=== PATIENT | female | born 1940 | race Caucasian/White ===

== ENCOUNTER 2018-07-30 09:00 | Outpatient (CLI) | payer MEDICARE, BC ==
--- NOTE | 2018-07-30 11:21 | BD ---
DEXA BONE DENSITOMETRY: (Dual energy X-ray Absorptiometry) Date: 07/30/18 HISTORY: 78-year-old postmenopausal white female for baseline, age-related osteoporosis screening examination. Height: 61 Weight: 109 lbs Age of menopause: 62 years COMPARISON: None available. FINDINGS: The bone mineral density (BMD) is given in grams per square centimeter (g/cm2): LUMBAR SPINE: BMD(g/cm2) T-score Z-score L1: 1.112 1.1 3.3 L2: 1.087 0.5 3.0 L3: 1.129 0.4 3.0 L4: 1.063 0.0 2.7 Total: 1.096 0.4 2.9 HIP: Femoral neck: 0.728 -1.1 1.0 Total: 0.918 -0.2 1.6 FRAX WHO Fracture Risk Assessment Tool: 10 Year Fracture Risk * Major osteoporotic fracture: 9.2% Hip fracture: 1.7% Reported Risk Factors: US(), Neck BMD=0.728, BMI=20.6 * Fracture probability is calculated for an untreated patient. Fracture probability may be lower if the patient has received treatment. IMPRESSION: 1. The mean bone mineral density of the lumbar spine is normal. Fracture risk is not increased. 2. The bone mineral density of the femoral neck is osteopenic. Fracture risk is increased. CHARLIE Turner POS: [facility]
--- NOTE | 2018-07-30 11:48 | RAD ---
THORACIC SPINE RADIOGRAPH SERIES TWO VIEWS: INDICATIONS: Age related osteoporosis. FINDINGS: There is an S-shaped curvature of the thoracolumbar spine, extending to the right thoracic spine and convexed to the left within the lumbar spine. There is accentuation of thoracic kyphosis. No eviden ce of an acute compression fracture or significant subluxation. There is multilevel endplate degener ative change. Osseous demineralization is noted. There is prominence of the partially imaged cardia c silhouette, as well as vascular calcification. Incidental note of osseous bridging of the anterior column of the lower cervical spine, incompletely assessed. Correlate for surgical history. IMPRESSION: 1. S-shaped scoliosis, thoracic kyphosis, and multilevel degenerative change of the demineralized th oracic spine. 2. No acute compression fracture is seen. POS: [facility]
--- NOTE | 2018-07-30 11:51 | RAD ---
CERVICAL SPINE SIX VIEWS: 07/30/2018 HISTORY: Spondylosis of the cervical spine. FINDINGS: Neutral lateral examination demonstrates osseous fusion at the C2-C3 and C6-C7 levels. There is farrah re degenerative change at C4-C5 and C5-C6 with disk space narrowing and osteophyte formation, both an teriorly and posteriorly. The neutral lateral exam demonstrates anterolisthesis at C7-T1, measuring in the 3 mm range. Flexion examination demonstrates C7-T1 anterolisthesis to increase to 4 mm. On e xtension, this anterolisthesis is approximately 3 mm. Frontal imaging demonstrates prominent bilater al multilevel facet and uncovertebral osteophyte formation, left greater than right, most prominent a t C3-C4, C4-C5, and C5-C6. Open-mouth odontoid view demonstrates a normal appearing dens and C1-C2 a rticulation. The dens appears grossly unremarkable on the Fuchs view. IMPRESSION: Severe multilevel degenerative change within the cervical spine, as detailed above. There is anterol isthesis at the C7-T1 level, as above. POS: [facility]
== END 2018-07-30 09:01 | disposition home or self-care (01) ==
LOC: BICMAMMO 09:00
PROVIDERS: ATTEND Internal Medicine Rheumatology
DX: M81.0 Age-related osteoporosis without current pathological fracture (principal); M47.892 Other spondylosis, cervical region; S13.9XXA Sprain of joints and ligaments of unspecified parts of neck, initial encounter; M43.13 Spondylolisthesis, cervicothoracic region; M41.9 Scoliosis, unspecified; M47.814 Spondylosis without myelopathy or radiculopathy, thoracic region; M85.859 Other specified disorders of bone density and structure, unspecified thigh
CPT/HCPCS: 72050; 72070; 77080

== ENCOUNTER 2018-08-22 09:22 | Emergency (ER) | payer MEDICARE, BC ==
[2018-08-22 10:15] LABS: #Basophils 0.1 thou/uL (0.0-0.2); #Eosinphils 0.1 thou/uL (0.0-0.7); #Lymphocytes 1.9 thou/uL (1.20-3.40); #Monocytes 0.6 thou/uL (0.11-0.59); #Neutrophils 6.5 thou/uL (1.40-6.50); %Basophils 1.1 % (0.0-1.0); %Eosinophils 1.1 % (0.0-10.0); %Lymphocytes 20.4 % (21.0-51.0); %Neutrophils 71.4 % (42.0-75.0); Hemoglobin 13.5 g/dL (12.0-16.0); Mean Corpuscular HGB CONC 34.7 g/dL (32.0-36.0); Mean Corpuscular Volume 95.3 fL (78.0-98.0); Platelet Count 203 thou/uL (130-400); RBC Distribution Width 12.6 % (11.5-14.5); Red Blood Cell (RBC) Count 4.09 mill/uL (4.20-5.40); White Blood Cell (WBC) Count 9.1 thou/uL (4.8-10.8)
[2018-08-22 10:18] LABS: Bilirubin Negative (Negative); Blood, Urine Trace (Negative); Clarity CLOUDY (Clear); Glucose, Urine (Dipstick) Negative (Negative); Leukocyte Negative (Negative); Nitrite Negative (Negative); Protein, Urine (Dipstick) Negative (Neg-Trace); Specific Gravity, Urine 1.012 (1.002-1.036); Urobilinogen 0.2 mg/dL (0.2-1.0)
[2018-08-22 10:24] LABS: Bacteria/HPF None Seen HPF (None Seen); Hyaline Casts/LPF 0-3 HYALINE CAST LPF (0-3 Hyaline); Pathc Cast-AUWi Flag 0.29 (0-2.49); RBC/HPF 0-3 HPF (0-3); WBC/HPF None Seen HPF (0-3)
[2018-08-22 10:28] LABS: ALT (SGPT) 13 U/L (8-55); AST (SGOT) 21 U/L (5-34); Albumin 4.3 g/dL (3.4-4.8); Alkaline Phosphatase 100 U/L (40-150); Anion Gap 15 mmol/L (10-20); BUN (Urea Nitrogen) 18 mg/dL (9.8-20.1); Bilirubin, Total 1.7 mg/dL (0.2-1.2); Calc. Creatinine Clearance 0 mL/min (70-130); Calcium 9.3 mg/dL (7.8-10.44); Carbon Dioxide 25 mmol/L (23-31); Chloride 104 mmol/L (98-107); Estimated GFR-MDRD 69; Globulin 3.5 g/dL (2.4-3.5); Glucose 95 mg/dL (83-110); Potassium 3.5 mmol/L (3.5-5.1); Protein, Total 7.8 g/dL (6.0-8.3); Sodium 140 mmol/L (136-145)
--- NOTE | 2018-08-22 10:46 | CT ---
CT OF THE HEAD: Date: 08/22/18 COMPARISON: None. HISTORY: Dizziness, bilateral ear pain. TECHNIQUE: Axial CT imaging at 5 mm intervals from vertex through skull base without contrast. FINDINGS: There is extensive periventricular and deep white matter hypodensity, evidence of significant small v essel disease. No intracranial hemorrhage, midline shift, mass effect, or ventricular enlargement. Im aged portion of left maxillary sinus is opacified. No acute osseous abnormality. IMPRESSION: Findings suggesting significant small vessel disease with no intracranial hemorrhage, midline shift, or mass effect. POS: [facility]
[2018-08-22] MEDS ORDERED: Meclizine HCl 25 MG TAB ONE (11:54)
[2018-08-22] MEDS ORDERED: Metoclopramide HCl 10 MG/2 ML VIAL ONE (11:54)
--- NOTE | 2018-08-28 17:20 | EKG ---
Test Reason : DIZZY Blood Pressure : / mmHG Vent. Rate : 080 BPM Atrial Rate : 051 BPM P-R Int : 000 ms QRS Dur : 082 ms QT Int : 398 ms P-R-T Axes : 000 -01 232 degrees QTc Int : 459 ms Atrial fibrillation Abnormal ECG Confirmed by BEE OLIVAS [id number]), publishing editor BONNIE OWENS ([id number]) on 08/28/2018 5:20:09 PM Referred By: MARTA Confirmed By:BEE OLIVAS
== END 2018-08-22 13:44 | disposition home or self-care (01) ==
LOC: ERS 09:22
DX: R42 Dizziness and giddiness (principal); I48.91 Unspecified atrial fibrillation; I10 Essential (primary) hypertension; Z79.899 Other long term (current) drug therapy
CPT/HCPCS: 70450; 80053; 81003; 81015; 84484; 85025; 87086; 93005; 96365; J2765

== ENCOUNTER 2018-10-27 07:39 | Outpatient (CLI) | payer MEDICARE, BC ==
[2018-10-27] MEDS ORDERED: Gadobenate Dimeglumine 529 MG/1 ML (20ML VIAL) ONE (10:14)
--- NOTE | 2018-10-27 10:37 | MRI ---
MRI BRAIN AND INTERNAL AUDITORY CANALS WITH AND WITHOUT CONTRAST: HISTORY: Sudden loss of hearing in the left ear. COMPARISON: None. TECHNIQUE: Brain and IAC MRI performed with and without intravenous Gadolinium administration. Multisequential, multiplanar imaging is performed. FINDINGS: BRAIN: The calvarium has a normal T1 marrow signal intensity. Midline brain parenchymal structures are unremarkable. No parenchymal mass, mass effect, or midline shift. Brain volume is age appropria te. Cortical padilla white matter differentiation is preserved. No evidence of hydrocephalus. There are T2 and FLAIR white matter hyperintensities due to chronic small vessel ischemic change. Central arterial flow voids are maintained. Absent restricted diffusion. Mild mucosal disease of the bilateral paranasal sinuses. Adequate mastoid air cell aeration. No pathologic enhancement of the brain parenchyma. IACs: Appropriate and essentially symmetric T2 signal intensity of both internal auditory canals and inner ear structures. Symmetric enhancement of the bilateral 7th and 8th, as well as 5th cranial ne rve complexes. IMPRESSION: 1. Age appropriate atrophy. 2. Chronic small vessel ischemic changes of the white matter. 3. Absent restricted diffusion. No acute infarct. No pathologic enhancement in the brain parenchym a. 4. No abnormal enhancement or signal intensity in either internal auditory canal or 7th or 8th crani al nerve complexes. POS: [facility]
== END 2018-10-27 07:40 | disposition home or self-care (01) ==
LOC: BICMRI 07:39
PROVIDERS: ATTEND Otolaryngology
DX: H90.3 Sensorineural hearing loss, bilateral (principal); H91.22 Sudden idiopathic hearing loss, left ear; G93.89 Other specified disorders of brain
CPT/HCPCS: 70553; 82565; A9577

== ENCOUNTER 2019-02-19 16:28 | Inpatient (IN) | payer MEDICARE, BC ==
[2019-02-19] MEDS ORDERED: Pantoprazole 40 MG VIAL ONE (19:47)
[2019-02-19 19:56] LABS: Hemoglobin 10.6 g/dL (12.0-16.0)
[2019-02-19 20:16] LABS: ALT (SGPT) 15 U/L (8-55); AST (SGOT) 20 U/L (5-34); Albumin 4.3 g/dL (3.4-4.8); Alkaline Phosphatase 107 U/L (40-150); Anion Gap 13 mmol/L (10-20); BUN (Urea Nitrogen) 18 mg/dL (9.8-20.1); Bilirubin, Total 2.2 mg/dL (0.2-1.2); Calc. Creatinine Clearance 0 mL/min (70-130); Calcium 9.4 mg/dL (7.8-10.44); Carbon Dioxide 28 mmol/L (23-31); Chloride 103 mmol/L (98-107); Estimated GFR-MDRD 70; Globulin 3.1 g/dL (2.4-3.5); Glucose 81 mg/dL (83-110); Potassium 3.6 mmol/L (3.5-5.1); Protein, Total 7.4 g/dL (6.0-8.3); Sodium 140 mmol/L (136-145)
[2019-02-19] MEDS ORDERED: Ondansetron PF 4 MG/2 ML Vial IVP PRN (21:12)
[2019-02-19] MEDS ORDERED: Ondansetron ODT 4 MG TAB SL PRN (21:12)
[2019-02-19] MEDS ORDERED: Acetaminophen 325 MG TAB PO PRN (21:12)
[2019-02-19 21:40] VITALS: BMI 17.7
[2019-02-19] MEDS: Pantoprazole 80 MG, Admixture Fee 1 EACH in Sodium Chloride 0.9% 100 ML IVP SCH (22:17)
--- NOTE | 2019-02-19 23:41 | HP ---
PRIMARY CARE DOCTOR: Gillian Villalba MD. CODE STATUS: Full code. TIME OF EVALUATION: 8:30 p.m. CHIEF COMPLAINT: "I've black stools." HISTORY OF PRESENT ILLNESS: This is a 78-year-old female patient with past medical history of atrial fibrillation, hypertension, came to the hospital after having 3 black stools. The patient has been noticing these since yesterday; however, she reports also having multiple episodes in the past few weeks, where she had some dark brown stools and has developed moderate gradually worsening fatigue with exertion. No diarrhea. No clear triggers. No alleviating factors. The patient does not take any NSAIDs. The patient had a recent colonoscopy that was normal. Never has had an EGD. No history of colon cancer or stomach cancer in the family. REVIEW OF SYSTEMS: CONSTITUTIONAL: No fever, chills, or generalized weakness. RESPIRATORY: No cough, sputum production, or shortness of breath. CARDIOVASCULAR: No chest pain or palpitation. GASTROINTESTINAL: No nausea. No vomiting, diarrhea, or abdominal pain. The patient does have melena. 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 GENITOURINARY: No burning on urination. EXTREMITIES: No leg swelling. All other systems were reviewed and negative except for the findings mentioned above. PAST MEDICAL HISTORY: Positive for findings mentioned in the HPI. PAST SURGICAL HISTORY: The patient has a history of appendectomy, hysterectomy, tonsillectomy. PSYCHIATRIC HISTORY: No previous psych history. SOCIAL HISTORY: No smoking history. No alcohol use. No drug use. FAMILY HISTORY: Includes malignancy in her mother. KNOWN ALLERGIES: Benadryl, iodine, pseudoephedrine, Sudafed. REPORTED MEDICATIONS: 1. Spironolactone. 2. Atorvastatin. 3. Temazepam. 4. Amlodipine. 5. Carvedilol. 6. Citalopram. 7. Eliquis. 8. . 9. Vitamin D3. 10. Colestipol. 11. Zetia. PHYSICAL EXAMINATION: VITAL SIGNS: On presentation, blood pressure 153/70 with heart rate 84, respiratory rate was 18, temperature 98.1. Pain was 0/10. Oxygen saturation was 98% on room air. GENERAL APPEARANCE: The patient is alert, oriented, not in acute distress. HEENT: Eyes, normal conjunctivae. Moist oral mucosa. Anicteric. NECK: No JVD. RESPIRATORY: Bilateral air entry. No rales. No wheezing. Symmetric expansion. CARDIOVASCULAR: Normal rate, regular rhythm. No murmurs. No gallop. No edema. ABDOMEN: Soft. Normal bowel sounds. MUSCULOSKELETAL: Baseline range of motion and strength. No tenderness. SKIN: Warm, intact. No pallor. No rash. No redness. Capillary refill seems to be intact. NEURO: No evidence of any new focal weakness. Cranial nerves seems to be intact. PSYCH: The patient is in good mood. No anxiety. Optimal judgment. LABORATORY DATA: Labs are reviewed. The patient has white count 7.1; hemoglobin initially was 10.8, the second one 10.6, and the previous records reviewed, the hemoglobin was 13.5; platelet count is 212. Chemistry; sodium 140, potassium 3.6, chloride 103, carbon dioxide 28, anion gap 13, BUN 18, creatinine 0.80, GFR 70, glucose 81, calcium 9.4. AST 20, ALT 15, alkaline phosphatase 107. LFTs were negative. ASSESSMENT AND PLAN: The patient will be placed in the hospital with following medical problems; 1. GI bleeding, unclear etiology. The patient was on blood thinner and last dose of Eliquis was more than 24 hours ago. We will monitor hemoglobin. The patient has been started on Protonix. Dr. Cochran will be consulted as per the patient's request. We will continue to watch hemodynamics and will treat accordingly. We will keep n.p.o. for possible procedure in the morning. Of note, the patient has normal colonoscopy recently done by Dr. Cochran. So most likely, she has had no upper gastrointestinal bleeding. 2. Acute blood loss anemia, this is mild. The patient has hemoglobin on records of 13, now is around 10.6. We will continue to monitor and we will treat accordingly. 3. Atrial fibrillation, rate is controlled. Reconcile home medications. We will hold anticoagulation for now. 4. Chronic anticoagulation due to atrial fibrillation, this is probably why the patient had worsening bleeding, will need to be restarted after GI clears the patient. 5. Uncontrolled hypertension. The patient presented with systolic blood pressure 153, that was high. We will reconcile home medications. We will not treat aggressively since the patient is bleeding, may develop hypotension. 6. Deep venous thrombosis prophylaxis . Job ID: [id number]
[2019-02-20] LABS: Hemoglobin 9.8 g/dL (12.0-16.0)
[2019-02-20 04:15] LABS: #Eosinphils 0.2 thou/uL (0.0-0.7); #Lymphocytes 1.6 thou/uL (1.20-3.40); #Monocytes 0.6 thou/uL (0.11-0.59); #Neutrophils 4.1 thou/uL (1.40-6.50); %Basophils 0.5 % (0.0-1.0); %Eosinophils 2.9 % (0.0-10.0); %Monocytes 9.6 % (0.0-10.0); %Neutrophils 62.9 % (42.0-75.0); Hemoglobin 9.9 g/dL (12.0-16.0); Mean Corpuscular HGB CONC 33.9 g/dL (32.0-36.0); Mean Corpuscular Hemoglobin 32.1 pg (27.0-31.0); Mean Corpuscular Volume 94.7 fL (78.0-98.0); Mean Platelet Volume 7.3 fL (7.4-10.4); Platelet Count 187 thou/uL (130-400); RBC Distribution Width 13.2 % (11.5-14.5); Red Blood Cell (RBC) Count 3.07 mill/uL (4.20-5.40); White Blood Cell (WBC) Count 6.5 thou/uL (4.8-10.8)
[2019-02-20 04:30] LABS: Anion Gap 15 mmol/L (10-20); BUN (Urea Nitrogen) 15 mg/dL (9.8-20.1); Calc. Creatinine Clearance 48 mL/min (70-130); Calcium 8.9 mg/dL (7.8-10.44); Carbon Dioxide 23 mmol/L (23-31); Chloride 104 mmol/L (98-107); Estimated GFR-MDRD 79; Glucose 62 mg/dL (83-110); Potassium 3.3 mmol/L (3.5-5.1); Sodium 139 mmol/L (136-145)
[2019-02-20 06:12] LABS: Hemoglobin 9.6 g/dL (12.0-16.0)
[2019-02-20] MEDS: Pantoprazole 80 MG, Admixture Fee 1 EACH in Sodium Chloride 0.9% 100 ML IVP SCH (07:50)
[2019-02-20] MEDS ORDERED: Temazepam 15 MG CAP PO PRN (11:38)
[2019-02-20] MEDS ORDERED: D5 1/2 NS w/20 mEq KCL 1,000 ML IV SCH (11:45)
[2019-02-20 12:44] LABS: Hemoglobin 10.3 g/dL (12.0-16.0)
[2019-02-20] MEDS ORDERED: Lidocaine 1% PF 5 ML VIAL ONE (13:56)
[2019-02-20] MEDS ORDERED: PROPOFOL 200 MG/20 ML VIAL ONE (13:56)
[2019-02-20] MEDS ORDERED: HYDROmorphone 2 MG/ML VIAL SLOW IVP PRN (14:14)
[2019-02-20] MEDS ORDERED: Morphine Sulfate 2 MG/ML SYRINGE SLOW IVP PRN (14:14)
[2019-02-20] MEDS ORDERED: Promethazine HCl 25 MG/ML VIAL SLOW IVP PRN (14:14)
[2019-02-20] MEDS ORDERED: Promethazine HCl 25 MG/ML VIAL IM PRN (14:14)
[2019-02-20] MEDS ORDERED: Ondansetron HCl/PF 4 MG/2 ML Vial IVP PRN (14:14)
[2019-02-20] MEDS: D5 1/2 NS w/20 mEq KCL 1,000 ML IV SCH ×2 (16:01→21:22)
[2019-02-20] MEDS ORDERED: (Icosapent Ethyl [Vascepa] 2 GM) PO SCH (17:00)
[2019-02-20] MEDS ORDERED: Carvedilol 3.125 MG TAB PO SCH (17:00)
[2019-02-20] MEDS: Carvedilol 6.25 MG TAB PO SCH (17:39)
[2019-02-20] MEDS ORDERED: Atorvastatin Calcium 40 MG TAB PO SCH (21:00)
--- NOTE | 2019-02-20 21:11 | OP ---
DATE OF PROCEDURE: 02/20/2019 PROCEDURE PERFORMED: Esophagogastroduodenoscopy, control of hemorrhage. PREPROCEDURE DIAGNOSES: 1. Melena for 2-3 days, drop in hemoglobin from baseline, 13.5 on 08/17, 10.8 on admission and 9.6-10.3 late this morning to this afternoon. 2. She recently changed over from Coumadin to Eliquis for her chronic atrial fibrillation. POSTPROCEDURE DIAGNOSES: 1. Small erosion to the GE junction, slight oozing, injected 1:10,000 epinephrine. This does not appear to be Casi-Miguel tear, it was cauterized with 10-Scottish heater probe with good hemostasis. 2. 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 3. No other arteriovenous malformations or erosions seen. RECOMMENDATIONS: 1. Continue IV PPI q.12 hours. Can stop Protonix drip. 2. Advance diet. 3. Serial H and Hs, next to be checked tomorrow morning if there is no active overt severe hemorrhage. PROCEDURE IN DETAIL: After the patient was informed of the risks, benefits, and possible complications of endoscopy including perforation, bleeding, reaction to medication, and aspiration, informed consent was obtained. The patient was brought to the endoscopy suite, where she was sedated in gradual fashion. Once she was comfortable, a bite block was placed . The endoscope was advanced through the esophagus, stomach, and second and third portions of the duodenum. The esophagus was normal. The stomach was entered and found to be normal with no evidence of old blood or fresh blood. Retroflexed views were normal. The scope was brought back to the GE junction. A small erosion was seen with a slight defect consistent with a small erosion. It maybe that this had bled a little bit. We went ahead and injected that area with epinephrine 1:10,0000 and moved the scope down to the , 2nd and 3rd portions. No overt bleeding could be seen, but it appeared that there was some coffee-ground like material in this area. At the ampulla, she had clear bile coming from it. We evaluated the duodenum a little bit more and watched things and then found this AVM and pulled the superior aspect of the duodenum just distal to the bulb in the 2nd portion which was actively bleeding. This was cauterized with 10-Scottish heater probe and bleeding stopped. No other bleeding sites were seen. The duodenum was washed clear and there was no further coffee-ground like material, reaccumulation of old blood or fresh blood. Retroflexed views in the stomach were normal. The scope was brought back to the GE junction. A small erosion was seen. We decided to go and cauterize it with the 10-Scottish heater probe as well, which we did. The scope was removed. The patient tolerated the procedure well, there were no complications. Findings were discussed with the patient's . Job ID: [id number]
--- NOTE | 2019-02-20 23:39 | PDOC.PN ---
- Subjective Encounter Start Date: 02/20/19 Encounter Start Time: 13:00 Patient seen and examined for GI bleeding. No new episode. s/p EGD. No Melena. No other complaints. No overnight events - Objective Resuscitation Status - Order Detail: 02/19/19 21:57 Resuscitation Status Routine Resuscitation Status: FULL: Full Resuscitation MAR Reviewed: Yes Vital Signs & Weight: Vital Signs (12 hours) Temp Pulse Resp BP Pulse Ox 02/20/19 20:00 94 L 02/20/19 19:53 98.8 F 84 13 138/68 94 L 02/20/19 15:58 97.9 F 85 18 127/76 96 02/20/19 14:55 97.7 F 93 18 130/75 93 L Weight Admit Weight 100 lb 3 oz Weight 100 lb 3 oz I&O: 02/19/19 02/20/19 02/21/19 06:59 06:59 06:59 Intake Total 308.9 200 Balance 308.9 200 Result Diagrams: 02/21/19 05:40 02/21/19 05:40 Phys Exam - Physical Examination Constitutional: NAD Neck: no JVD Respiratory: no wheezing, no rales, no rhonchi, clear to auscultation bilateral Cardiovascular: RRR, no rub no heaves/pulsations Gastrointestinal: soft, non-tender, no distention, positive bowel sounds Musculoskeletal: no edema, pulses present Neurological: non-focal, normal sensation, moves all 4 limbs Psychiatric: normal affect, A&O x 3 Dx/Plan - Plan DVT proph w/SCDs IMPRESSION: GI bleeding due to AVM Acute blood loss anemia Par Afib - anticoag on hold HTN Hypokalemia CKd 2 HLD PLAN: Transfuse PRN if Hb <7 Monitor H/H AM labs s/p EGD Change PPI drip to IV PPI BID Resume Amlodipine/Aldactone Cont Coreg Cont other meds as below Review of Systems - Review of Systems Respiratory: negative: Cough, Dry, Shortness of Breath, Hemoptysis, SOB with Excertion, Pleuritic Pain, Sputum, Wheezing Cardiovascular: negative: chest pain, palpitations, orthopnea, paroxysmal nocturnal dyspnea, edema, light headedness, other Gastrointestinal: negative: Nausea, Vomiting, Abdominal Pain, Diarrhea, Constipation, Melena, Hematochezia, Other - Medications/Allergies Allergies/Adverse Reactions: Allergies Allergy/AdvReac Type Severity Reaction Status Date / Time diphenhydramine Allergy Verified 02/19/19 23:42 [From Benadryl] Iodine and Iodide Containing Allergy Verified 02/19/19 23:42 Produc pseudoephedrine HCl Allergy Verified 02/19/19 21:23 [From Sudafed] zolpidem [From Ambien] Allergy Verified 02/19/19 21:23 Medications: Current Medications Acetaminophen (Tylenol) 650 mg PO Q4H PRN PRN Reason: Headache/Fever or Pain Stop: 02/23/19 07:30 Last Admin: 02/20/19 17:41 Dose: 650 mg Amlodipine Besylate (Norvasc) 2.5 mg PO DAILY [facility] Atorvastatin Calcium (Lipitor) 80 mg PO HS [facility] Last Admin: 02/20/19 21:21 Dose: 80 mg Carvedilol (Coreg) 6.25 mg PO BID-WM [facility] Last Admin: 02/20/19 17:39 Dose: 6.25 mg Cholecalciferol (Vitamin D3) 5,000 units PO DAILY [facility] Colestipol HCl (Colestid) 1 gm PO BID-WM [facility] Last Admin: 02/20/19 17:39 Dose: 1 gm Ezetimibe (Zetia) 10 mg PO DAILY [facility] Escitalopram Oxalate (Lexapro) 10 mg PO DAILY [facility] Estradiol (Estrace) 0.5 mg PO DAILY [facility] Potassium Chloride/Dextrose/Sod Cl (D5 1/2 Ns W/20 Meq Kcl) 1,000 mls @ 75 mls/ hr IV .[id number] [facility] Last Admin: 02/20/19 21:22 Dose: 1,000 mls (Icosapent Ethyl [ (Vascepa] 2 Gm)) 2 gm PO BID-WM [facility] Ondansetron HCl (Zofran) 4 mg IVP Q6H PRN PRN Reason: Nausea/Vomiting Stop: 02/24/19 07:30 Ondansetron HCl (Zofran Odt) 4 mg SL Q6H PRN PRN Reason: Nausea/Vomiting Stop: 02/23/19 07:30 Pantoprazole Sodium (Protonix) 40 mg IVP DAILY [facility] Sodium Chloride (Flush - Normal Saline) 10 ml IVF PRN PRN PRN Reason: Saline Flush Spironolactone (Aldactone) 25 mg PO Q2DAYS [facility] Temazepam (Restoril) 15 mg PO HS PRN PRN Reason: Insomnia Last Admin: 02/20/19 21:21 Dose: 15 mg
[2019-02-21] MEDS: D5 1/2 NS w/20 mEq KCL 1,000 ML IV SCH (04:11)
[2019-02-21 06:15] LABS: #Eosinphils 0.1 thou/uL (0.0-0.7); #Lymphocytes 1.4 thou/uL (1.20-3.40); #Neutrophils 8.2 thou/uL (1.40-6.50); %Basophils 0.2 % (0.0-1.0); %Eosinophils 0.9 % (0.0-10.0); %Lymphocytes 13.3 % (21.0-51.0); %Neutrophils 76.6 % (42.0-75.0); Hemoglobin 8.8 g/dL (12.0-16.0); Mean Corpuscular HGB CONC 32.9 g/dL (32.0-36.0); Mean Corpuscular Hemoglobin 31.1 pg (27.0-31.0); Mean Corpuscular Volume 94.4 fL (78.0-98.0); Mean Platelet Volume 7.7 fL (7.4-10.4); Platelet Count 178 thou/uL (130-400); RBC Distribution Width 13.5 % (11.5-14.5); Red Blood Cell (RBC) Count 2.84 mill/uL (4.20-5.40); White Blood Cell (WBC) Count 10.6 thou/uL (4.8-10.8)
[2019-02-21 06:40] LABS: Anion Gap 11 mmol/L (10-20); BUN (Urea Nitrogen) 11 mg/dL (9.8-20.1); Calc. Creatinine Clearance 41 mL/min (70-130); Calcium 8.6 mg/dL (7.8-10.44); Carbon Dioxide 27 mmol/L (23-31); Chloride 105 mmol/L (98-107); Estimated GFR-MDRD 67; Glucose 140 mg/dL (83-110); Magnesium 1.5 mg/dL (1.6-2.6); Potassium 3.5 mmol/L (3.5-5.1); Sodium 139 mmol/L (136-145)
[2019-02-21] MEDS ORDERED: Pantoprazole 40 MG VIAL IVP SCH (09:00)
[2019-02-21] MEDS ORDERED: Escitalopram Oxalate 10 mg Tablet PO SCH (09:00)
[2019-02-21] MEDS ORDERED: Spironolactone 25 MG TAB PO SCH (09:00)
[2019-02-21] MEDS ORDERED: Amlodipine 5 MG TAB PO SCH (09:00)
[2019-02-21] MEDS ORDERED: Estradiol 1 MG TAB PO SCH (09:00)
[2019-02-21] MEDS ORDERED: Ezetimibe 10 MG TAB PO SCH (09:00)
[2019-02-21] MEDS: Carvedilol 6.25 MG TAB PO SCH (10:14)
[2019-02-21] MEDS ORDERED: Magnesium Sulfate 2 GM in Sodium Chloride 0.9% 100 ML IVPB SCH (10:15)
[2019-02-21] MEDS ORDERED: Potassium Chloride 10 MEQ TAB PO SCH ×2 (10:15→17:00)
[2019-02-21] MEDS ORDERED: Magnesium 2 GM/50 ML 2 GM in Premix Bag 1 BAG IVPB SCH (10:45)
[2019-02-21 12:53] VITALS: BP 99/57; TEMP 97.7
--- NOTE | 2019-02-21 13:18 | PRG ---
DATE OF SERVICE: 02/21/2019 SUBJECTIVE: Ms. Davis is tolerating diet last night. She has had no melena and no nausea or vomiting. PHYSICAL EXAMINATION: VITAL SIGNS: Temperature is 97, pulse . ABDOMEN: Soft and nontender. EXTREMITIES: No clubbing, cyanosis, or edema. LABORATORY DATA: Hemoglobin is 8.8, white count is 10.6, platelet count 173. ASSESSMENT: Upper gastrointestinal bleeding, likely due to anticoagulation with Eliquis and bleeding AVMs found at endoscopy. She had a colonoscopy last year, which was normal and this does not need to be repeated. RECOMMENDATIONS: We will change Protonix to p.o., advance diet, and we will check a hemoglobin this afternoon. If it remains stable, I think she can go home and then resume her Eliquis in about 3 days. ADDENDUM: I talked with Dr. Fitch and he wants to decrease her Eliquis to 2.5 mg b.i.d. from 5 mg b.i.d. when this is resumed. Job ID: [id number]
--- NOTE | 2019-02-21 18:07 | DIS ---
DATE OF ADMISSION: 02/19/2019 DATE OF DISCHARGE: 02/21/2019 DISCHARGE DISPOSITION: Home. FOLLOWUP: 1. Follow up with primary care physician, Dr. Carri Maguire, after 1 week. 2. Follow up with Dr. White and Dr. Fitch in 2 weeks. ALLERGIES: THE PATIENT IS ALLERGIC TO MULTIPLE MEDICATIONS INCLUDING IODINE, BENADRYL, AMBIEN, AND SUDAFED. DISCHARGE MEDICATIONS: Eliquis has been reduced to 2.5 mg twice a day. The patient will restart Eliquis on 23 February. All other home medications were left unchanged. INPATIENT PROCEDURES: On February 20, 2019, the patient underwent EGD, that showed small erosion to the GE junction with slight oozing. This was injected with epinephrine. There was also arteriovenous malformation, actively bleeding in the duodenal second portion that was cauterized. The patient was seen and examined on the day of discharge. Denies any new complaints. No chest pain, shortness of breath, or palpitations reported. Repeat basic metabolic profile with magnesium after 1 or 2 weeks is recommended, primary care physician advised to follow. SIGNIFICANT LABORATORY DATA: Potassium at discharge 3.5 and magnesium at discharge 1.5, replaced. BRIEF HOSPITAL COURSE: The patient is a 78-year-old female with chronic atrial fibrillation on Eliquis, presented to the hospital with dark tarry stools. Please refer to the history and physical by Dr. Rand for further details. The patient was admitted to the hospital with a diagnosis of GI bleeding. Hemoglobin was closely monitored. Hemoglobin on admission was 10.6. At discharge is 9.0. She underwent EGD as discussed above. Stool for occult blood was positive. The case was discussed with Dr. Fitch, who recommended reducing Eliquis to 2.5 mg twice a day. She will resume Eliquis after 24 hours. She also had some electrolyte abnormalities, which were replaced. She appears stable for discharge. FINAL DIAGNOSES: 1. Upper gastrointestinal bleeding secondary to small erosions to the gastroesophageal junction as well as arteriovenous malformation in the second portion of the duodenal. 2. Acute blood loss anemia. 3. Chronic atrial fibrillation on anticoagulation. 4. Hypertension. 5. Anxiety. 6. Hypokalemia, replaced. 7. Hypomagnesemia, replaced. 8. Chronically elevated total bilirubin. Primary care physician advised to follow. 9. Chronic kidney disease stage 2. 10. Hyperlipidemia. PLAN: Plan of care was discussed with the patient in detail and she stated understanding. Job ID: [id number]
--- NOTE | 2019-02-21 22:40 | CON ---
DATE OF CONSULTATION: 02/20/2019 REASON FOR CONSULT: GI bleed. HISTORY OF PRESENT ILLNESS: Ms. Davis is a pleasant 78-year-old female who came to the emergency room secondary to feeling weak, progressively over the past 4-6 weeks, and development of melenic stools yesterday morning. She gone to urgent care on the [place] area, where she had a blood count. She was found to be anemic and they sent her over to the hospital for admission. She notes that she just had decreased exercise tolerance recently. She has been eating well, but in our office had some darker stools and yesterday morning had 3 black stools, prompting her to go in for evaluation. She does take Eliquis. She had previously been on Coumadin, but has been off this for a few months, and is on Eliquis now for atrial fibrillation. She does not take any NSAIDs or aspirin. Only takes Tylenol for [id number] pain reliever. She did have a normal colonoscopy presumably for chronic diarrhea and biopsies were obtained, this was in 03/2018. She has had prior history of polyps before. She states she maybe lost 2-3 pounds, but overall had been doing well except for the fatigue. PAST MEDICAL HISTORY: Atrial fibrillation with no coronary artery disease. PAST SURGICAL HISTORY: 1. Appendectomy. 2. Hysterectomy. 3. Tonsillectomy. 4. Recent colonoscopy. SOCIAL HISTORY: No smoking, alcohol, or drug use. Her is here at the bedside with her. FAMILY HISTORY: Malignancy in her mother, she is unsure of what type. MEDICATIONS AT HOME: 1. Spironolactone. 2. Atorvastatin. 3. Temazepam. 4. Amlodipine. 5. Carvedilol. 6. Eliquis. 7. Citalopram. 8. Vitamin D3. 9. Colestipol. 10. Zetia. ALLERGIES: BENADRYL, IODINE, AND SUDAFED. PRESENT MEDICATIONS: Here; 1. Tylenol. 2. Carvedilol. 3. Zofran. 4. Protonix drip. 5. D5 half-normal with 20 K at 125 an hour. 6. Restoril. REVIEW OF SYSTEMS: Negative for chest pain. Negative for palpitations. Negative for dyspnea on exertion, shortness of breath, cough, wheezing, or abdominal pain. She has had that comes out between her vaginal and rectal area at times and sometimes there is bright red blood there. PHYSICAL EXAMINATION: VITAL SIGNS: Temperature 97, pulse 89, blood pressure 115/63. GENERAL: She is a thin. She is alert and oriented to person, place, and time. She is in no distress. HEENT: Oropharynx with no lesions. She is slightly pale. LUNGS: Clear. HEART: Regular rate and rhythm without clicks or murmurs. Slightly irregular. ABDOMEN: Soft. RECTAL: Some melenic stool. Exam of the perianal area and vaginal area reveals a little bit of skin atrophy at the posterior fornix of the vaginal areas. LABORATORY DATA: Hemoglobin was 9.8 yesterday at 2300 hours; it was 10.6 at 1900 hours; at 1223 hours, it was 13.5; this morning, her hemoglobin is 9.6. Platelets are 187. INR has not been done as she is on Eliquis. Sodium 139, potassium 3.3, BUN and creatinine 15 and 0.72. Liver function tests were normal on the except for bilirubin of 2.2. It seems that she has had intermittent mildly elevated bilirubin for years. ASSESSMENT: 1. Gastrointestinal bleed, likely upper, on Eliquis. She has been off now for 48 hours, last dose was Thursday evening. She is stable, but has had a significant drop in hemoglobin. She is on a proton pump inhibitor now. Plan for EGD today, IV Protonix, IV fluids. 2. History of mildly elevated bilirubin, this is likely syndrome, has been noted over the years. 3. Recent colonoscopy normal. 4. Atrial fibrillation, on beta jeremy, off Eliquis for just about 48 hours. Job ID: [id number]
== END 2019-02-21 17:00 | disposition home or self-care (01) | DRG 378 ==
LOC: ERS 16:28 → T4-A 19:30
PROVIDERS: ADMIT Internal Medicine; ATTEND Internal Medicine
PROC: 0W3P8ZZ Control Bleeding in Gastrointestinal Tract, Via Natural or Artificial Opening Endoscopic (ICD-10-PCS; principal; 2019-02-20)
DX: K31.811 Angiodysplasia of stomach and duodenum with bleeding (principal); D62 Acute posthemorrhagic anemia; I12.9 Hypertensive chronic kidney disease with stage 1 through stage 4 chronic kidney disease, or unspecified chronic kidney disease; N18.2 Chronic kidney disease, stage 2 (mild); E78.5 Hyperlipidemia, unspecified; E87.6 Hypokalemia; K28.4 Chronic or unspecified gastrojejunal ulcer with hemorrhage; I48.2 Chronic atrial fibrillation; F41.9 Anxiety disorder, unspecified; E83.42 Hypomagnesemia; E80.7 Disorder of bilirubin metabolism, unspecified; Z90.49 Acquired absence of other specified parts of digestive tract; Z90.89 Acquired absence of other organs; Z90.710 Acquired absence of both cervix and uterus; Z88.8 Allergy status to other drugs, medicaments and biological substances; Z79.01 Long term (current) use of anticoagulants
CPT/HCPCS: 36415; 80048; 80053; 82274; 83735; 85014; 85018; 85025; 86850; 86900; 86901; 96374; C9113; J2001; J2704; J3475; J3490

== ENCOUNTER 2019-03-01 00:51 | Inpatient (IN) | payer MEDICARE, BC ==
[2019-03-01 01:53] LABS: #Basophils 0.1 thou/uL (0.0-0.2); #Eosinphils 0.2 thou/uL (0.0-0.7); #Monocytes 0.7 thou/uL (0.11-0.59); #Neutrophils 5.7 thou/uL (1.40-6.50); %Basophils 0.7 % (0.0-1.0); %Eosinophils 2.3 % (0.0-10.0); %Lymphocytes 23.4 % (21.0-51.0); %Monocytes 7.9 % (0.0-10.0); %Neutrophils 65.5 % (42.0-75.0); Hemoglobin 7.3 g/dL (12.0-16.0); Mean Corpuscular HGB CONC 33.6 g/dL (32.0-36.0); Mean Corpuscular Hemoglobin 31.5 pg (27.0-31.0); Mean Corpuscular Volume 93.9 fL (78.0-98.0); Mean Platelet Volume 6.9 fL (7.4-10.4); Platelet Count 232 thou/uL (130-400); RBC Distribution Width 13.4 % (11.5-14.5); Red Blood Cell (RBC) Count 2.32 mill/uL (4.20-5.40); White Blood Cell (WBC) Count 8.7 thou/uL (4.8-10.8)
[2019-03-01 02:10] LABS: ALT (SGPT) 9 U/L (8-55); AST (SGOT) 15 U/L (5-34); Albumin 3.5 g/dL (3.4-4.8); Alkaline Phosphatase 66 U/L (40-150); Anion Gap 13 mmol/L (10-20); BUN (Urea Nitrogen) 18 mg/dL (9.8-20.1); Calc. Creatinine Clearance 0 mL/min (70-130); Calcium 9.1 mg/dL (7.8-10.44); Carbon Dioxide 26 mmol/L (23-31); Chloride 106 mmol/L (98-107); Estimated GFR-MDRD 55; Globulin 2.4 g/dL (2.4-3.5); Glucose 99 mg/dL (83-110); Potassium 3.8 mmol/L (3.5-5.1); Protein, Total 5.9 g/dL (6.0-8.3); Sodium 141 mmol/L (136-145)
[2019-03-01] MEDS ORDERED: Ondansetron PF 4 MG/2 ML Vial ONE (02:39)
[2019-03-01] MEDS ORDERED: Acetaminophen 325 MG TAB PO PRN (05:52)
[2019-03-01 06:35] VITALS: BMI 19.6
--- NOTE | 2019-03-01 06:52 | HP ---
CHIEF COMPLAINT: Hematochezia. HISTORY OF PRESENT ILLNESS: This patient is a 78-year-old female, who was just discharged recently. The patient was admitted at that time for GI bleed. She was seen by GI service and underwent endoscopy, which revealed small erosions at the gastroesophageal junction with slight oozing. This area was cauterized. There was also an AVM actively bleeding in the duodenum at the second portion. This was also cauterized. The patient had been on anticoagulation for atrial fibrillation. She was resumed back on that recently and today developed a recurrence of bright red blood per rectum. She indicates that the bleeding on this occasion is worse than it was on her previous admission. She also states that the stool was more black at that time, now it is bright red. She has some slight discomfort in her right lower quadrant, but otherwise denies any significant cramping. Denies fevers or chills and denies any nausea or vomiting. REVIEW OF SYSTEMS: All other systems were reviewed, all pertinent positives and negatives noted in the history of present illness. PAST MEDICAL HISTORY: Notable for hypertension, atrial fibrillation, and the above mentioned AVM. She also reports that she had a colonoscopy done in October of this year without significant findings, although she does have history of colonic polyps. FAMILY HISTORY: Mother had cancer. SOCIAL HISTORY: The patient is a nonsmoker, nondrinker, and nondrug user. She is . She is full code. Her would be her surrogate decision maker, should that be necessary. ALLERGIES: BENADRYL, IODINE, SUDAFED, AND PSEUDOEPHEDRINE. MEDICATIONS: 1. Eliquis 2.5 mg b.i.d. 2. Zetia 10 mg daily. 3. Temazepam 15 mg nightly. 4. Colestipol 1 g b.i.d. 5. Aldactone 25 mg daily. 6. Estradiol 0.5 mg daily. 7. Lexapro 10 mg daily. 8. Cholecalciferol 5000 units daily. 9. Coreg 6.25 b.i.d. 10. Atorvastatin 80 mg daily. 11. Amlodipine 2.5 daily. 12. Vascepa 2 g orally b.i.d. PHYSICAL EXAMINATION: VITAL SIGNS: Currently, she is systolics in the 90s, diastolics in the 50s, heart rates normal. She is afebrile. GENERAL APPEARANCE: A very pale, age-appropriate female, in no distress. Awake, alert, oriented, pleasant, and cooperative. HEENT: PERRL. No OP lesions. NECK: Supple and symmetric. No lymphadenopathy, JVD, or bruits. HEART: Irregularly irregular without murmurs, gallops, or rubs. LUNGS: Clear to auscultation bilaterally with good chest wall expansion and air exchange. ABDOMEN: Soft, nondistended. Positive bowel sounds. There is tenderness to palpation in the right lower quadrant with out guarding or rebound. EXTREMITIES: No cyanosis, clubbing, or edema. NEUROLOGIC: She appears to be fully intact with normal cognition and cranial nerves intact and spontaneous movement of all extremities. PSYCH: The patient has normal affect and behavior. LABORATORY DATA: White count is 8.7, hemoglobin 7.3, and platelets 232. Chemistries normal. Stool for occult blood is positive. No other report is currently available. IMPRESSION AND PLAN: 1. Gastrointestinal bleed with hematochezia, appears to be more consistent with a lower gastrointestinal bleed at this time. The patient had some arteriovenous malformations in the upper tract. It is possible she may have some bleeding in her lower gastrointestinal tract now as well. We will hold on her Eliquis. Transfuse as needed and consult GI. 2. History of atrial fibrillation, on Eliquis. We will hold Eliquis for now in light of the GI bleeding. 3. Hyperlipidemia. Continue with usual home medications. 4. Hypertension. We will hold off on anti-hypertensives for now due to the hypotension. Job ID: [id number]
[2019-03-01 08:41] LABS: #Basophils 0.1 thou/uL (0.0-0.2); #Eosinphils 0.1 thou/uL (0.0-0.7); #Lymphocytes 1.6 thou/uL (1.20-3.40); #Monocytes 0.5 thou/uL (0.11-0.59); %Basophils 0.8 % (0.0-1.0); %Eosinophils 1.4 % (0.0-10.0); %Lymphocytes 18.9 % (21.0-51.0); %Monocytes 5.9 % (0.0-10.0); Hemoglobin 7.8 g/dL (12.0-16.0); Mean Corpuscular Hemoglobin 32.1 pg (27.0-31.0); Mean Corpuscular Volume 94.4 fL (78.0-98.0); Mean Platelet Volume 7.5 fL (7.4-10.4); Platelet Count 189 thou/uL (130-400); RBC Distribution Width 12.8 % (11.5-14.5); Red Blood Cell (RBC) Count 2.43 mill/uL (4.20-5.40); White Blood Cell (WBC) Count 8.2 thou/uL (4.8-10.8)
[2019-03-01] MEDS ORDERED: Escitalopram Oxalate 10 mg Tablet PO SCH (10:30)
[2019-03-01 16:54] LABS: Hemoglobin 7.4 g/dL (12.0-16.0)
[2019-03-01] MEDS: Pantoprazole 40 MG VIAL IVP SCH (19:29)
[2019-03-01] MEDS: GoLYTELY 4,000 ml Bottle PO SCH (21:11)
[2019-03-01 23:14] LABS: Hemoglobin 9.1 g/dL (12.0-16.0)
--- NOTE | 2019-03-02 02:15 | CON ---
DATE OF CONSULTATION: 03/01/2019 REASON FOR CONSULTATION: Hematochezia. CONSULTING PHYSICIAN: Usama Lee MD HISTORY OF PRESENT ILLNESS: The patient is a 78-year-old female with past medical history of hypertension, atrial fibrillation, on anticoagulation, and a recent diagnosis of bleeding duodenal arteriovenous malformation, presenting with complaints of hematochezia. The patient was recently hospitalized approximately 2 weeks ago with complaints of melenic type stools, for which she underwent upper endoscopy on February 20, 2019. During that upper endoscopy, there was an area of mild oozing of blood at the GE junction that was successfully intervened upon with bipolar cautery, but a small arteriovenous malformation was also seen actively bleeding within the duodenum that was acted upon by bipolar cautery as well. She experienced good hemostasis with no further episodes of melena during that admission and was ultimately discharged to home. She restarted anticoagulation within 48 to 72 hours after admission and had been doing well up until yesterday when after dinner she was awoken at night with the sensation to have a bowel movement. Upon having a bowel movement, she had a large grossly bloody bowel movement with associated nausea, diaphoresis, and dizziness upon passage of this bowel movement. With the large amount of blood defecated, it prompted her to call EMS with transfer the patient to [facility] for further evaluation. On evaluation in the hospital, her H and H was slightly decreased when compared to her discharge H and H, and she was admitted to the hospital for further evaluation of her hematochezia. While as an inpatient, she has had 2 additional bloody bowel movements, one around noon today that consisted of a large amount of bloody stool seen by both patient and nursing staff, as well as an additional smaller bloody bowel movement later this evening. With the appearance of the bloody bowel movements that was associated with increased right-sided abdominal soreness, what seems like a presyncopal event with a larger bloody bowel movement earlier today, a warmer feeling all over her body, but not necessarily subjective fever. Currently, she denies any actual vomiting, dysphagia, odynophagia, or melenic type stools and of note, her last dose of Eliquis was yesterday evening prior to the onset of her hematochezia. REVIEW OF SYSTEMS: A 10-category review of systems was obtained with all responses negative except for the pertinent positives as listed in the HPI. PAST MEDICAL HISTORY: As per HPI. PAST SURGICAL HISTORY: Prior EGD and colonoscopy. FAMILY HISTORY: Denies any GI malignancies. SOCIAL HISTORY: Denies any tobacco, alcohol, or illicit drug use. OUTPATIENT MEDICATIONS: Reviewed. ALLERGIES: BENADRYL, IODINE, SUDAFED AND PSEUDOEPHEDRINE. PHYSICAL EXAMINATION: VITAL SIGNS: Temperature 98.1, pulse 104, blood pressure 128/63, respiratory rate 16, saturating 98% on room air. GENERAL: The patient was lying in bed, in no acute distress. Alert and oriented x4. HEENT: Normocephalic, atraumatic. NECK: Supple. No JVD or scleral icterus noted. CARDIOVASCULAR: Irregularly irregular rhythm with possible tachycardic rate, but difficult to tell with auscultation only. No discernible murmurs, gallops, or rubs. RESPIRATORY: Clear to auscultation bilaterally with no discernible wheezes or rales. ABDOMEN: Normoactive bowel sounds. Soft, nondistended, mild tenderness to palpation in the lower abdominal quadrants. EXTREMITIES: No cyanosis, clubbing, or edema. LABORATORY DATA: CBC with a white blood cell count of 8.2, hemoglobin 7.8, hematocrit 22.9, platelets 189. Chemistry with a sodium of 141, potassium 3.8, chloride 106, CO2 26, BUN 18, creatinine 0.99, glucose 99, AST 15, ALT 9, alkaline phosphatase 66, total bilirubin 1.0. IMAGING DATA: EGD performed on February 20, 2019 showed a small erosion at the GE junction that was slightly oozing blood, but successfully intervened upon with bipolar cautery. A small arteriovenous malformation was also seen in the second portion of the duodenum and successfully intervened upon by bipolar cautery. Upon review of the patient's chart, the patient underwent a colonoscopy on April 19, 2018, which showed a few small-mouthed diverticula seen within the sigmoid colon. Otherwise, normal mucosa was seen throughout the entire colon. ASSESSMENT AND PLAN: The patient is a 78-year-old female with past medical history of hypertension, atrial fibrillation, on anticoagulation, and recent diagnosis of duodenal arteriovenous malformation, presenting with hematochezia concerning for diverticular bleeding. Hematochezia. The patient is presenting with a recent history of a duodenal arteriovenous malformation that was actively oozing blood and creating a melenic type stools and a drop in her H and H. This was successfully intervened upon by bipolar cauterization on February 20, 2019 during the EGD. She was subsequently discharged to home and was doing well until yesterday evening when she had an acute onset of bright red blood per rectum, characterized as a large amount of blood both within the toilet and on the toilet paper. She was restarted on her Eliquis shortly after she was discharged from the hospital and most likely contributed to the larger bowel movement she has been having thus far. Given the presence of diverticulosis within the sigmoid colon, the appearance of hematochezia at this time is concerning for diverticular type bleed. However, this could also be indicative of a brisk upper GI bleed with a repeat upper endoscopy indicated to re-evaluate the upper GI tract. Differential could include gastritis, peptic ulcer disease, recurrent arteriovenous malformation in either the upper or lower GI tract, diverticular bleeding, Dieulafoy lesion, or colitis (less likely). RECOMMENDATIONS: 1. We would continue to trend H and H and transfuse as necessary to maintain an H and H of 7/21. 2. Continue to monitor clinically for signs of active GI bleeding. 3. We will continue to monitor the patient's vital signs with low threshold of transferring the patient to the IMCU for closer monitoring if she exhibits significant tachycardia and/or hypotension. 4. We will plan for both EGD and colonoscopy tomorrow for evaluation of both the upper and lower GI tract. Please make the patient n.p.o. at midnight with GoLYTELY prep in preparation for these procedures. 5. We would continue to hold any anticoagulation at this time. We will continue to follow. Please call with any questions. Job ID: [id number]
[2019-03-02 05:34] LABS: Hemoglobin 8.8 g/dL (12.0-16.0)
[2019-03-02] MEDS: GoLYTELY 4,000 ml Bottle PO SCH (09:30)
[2019-03-02] MEDS: Pantoprazole 40 MG VIAL IVP SCH ×2 (10:11→22:42)
[2019-03-02] MEDS: Escitalopram Oxalate 10 mg Tablet PO SCH (12:34)
[2019-03-02] MEDS ORDERED: PROPOFOL 200 MG/20 ML VIAL ONE (16:31)
--- NOTE | 2019-03-02 16:42 | OP ---
DATE OF PROCEDURE: 03/02/2019 PROCEDURES PERFORMED: Esophagogastroduodenoscopy with control of hemorrhage, colonoscopy (diagnostic). INDICATION FOR PROCEDURE: Hematochezia, GI bleeding. DESCRIPTION OF PROCEDURE: After the risks and benefits of the procedure were explained to the patient including risks of bleeding, infection, perforation, reactions to anesthesia, aspiration, and/or pain, informed consent was obtained. The patient was then taken to the endoscopy suite, where deep sedation was administered via propofol and anesthesia support. Once adequate sedation was achieved, the standard gastroscope was introduced into the mouth with intubation of the esophagus, stomach, and the proximal small intestine with the findings listed below. After careful inspection of the duodenal mucosa, a small ulceration was seen in the second portion of the duodenum consistent with the cauterized site from the previous endoscopy. It had an adherent clot consistent with recent active bleeding. Hemoclip x1 was placed across this with good hemostasis achieved. Upon conclusion of the upper endoscopy, all equipment was removed from the patient and the bed was rotated 180 degrees in anticipation of the colonoscopy. After a digital rectal examination was performed, the standard colonoscope was introduced into the rectum and advanced to the terminal ileum with mild difficulty requiring manual abdominal pressure to facilitate passage of the scope. The quality of the prep was fair to poor within the cecum and ascending colon with partial visualization of the colonic mucosa in that region. However, adequate views were obtained throughout the remainder of the colon. The patient tolerated the procedure well with no immediate perioperative complications. Upon conclusion of the procedure, all equipment was removed from the patient and she was transferred to PACU in satisfactory condition. EGD FINDINGS: Esophagus: Normal-appearing mucosa was seen in the proximal, mid, and distal esophagus. There was no evidence of erosions, ulcerations, mass, lesions, or active/recent bleeding. Stomach: A [id number] amount of bright red blood was seen throughout the entire stomach, but upon aggressive irrigation and suctioning, there was no underlying pathology to be seen. Otherwise, the gastric mucosa appeared normal within the cardia, fundus, body, greater curvature, antrum, and incisura. There was no evidence of erosions, ulcerations, mass, lesions, or active/recent bleeding. Duodenum: A moderate amount of bright red blood was seen upon entry into the duodenal bulb, but again with irrigation and suctioning, no identifiable pathology was seen. However, upon entry into the second portion of the duodenum, again increased amounts of bright red blood were seen with a 2 to 3 mm ulceration with an adherent clot overlying it seen within the second portion consistent with the previously treated arteriovenous malformation. The ulcer bed itself looked fairly intact, but with the adherent clot as a high-risk stigmata, this was intervened upon with hemoclip x1. At the end of the maneuver, there was no observed bleeding from the site. Otherwise, there was no evidence of erosions or mass lesions within the duodenal bulb or second portion of the duodenum. IMPRESSION: A 2 to 3 mm ulcerated region in the second portion consistent with the previously treated arteriovenous malformation showing adherent clot indicating high-risk stigmata bleeding, now status post hemoclip placement x1. Otherwise, normal upper endoscopy. COLONOSCOPY FINDINGS: Digital rectal exam: Normal. Normal findings were seen on external examination. Colon findings: A [id number] amount of retained greenish stool was seen in both the cecum and the ascending colon interfering with adequate visualization of the colonic mucosa. In these two regions, approximately 70% to 80% of the colonic mucosa was able to be adequately visualized. However, it was adequate for the evaluation of GI bleeding or mass lesions, both of which were not seen in this location. Intubation of the terminal ileum did not yield any bleeding or evidence of melena. Normal-appearing mucosa was seen at the ileocecal valve, appendiceal orifice, cecum, ascending colon, transverse colon, and descending colon. Scattered small diverticula were seen within the sigmoid colon consistent with [id number] sigmoid diverticulosis, but there was no evidence of increased mucosal erythema or bleeding within this region concerning for diverticulitis or diverticular bleeding. Normal-appearing mucosa was then seen within the rectum with rectal retroflexion unable to be performed due to the size of the patient's rectum itself (very small). Instead, no abnormalities were seen on slow withdrawal through the anal canal. IMPRESSION: 1. Fair to poor colonic preparation within the cecum and ascending colon interfering with visualization, but adequate for evaluation of gross mucosal lesions or active bleeding. 2. Normal terminal ileum without any evidence of active/recent bleeding. 3. Mild sigmoid diverticulosis. 4. No etiology of the patient's bleeding was seen during this portion of the examination. RECOMMENDATIONS: 1. Would continue to trend H and H and transfuse as necessary to maintain an H and H of 7/21. 2. Would continue to monitor clinically for signs of active GI bleeding. 3. Would advance the patient's diet to clear liquid diet and monitor as above. 4. Would continue PPI 40 mg b.i.d. for the foreseeable future. 5. If the patient does exhibit increased hematochezia or melena, would then consider only repeat upper endoscopy for further evaluation of this arteriovenous malformation. We will continue to follow. Please call with any questions. Job ID: [id number]
--- NOTE | 2019-03-02 16:57 | PRG ---
DATE OF SERVICE: 03/02/2019 SUBJECTIVE: The patient was seen and examined at the bedside. She stopped having some rectal bleeding after she did the bowel prep and she is waiting for her upper and lower scoping by Dr. Granda. OBJECTIVE: VITAL SIGNS: Blood pressure is 150/67, pulse is 93, temperature is 98.3, respiratory rate is 16, and O2 saturation is 97% on room air. HEENT: Head, atraumatic and normocephalic. Skin is palish. Conjunctivae palish. Oral mucosa is somewhat dry. NECK: Supple. LUNGS: Clear. HEART: S1 and S2, normal. ABDOMEN: Soft and nontender. Bowel sounds are present. EXTREMITIES: No clubbing, cyanosis, or edema. NEUROLOGIC: She is able to move her all 4 extremities. There is no any motor or sensory deficits. LABORATORY DATA: Hemoglobin is 8.8 and hematocrit 25.0. IMPRESSION: 1. Gastrointestinal bleeding. This is lower GI bleed, but she was placed on a Protonix IV in case of this is a high transit from upper gastrointestinal area. 2. History of atrial fibrillation, on Eliquis prior to this hospitalization. 3. Hyperlipidemia. 4. Hypertension, still holding most of her home medications because of the bleeding and borderline blood pressure she had. We will see whether she can be restarted on some of them tomorrow. We will have more information about her GI findings after colonoscopy and esophagogastroduodenoscopy. Job ID: [id number]
[2019-03-02] MEDS ORDERED: Temazepam 15 MG CAP PO PRN (23:59)
[2019-03-03] MEDS: Escitalopram Oxalate 10 mg Tablet PO SCH (09:33)
[2019-03-03] MEDS: Pantoprazole 40 MG VIAL IVP SCH ×2 (09:34→21:36)
[2019-03-03 12:19] LABS: Hemoglobin 9.7 g/dL (12.0-16.0)
--- NOTE | 2019-03-03 14:47 | PRG ---
DATE OF SERVICE: 03/03/2019 SUBJECTIVE: The patient is seen and examined at the bedside. She complains about some soreness around her rectum area. Also, she noticed some dysuria. No more bleeding. OBJECTIVE: VITAL SIGNS: Blood pressure is 105/55, pulse is 96, temperature is 98.3, respirations 16, and O2 saturation is 97% on room air. HEENT: Her head is atraumatic and normocephalic. Sclerae are nonicteric. Conjunctivae are palish. Oral mucosa is moist. NECK: Supple. LUNGS: Clear. HEART: S1 and S2. Irregularly irregular. No S3. No S4. No any murmur. ABDOMEN: Soft. Mildly tender in the suprapubic area. No guarding. No masses. EXTREMITIES: No clubbing, cyanosis, or edema. NEUROLOGIC: She is alert and oriented x4. There is no any motor or sensory deficits present. Cranial nerves are intact. LABORATORY DATA: Showed hemoglobin of 9.7 and hematocrit 28.4. IMPRESSION: 1. Gastrointestinal bleeding, status post EGD on colonoscopy, 2 to 3 mm ulcerated region in the second portion, but consistent with previously treated arteriovenous malformation showing at her end clot indicating high-risk stigmata bleeding. This was hemoclipped and otherwise, the scope was normal. Colonoscopy did not show any abnormalities. The patient does not have any gastrointestinal bleeding anymore. She is on IV Protonix, we will continue. She is on the clear liquids per GI recommendation, we will continue that. 2. Dysuria. We will check urinalysis and urine culture to rule out infection. 3. History of atrial fibrillation with ventricular rate controlled. 4. Hyperlipidemia. 5. Hypertension. Blood pressure medications; Coreg, amlodipine, and spironolactone on hold since her blood pressure is still running on the lower side. 6. Normocytic anemia secondary to gastrointestinal blood loss. She was transfused with additional unit of packed red blood cells yesterday, so in total, she had 3 and her hemoglobin level is up to 9.7 today. GI on-call, we will make decision about advancing her diet. Job ID: [id number]
[2019-03-03 17:14] LABS: Bacteria/HPF 3+ HPF (None Seen); Bilirubin Negative (Negative); Blood, Urine 2+ (Negative); Clarity Extra Turbid (Clear); Glucose, Urine (Dipstick) Normal (Negative); Leukocyte 500 Leu/uL (Negative); Nitrite Negative (Negative); Protein, Urine (Dipstick) 50 mg/dL (Neg-Trace); RBC/HPF Greater than 50 HPF (0-3); Urobilinogen 3 mg/dL (Less than 2); WBC/HPF Greater than 50 HPF (0-3)
[2019-03-03 17:26] LABS: Urine Culture Reflex No No
[2019-03-03] MEDS: Temazepam 15 MG CAP PO SCH (21:27)
--- NOTE | 2019-03-03 21:50 | PRG ---
DATE OF SERVICE: 03/03/2019 SUBJECTIVE: Ms. Davis has had no bleeding. She states she is not getting out of bed yet because she feels weak. She has had a sore bottom from one of the bathrooms. OBJECTIVE: VITAL SIGNS: Temperature 97.8, pulse 82, blood pressure 105/ 55. ABDOMEN: Soft and nontender. She has family at the bedside. LABORATORY DATA: Hemoglobin 9.7, stable, was 8.8 yesterday. ASSESSMENT: Gastrointestinal bleed secondary to arteriovenous malformation and anticoagulation status post therapy. RECOMMENDATIONS: She needs to get up and out of bed with physical therapy, so she can go home in a couple of days. She does not want to go to rehab as she has who is ill at home. PPI can be changed to p.o. Job ID: [id number]
[2019-03-04 05:16] LABS: Hemoglobin 8.2 g/dL (12.0-16.0)
[2019-03-04] MEDS: Escitalopram Oxalate 10 mg Tablet PO SCH (09:55)
[2019-03-04] MEDS ORDERED: Carvedilol 3.125 MG TAB PO SCH (10:45)
[2019-03-04] MEDS ORDERED: Ciprofloxacin 500 MG TAB PO SCH ×2 (10:45→11:00)
--- NOTE | 2019-03-04 10:47 | PRG ---
DATE OF SERVICE: 03/04/2019 SUBJECTIVE: The patient was seen and examined at the bedside. She is still quite weak and had some nausea. She did some physical therapy. She did not vomit. She does not have more rectal bleeding. OBJECTIVE: VITAL SIGNS: Blood pressure is 120/81, pulse is 111, temperature is 99, respiratory rate is 16, and O2 saturation is 94 on room air. GENERAL: She looks tired. SKIN: Palish. HEENT: Conjunctivae palish. Oral mucosa is moist. NECK: Supple. LUNGS: Clear. HEART: S1 and S2. Tachycardic. No S3. No S4. ABDOMEN: Soft, nontender, and nondistended. Bowel sounds are present. No organomegaly. EXTREMITIES: No clubbing, cyanosis, or edema. NEUROLOGIC: She is alert and oriented x4. There is no any motor or sensory deficits present. Cranial nerves are intact. LABORATORY DATA: Labs showed hemoglobin of 8.2 and hematocrit 23.5. Urinalysis showed extra turbid clarity of urine, 50 of protein, trace of ketones, 2+ blood, 3 urobilinogen, leukocyte esterase 500, rbc's greater than 50, wbc's greater than 50, squamous cells 11 to 20, and 3+ bacteria. Urine culture is pending. IMPRESSION: 1. Gastrointestinal bleeding secondary to arteriovenous malformation and anticoagulation status post therapy. 2. Most likely urinary tract infection. We will start her on fluoroquinolones p.o. 3. History of atrial fibrillation with ventricular rate controlled. 4. Hyperlipidemia. 5. Hypertension. 6. Normocytic anemia secondary to gastrointestinal blood loss. PLAN: Plan is to continue her PT. Continue follow up on her general status. She is still weak. We will check her hemoglobin and hematocrit tomorrow morning. I will start on carvedilol smaller dose 3.125 twice a day since she is tachycardic and her atrial fibrillation is showing with some tachycardia. Her low blood pressure does not allow me to start her on full regimen she is on at home, which include spironolactone, carvedilol at 6.25 mg twice a day, and amlodipine 2.5 mg. She should be able to go home in the next day or two. In the meantime, we will start her on Cipro for her possible UTI and we should get the culture of her urine preliminary report today. Job ID: [id number]
[2019-03-04] MEDS ORDERED: Carvedilol 6.25 MG TAB PO SCH (11:00)
[2019-03-04] MEDS ORDERED: Iron, Sodium Ferric Gluconate 250 MG in Sodium Chloride 0.9% 100 ML IVPB SCH (18:00)
--- NOTE | 2019-03-04 18:00 | PRG ---
DATE OF SERVICE: 03/04/2019 SUBJECTIVE: Ms. Davis feels well. She does have bottom. She is getting some cream placed on that. She has urinary tract infection. She has a little urinary incontinence. She did get up with physical therapy today once for walking and once in the chair. She still feels weak. OBJECTIVE: VITAL SIGNS: Temperature max 99, pulse 90, and blood pressure 103/54. LUNGS: Clear. HEART: Regular rate and rhythm. ABDOMEN: Soft and nontender. LABORATORY DATA: Hemoglobin is 8.2, profile normal. Urinalysis showed red blood cells and bacteria, but also a lot of squamous cells, possibly contaminant. No urine culture was obtained. ASSESSMENT: 1. Gastrointestinal bleed, secondary to arteriovenous malformation. It was clipped on this most recent endoscopy. 2. Anemia, symptomatic. We will give her some IV iron to help out. 3. Urine tract infection, suspected on Cipro, although urine is quite contaminated. 4. Really fairly weak of which she will get along better with getting some IV iron. There have been no signs of bleeding. At this point in time, recommend daily PPI. She can restart her anticoagulant in 1 week. If any further signs of bleeding, please do not hesitate to reconsult GI Service. Dr. Gibson will be on-call this weekend. Job ID: [id number]
[2019-03-04] MEDS: Temazepam 15 MG CAP PO SCH (20:24)
[2019-03-04] MEDS: Ciprofloxacin 500 MG TAB PO SCH (20:25)
[2019-03-04] MEDS: Carvedilol 3.125 MG TAB PO SCH (20:25)
[2019-03-05] MEDS: Ciprofloxacin 500 MG TAB PO SCH ×2 (05:18→20:40)
[2019-03-05] MEDS: Carvedilol 3.125 MG TAB PO SCH ×2 (08:32→20:40)
[2019-03-05] MEDS: Escitalopram Oxalate 10 mg Tablet PO SCH (08:32)
[2019-03-05 09:56] LABS: Hemoglobin 8.4 g/dL (12.0-16.0)
--- NOTE | 2019-03-05 14:52 | PRG ---
DATE OF SERVICE: 03/05/2019 SUBJECTIVE: The patient is seen and examined at the bedside. She did some walking today, but after she received Coreg, her blood pressure dropped to 90s and she required Trendelenburg position placement, but she recovered quickly and she says that she is feeling weak and not very steady when she walks. OBJECTIVE: VITAL SIGNS: Blood pressure is 105/77, pulse is 85, temperature is 98.4, respirations 16, and O2 saturation is 98% on room air. HEENT: Head is atraumatic and normocephalic. Eyes are PERRLA. Sclerae are nonicteric. Conjunctiva palish. Oral mucosa is moist. NECK: Supple. No lymphadenopathy. LUNGS: Clear. HEART: S1 and S2. Irregularly irregular. No S3. No S4. ABDOMEN: Soft and nontender. EXTREMITIES: No clubbing, cyanosis, or edema. NEUROLOGIC: Intact. LABORATORY DATA: Labs showed hemoglobin of 8.4, hematocrit 24.7. Microbiology, stool culture negative that is from 03/01. IMPRESSION: 1. 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 GI recommends to restart her anticoagulation in 1 week. 2. Most likely urinary tract infection, started on Cipro. 3. Atrial fibrillation, controlled ventricular rate. She started on her home medications, which is Coreg. 4. Hypotension, most likely she is still volume depleted and effect of smaller dosed than usual of Coreg made her hypotensive. 5. Hyperlipidemia. 6. Hypertension per history. 7. Normocytic anemia secondary to gastrointestinal blood loss. DISCUSSION: The patient will stay in the hospital for further observation and more physical therapy. Continue current regimen. She received IV iron one dose, but she is still unsteady. I am going to cut back on her Coreg dose to half tablet, which is 3.125 mg twice daily since she gets tachycardic when she is not on any medications and we will check her hemoglobin tomorrow morning and most likely, she will be released tomorrow. Job ID: [id number]
[2019-03-05] MEDS: Temazepam 15 MG CAP PO SCH (20:40)
[2019-03-06] MEDS: Ciprofloxacin 500 MG TAB PO SCH ×2 (05:34→21:40)
[2019-03-06 05:38] LABS: Hemoglobin 7.8 g/dL (12.0-16.0)
[2019-03-06] MEDS: Escitalopram Oxalate 10 mg Tablet PO SCH (08:55)
[2019-03-06] MEDS: Carvedilol 3.125 MG TAB PO SCH ×2 (08:56→21:40)
[2019-03-06 12:27] LABS: Hemoglobin 7.9 g/dL (12.0-16.0)
--- NOTE | 2019-03-06 16:18 | DIS ---
DATE OF ADMISSION: 03/01/2019 DATE OF DISCHARGE: 03/06/2019 PRIMARY CARE PROVIDER: Carri Maguire MD DISCHARGE DIAGNOSES: 1. Anemia of acute blood loss. 2. 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 3. Urinary tract infection. 4. Hypotension. CONDITION OF PATIENT ON THE DAY OF DISCHARGE: Stable. I assessed Ms. Davis on the day of discharge. She denies any chest pain or shortness of breath. Vital signs are stable. S1 and S2 are heard, irregular. Lungs are clear to auscultation bilaterally. DISCHARGE MEDICATIONS: 1. She has been advised to restart apixaban in 1 week's time. 2. Her Coreg dose has been decreased to 1.56 mg 2 times a day. 3. Amlodipine has been discontinued secondary to hypotension. The remainder of her discharge medications include: 1. Spironolactone 25 mg every other day. 2. Atorvastatin 80 mg daily. 3. Vitamin D3 5000 units daily. 4. Colestipol 1 g two times a day. 5. Lexapro 10 mg daily. 6. Estradiol 0.5 mg daily. 7. Ezetimibe 10 mg daily. 8. Vascepa 2 g two times a day. 9. Temazepam 15 mg at bedtime. 10. Protonix 40 mg two times a day. CONSULTATIONS DURING THIS HOSPITALIZATION: Gastroenterology, Dr. Granda. HOSPITAL COURSE: Ms. Davis is a pleasant 78-year-old lady, who was admitted to [facility] on March 01, 2019, for GI bleed. Please refer to Dr. Lee's history and physical note dated March 01, 2019, for further details. She was seen by Gastroenterology Service. She received packed RBC transfusion. She underwent EGD colonoscopy on March 02, 2019. She was found to have a 2 to 3 mm ulcerated region in the second portion consistent with previously treated AV malformation, showing adherent clot indicating high-risk stigmata bleeding, status post hemoclip placement x1. She had fair to poor colonic preparation within the cecum and ascending colon interfering with visualization, but adequate for evaluation of gross mucosal lesions or active bleeding. She had normal terminal ileum without any evidence of active/recent bleeding. She had mild sigmoid diverticulosis. Gastroenterology Service recommended increasing her Protonix to 40 mg 2 times a day. The patient's hemoglobin continued to be stable. She was asymptomatic. She did have low blood pressures. Therefore, her Coreg dose was decreased to 1.56 mg 2 times a day. It was not completely discontinued because when she is off Coreg, her heart rate was trending up. She indicated that she would like to discuss with her box blank machine feeder, if she actually needs to be on apixaban. As mentioned, Gastroenterology Service recommended that she resume it after 1 week's time. Many thanks for allowing me to participate in your patient's care. Please feel free to contact me with any questions or concerns. On the day of discharge, she has hemoglobin 7.9 and hematocrit 23.3. DISCHARGE DESTINATION: Home. TIME SPENT: Total amount of time spent coordinating this discharge: 32 minutes. Job ID: [id number]
[2019-03-06] MEDS ORDERED: Sodium Chloride 0.9% 500 ML IV SCH (16:30)
--- NOTE | 2019-03-06 18:26 | PDOC.PN ---
- Subjective Encounter Start Date: 03/06/19 Encounter Start Time: 18:24 Pt seen for followup re:GI bleed. Says she feels better. - Objective Resuscitation Status - Order Detail: 03/01/19 05:52 Resuscitation Status Routine Resuscitation Status: FULL: Full Resuscitation MAR Reviewed: Yes Vital Signs & Weight: Vital Signs (12 hours) Temp Pulse Resp BP Pulse Ox 03/06/19 17:25 98 F 131 H 24 H 128/62 92 L 03/06/19 15:26 99.4 F 95 16 121/54 L 97 03/06/19 11:37 99 F 83 16 98/51 L 95 03/06/19 08:00 93 L 03/06/19 07:40 98.1 F 87 16 127/58 L 93 L Weight Weight 104 lb I&O: 03/05/19 03/06/19 03/07/19 06:59 06:59 06:59 Intake Total 640 1290 540 Output Total 1 Balance 640 1289 540 Result Diagrams: 03/06/19 12:03 03/01/19 01:39 EKG Reviewed by me: Yes (Tele: enedina blank) Phys Exam - Physical Examination Constitutional: NAD HEENT: moist MMs Neck: supple Respiratory: clear to auscultation bilateral Cardiovascular: irregular Gastrointestinal: soft Neurological: moves all 4 limbs Psychiatric: normal affect Dx/Plan (1) GI bleed Code(s): K92.2 - GASTROINTESTINAL HEMORRHAGE, UNSPECIFIED Status: Acute Comment: s/p EGD, continue protonix 40 mg PO BID (2) Anemia due to acute blood loss Code(s): D62 - ACUTE POSTHEMORRHAGIC ANEMIA Status: Acute Comment: hemoglobin stable (3) Chronic atrial fibrillation Code(s): I48.2 - CHRONIC ATRIAL FIBRILLATION Status: Chronic Comment: apixaban on hold, pt wants to talk to cardiology service re: resumption - Plan * . Pt had chills after receiving normal saline bolus, had low grade fevers earlier , will hold discharge and observe overnight. Review of Systems - Review of Systems Cardiovascular: negative: chest pain, palpitations, orthopnea, paroxysmal nocturnal dyspnea, edema, light headedness Gastrointestinal: negative: Nausea, Vomiting, Abdominal Pain, Diarrhea, Constipation, Melena, Hematochezia - Medications/Allergies Allergies/Adverse Reactions: Allergies Allergy/AdvReac Type Severity Reaction Status Date / Time diphenhydramine Allergy Verified 02/19/19 23:42 [From Benadryl] Iodine and Iodide Containing Allergy Verified 02/19/19 23:42 Produc pseudoephedrine HCl Allergy Verified 02/19/19 21:23 [From Sudafed] zolpidem [From Ambien] Allergy Verified 02/19/19 21:23 Medications: Current Medications Acetaminophen (Tylenol) 650 mg PO Q4H PRN PRN Reason: Headache/Fever/Mild Pain (1-3) Last Admin: 03/04/19 09:55 Dose: 650 mg Carvedilol (Coreg) 1.56 mg PO BID [facility] Last Admin: 03/06/19 08:56 Dose: 1.56 mg Ciprofloxacin (Cipro) 500 mg PO 599,1999 [facility] Last Admin: 03/06/19 05:34 Dose: 500 mg Escitalopram Oxalate (Lexapro) 10 mg PO DAILY [facility] Last Admin: 03/06/19 08:55 Dose: 10 mg Pantoprazole Sodium (Protonix) 40 mg PO DAILY [facility] Last Admin: 03/06/19 08:55 Dose: 40 mg Temazepam (Restoril) 15 mg PO [facility] Last Admin: 03/05/19 20:40 Dose: 15 mg
--- NOTE | 2019-03-06 18:29 | RAD ---
Exam: Chest one view HISTORY:Evaluate for pneumonia. Comparison: 04/05/2014 FINDINGS: Cardiac silhouette: Mild cardiomegaly Aorta: Atherosclerosis of the aortic knob Pulmonary vessels: Normal Costophrenic angles: Clear LUNGS: No masses or consolidation. Chronic changes predominantly the lung bases are noted. Pneumothorax: None Osseous abnormalities: None IMPRESSION: 1. Atherosclerosis. 2. Mild cardiomegaly without evidence of congestive heart failure
[2019-03-06] MEDS: Temazepam 15 MG CAP PO SCH (21:41)
[2019-03-07] MEDS: Ciprofloxacin 500 MG TAB PO SCH (05:55)
[2019-03-07 07:46] VITALS: TEMP 98.7
[2019-03-07] MEDS: Carvedilol 3.125 MG TAB PO SCH (08:38)
[2019-03-07] MEDS: Escitalopram Oxalate 10 mg Tablet PO SCH (08:39)
[2019-03-07] MEDS ORDERED: Carvedilol 3.125 MG TAB PO SCH ×2 (10:00→21:00)
--- NOTE | 2019-03-07 10:26 | CON ---
DATE OF CONSULTATION: 03/07/2019 REASON FOR CONSULTATION: Chronic atrial fibrillation, recurrent GI bleeding. HISTORY OF PRESENT ILLNESS: Ms. Davis is a delightful 78-year-old woman. The patient was recently hospitalized with gastrointestinal bleeding. At that time, she was taking Eliquis 5 mg twice a day orally. That was the appropriate dose based on the current criteria and that she was only 104 pounds, she is 78 years of age, and her creatinine was normal. However, in view of the major bleeding, we elected to reduce the Eliquis dose to 2.5 mg twice a day. Despite that, she had severe gastrointestinal bleeding again, required further cautery for arteriovenous malformation. The patient does have chronic atrial fibrillation. She has mild vascular disease. She underwent cardiac catheterization in the early , found to have a 30% plaque in the coronary. Otherwise, she has been active, doing well. She did have a hypotensive episode yesterday. She received some intravenous fluid. MEDICATIONS: Prior to admission she was taking; 1. Carvedilol 6.25 mg twice a day. 2. Spironolactone 25 mg every other day. 3. Atorvastatin 80 mg a day. 4. Amlodipine 2.5 mg a day. 5. Eliquis, as mentioned, 2.5 mg twice a day. 6. Pantoprazole. 7. Zetia. REVIEW OF SYSTEMS: CONSTITUTIONAL: No significant weight gain or loss. VISION: No changes. HEARING: No changes. PULMONARY: No cough or wheezing. GASTROINTESTINAL: No nausea, vomiting, or diarrhea. SKIN: No rashes. NEUROLOGIC: No unilateral weakness or numbness. PSYCHIATRIC: No unusual depression or anxiety. HEMATOLOGIC: No unusual bruising. GENITOURINARY: No burning with urination. PAST MEDICAL HISTORY: As outlined above, has chronic atrial fibrillation, history of hypertension. FAMILY HISTORY: Negative for heart disease in a young age. PHYSICAL EXAMINATION: GENERAL: This is a delightful 78-year-old woman, 104 pounds, 5 feet 1 inch tall. HEENT: Eyes, sclerae are nonicteric. Mouth, mucous membranes moist. NECK: Supple. No lymphadenopathy. LUNGS: Clear. No wheezing, rales, or rhonchi. CARDIAC: Irregularly irregular. No murmur, rub, or gallop. ABDOMEN: Soft and nontender. EXTREMITIES: Warm and dry. No clubbing or cyanosis. There is no edema. DIAGNOSTIC STUDIES: Reviewing the records, the patient did have two different procedures by the cop examiner. On 02/20/2019, Dr. White found a small erosion in the GE junction, cauterized. Also, had an arteriovenous malformation in the duodenum which was also cauterized. On the procedure 03/02/[address] Granda, he found active bleeding in the colon and mucosal lesions. The bleeding has fortunately stabilized. ASSESSMENT: 1. Chronic atrial fibrillation. CHADS-VASc of 5 based on age, gender, hypertension, and vascular disease. 2. Recurrent gastrointestinal bleeding, even despite reduced dose of Eliquis. 3. Hypertensive. Relatively low blood pressure currently. PLAN: 1. Stop amlodipine. 2. Resume carvedilol. 3. Follow up in the office. I have discussed with the patient she may be a candidate for a left atrial appendage exclusion device such as a Watchman or Amulet. Discussed with her that generally this is done under local anesthesia with transesophageal echo guidance, potentially other imaging to be done as well. Discussed that the current routine is to be anticoagulated for 6 weeks following the procedure. She understands risk of embolic stroke is approximately 5% per year and it actually may be higher than that, these are the ones that can be diagnosed. At this point, the patient does not wish to be anticoagulated at the current time, which I think is reasonable. She has had two major GI bleeds. I have asked her to see us in the office in a couple of weeks, so we can arrange for electrophysiologic consultation. Job ID: [id number]
[2019-03-07 12:14] VITALS: BP 108/55
--- NOTE | 2019-03-08 08:35 | DIS ---
DATE OF ADMISSION: 03/01/2019 DATE OF DISCHARGE: 03/07/2019 ADDENDUM: HOSPITAL COURSE: The patient's discharge was held for approximately 24 hours due to consultation with Cardiology Service regarding history of atrial fibrillation and need for anticoagulation in the context of recurrent GI bleeding. Cardiology recommending discontinuation of anticoagulation due to 2 major GI bleeds status post cauterization of AV malformation. Given the patient's risk of bleeding versus risk of embolic stroke, the patient has opted for potential left atrial appendage exclusion device such as Watchman or Amulet at a later date. Serial hemoglobin shows stable trend and the patient clinically stable in the last 24 hours. I have examined the patient at the time of discharge and discussed followup instructions. Please see dictated discharge summary on 03/06/2019, for full details. DISCHARGE MEDICATIONS: Coreg 3.125 mg p.o. b.i.d. Job ID: [id number]
[2019-03-08] MEDS ORDERED: Carvedilol 3.125 MG TAB PO SCH (09:37)
== END 2019-03-07 15:07 | disposition home or self-care (01) | DRG 378 ==
LOC: ERS 00:51 → 2SE 03:50
PROVIDERS: ADMIT Internal Medicine; ATTEND Internal Medicine
PROC: 0W3P8ZZ Control Bleeding in Gastrointestinal Tract, Via Natural or Artificial Opening Endoscopic (ICD-10-PCS; principal; 2019-03-02)
PROC: 0DJD8ZZ Inspection of Lower Intestinal Tract, Via Natural or Artificial Opening Endoscopic (ICD-10-PCS; 2019-03-02)
PROC: 30233N1 Transfusion of Nonautologous Red Blood Cells into Peripheral Vein, Percutaneous Approach (ICD-10-PCS; 2019-03-02)
DX: K55.21 Angiodysplasia of colon with hemorrhage (principal); D62 Acute posthemorrhagic anemia; N39.0 Urinary tract infection, site not specified; I48.91 Unspecified atrial fibrillation; I10 Essential (primary) hypertension; E78.5 Hyperlipidemia, unspecified; K57.30 Diverticulosis of large intestine without perforation or abscess without bleeding; T45.515A Adverse effect of anticoagulants, initial encounter; I95.9 Hypotension, unspecified; K26.9 Duodenal ulcer, unspecified as acute or chronic, without hemorrhage or perforation; Z79.01 Long term (current) use of anticoagulants; Z91.041 Radiographic dye allergy status; Z88.8 Allergy status to other drugs, medicaments and biological substances
CPT/HCPCS: 36415; 36416; 36430; 71045; 80053; 81001; 82274; 85014; 85018; 85025; 86850; 86900; 86901; C9113; J2405; J2704; J2916; J3490; P9016

== ENCOUNTER 2019-06-07 10:41 | Outpatient (CLI) | payer MEDICARE, BC ==
[2019-06-07 11:58] LABS: Hemoglobin 12.7 g/dL (12.0-16.0); Mean Corpuscular HGB CONC 33.4 g/dL (32.0-36.0); Mean Corpuscular Volume 92.8 fL (78.0-98.0); Mean Platelet Volume 7.7 fL (7.4-10.4); Platelet Count 219 thou/uL (130-400); RBC Distribution Width 14.7 % (11.5-14.5); White Blood Cell (WBC) Count 8.2 thou/uL (4.8-10.8)
[2019-06-07 12:27] LABS: Anion Gap 12 mmol/L (10-20); BUN (Urea Nitrogen) 17 mg/dL (9.8-20.1); Calc. Creatinine Clearance 0 mL/min (70-130); Calcium 9.3 mg/dL (7.8-10.44); Carbon Dioxide 29 mmol/L (23-31); Chloride 105 mmol/L (98-107); Estimated GFR-MDRD 54; Glucose 74 mg/dL (83-110); Potassium 4.5 mmol/L (3.5-5.1); Sodium 141 mmol/L (136-145)
--- NOTE | 2019-06-09 23:11 | EKG ---
Test Reason : Blood Pressure : / mmHG Vent. Rate : 086 BPM Atrial Rate : 084 BPM P-R Int : 000 ms QRS Dur : 082 ms QT Int : 386 ms P-R-T Axes : 000 076 074 degrees QTc Int : 461 ms Atrial fibrillation with premature ventricular or aberrantly conducted complexes Anterior infarct , age undetermined Abnormal ECG When compared with ECG of 22-AUG-2018 09:50, Questionable change in QRS axis Nonspecific T wave abnormality no longer evident in Inferior leads Confirmed by Dionne MARTINEZ ([id number]) on 06/09/2019 11:11:20 PM Referred By: ELISHA Confirmed By:Dionne MARTINEZ
== END 2019-06-07 10:42 | disposition home or self-care (01) ==
LOC: LABBT 10:41
PROVIDERS: ATTEND Internal Medicine Cardiovascular Disease
DX: Z01.818 Encounter for other preprocedural examination (principal); I48.91 Unspecified atrial fibrillation
CPT/HCPCS: 80048; 85027; 93005; 93010

== ENCOUNTER 2019-06-08 05:56 | Day surgery (SDC) | payer MEDICARE, BC ==
[2019-06-07 11:07] VITALS: BMI 19.3
[2019-06-08] MEDS ORDERED: Ketamine 50 MG/ML (10ML VIAL) ONE (07:10)
[2019-06-08] MEDS ORDERED: Propofol 500 MG/50 ML VIAL ONE (07:10)
[2019-06-08] MEDS ORDERED: PROPOFOL 20 ML ONE (07:24)
[2019-06-08 08:01] LABS: INR-International Normal Ratio 1.8; PTT 32.4 SEC (22.9-36.1); Prothrombin Time 21.2 SEC (12.0-14.7)
--- NOTE | 2019-06-08 11:03 | OP ---
DATE OF PROCEDURE: 06/08/2019 PROCEDURE PERFORMED: Transesophageal echocardiogram. INDICATION: A 79-year-old woman with paroxysmal atrial fibrillation. DESCRIPTION OF PROCEDURE: The patient was taken to the PACU. The patient was sedated by Anesthesiology. Transesophageal probe was placed to the distal esophagus and stomach echocardiograms were obtained. The transesophageal probe was removed. FINDINGS: 1. Normal left ventricular systolic function. 2. Biatrial enlargement. 3. Mild mitral regurgitation. 4. Mild tricuspid regurgitation. 5. Mild aortic regurgitation. 6. Watchman device is well positioned in the left atrial appendage with no significant leak noted. 7. Atherosclerotic debris in the descending aorta. IMPRESSION: Watchman device well positioned in the left atrial appendage with no significant leak noted. Job ID: [id number]
== END 2019-06-08 10:33 | disposition home or self-care (01) ==
LOC: CCL 05:56
PROVIDERS: ATTEND Internal Medicine Cardiovascular Disease
PROC: B24BZZ4 Ultrasonography of Heart with Aorta, Transesophageal (ICD-10-PCS; principal; 2019-06-08)
DX: I48.0 Paroxysmal atrial fibrillation (principal); I08.3 Combined rheumatic disorders of mitral, aortic and tricuspid valves; Z79.01 Long term (current) use of anticoagulants; Z79.899 Other long term (current) drug therapy; Z88.8 Allergy status to other drugs, medicaments and biological substances; Z91.041 Radiographic dye allergy status; Z95.818 Presence of other cardiac implants and grafts
CPT/HCPCS: 85610; 85730; 93312; J2704

== ENCOUNTER 2019-07-07 10:30 | Observation (INO) | payer MEDICARE, BC ==
--- NOTE | 2019-07-07 11:12 | RAD ---
EXAM: Chest one view: HISTORY: Pneumonia COMPARISON: 03/06/2019 FINDINGS: Stable old granulomatous disease. Stable lumbothoracic scoliosis. Heart size: Within normal limits. Lungs: Clear of acute process. No evidence for confluent pneumonia, pleural effusion, acute edema, or pneumothorax, or other signifi cant acute process. IMPRESSION: No significant acute intrathoracic disease. Stable chronic changes. Atherosclerosis of the aorta.
[2019-07-07] MEDS ORDERED: Diltiazem 125 MG/25 ML ONE (11:20)
[2019-07-07] MEDS ORDERED: Aspirin Chewable 81 MG TAB ONE (11:21)
[2019-07-07 11:27] LABS: ALT (SGPT) 13 U/L (8-55); AST (SGOT) 22 U/L (5-34); Albumin 4.7 g/dL (3.4-4.8); Alkaline Phosphatase 124 U/L (40-110); Anion Gap 19 mmol/L (10-20); BUN (Urea Nitrogen) 20 mg/dL (9.8-20.1); Calc. Creatinine Clearance 0 mL/min (70-130); Calcium 9.6 mg/dL (7.8-10.44); Carbon Dioxide 25 mmol/L (23-31); Chloride 102 mmol/L (98-107); Estimated GFR-MDRD 54; Globulin 2.8 g/dL (2.4-3.5); Glucose 91 mg/dL (83-110); Potassium 3.6 mmol/L (3.5-5.1); Protein, Total 7.5 g/dL (6.0-8.3); Sodium 142 mmol/L (136-145)
[2019-07-07] MEDS ORDERED: Digoxin 0.5 MG/2 ML AMP ONE ×2 (11:33→13:29)
[2019-07-07 12:14] LABS: #Eosinphils 0.1 thou/uL (0.0-0.7); #Lymphocytes 1.8 thou/uL (1.20-3.40); #Monocytes 0.4 thou/uL (0.11-0.59); #Neutrophils 5.4 thou/uL (1.40-6.50); %Basophils 0.3 % (0.0-1.0); %Eosinophils 0.7 % (0.0-10.0); %Lymphocytes 23.4 % (21.0-51.0); %Monocytes 5.6 % (0.0-10.0); Hemoglobin 12.7 g/dL (12.0-16.0); Mean Corpuscular HGB CONC 33.8 g/dL (32.0-36.0); Mean Corpuscular Hemoglobin 30.4 pg (27.0-31.0); Mean Corpuscular Volume 89.8 fL (78.0-98.0); Mean Platelet Volume 8.1 fL (7.4-10.4); Platelet Count 187 thou/uL (130-400); RBC Distribution Width 14.9 % (11.5-14.5); Red Blood Cell (RBC) Count 4.18 mill/uL (4.20-5.40); White Blood Cell (WBC) Count 7.7 thou/uL (4.8-10.8)
[2019-07-07 12:56] LABS: Digoxin 10.11 ng/mL (0.8-2.0)
[2019-07-07] MEDS ORDERED: Calcium Carbonate 500 MG ChewTAB PO PRN (14:00)
[2019-07-07] MEDS ORDERED: Senokot S 8.6-50 MG TAB PO PRN (14:00)
[2019-07-07] MEDS ORDERED: Acetaminophen 325 MG TAB PO PRN (14:00)
[2019-07-07] MEDS ORDERED: Nitroglycerin 0.4 MG TAB (25 Tab Bottle) PO PRN (14:01)
[2019-07-07] MEDS ORDERED: Spironolactone 25 MG TAB PO SCH (14:15)
[2019-07-07] MEDS ORDERED: Bupropion 150 MG XL TAB PO SCH (14:15)
--- NOTE | 2019-07-07 14:54 | HP ---
PRIMARY CARE PHYSICIAN: Dr. Carri Maguire. PRIMARY STATIONARY BOILER FIREMAN: Dr. Fitch. CHIEF COMPLAINT: Generalized weakness along with lightheadedness and dizziness of 1 day duration. HISTORY OF PRESENT ILLNESS: The patient is a 79-year-old female with paroxysmal atrial fibrillation, status post Watchman device; coronary artery disease; and hypertension; presented to Dr. Fitch's office with above complaints. Her workup was consistent with atrial fibrillation with rapid ventricular response. She was sent to the emergency room emergency room for evaluation. Over the last 1 to 2 days, the patient has been feeling generally weak and fatigued. She gets lightheaded and dizzy. No vertigo reported. She denies any chest pain, palpitations, or syncope. She is compliant with all of her medications including carvedilol. She had a Watchman device placed earlier this year. She gets short of breath on [id number] exertion. No leg swelling or orthopnea reported. She denies recent immobilization or travel. No fever or chills reported. In the emergency room, her initial vital signs showed temperature 99.1, respirations of 15 with a heart rate in 130s, blood pressure of 189/132 with O2 saturation 95% on room air. Per Dr. Fitch's recommendation, she received 0.25 mg of digoxin. She also received aspirin and IV fluids in the emergency room. PAST MEDICAL HISTORY: 1. Paroxysmal atrial fibrillation. 2. Coronary artery disease. 3. Hypertension. 4. Hyperlipidemia. 5. History of GI bleeding. PAST SURGICAL HISTORY: 1. Colonoscopy. 2. Watchman device earlier this year. 3. Appendectomy. 4. Hysterectomy. 5. Bilateral salpingo-oophorectomy. ALLERGIES: THE PATIENT IS ALLERGIC TO IODINE, BENADRYL, AND PSEUDOEPHEDRINE. CURRENT HOME MEDICATIONS: Verified with the medication list provided by the patient. 1. Aldactone 25 mg every other day. 2. Amlodipine 2.5 mg daily. 3. Aspirin 81 mg daily. 4. Lipitor 80 mg daily. 5. Wellbutrin 150 mg daily. 6. Carvedilol 6.25 mg daily. 7. Vitamin D3 5000 units daily. 8. Plavix 75 mg daily. 9. Colestipol 1 g b.i.d. 10. Lexapro 10 mg daily. 11. Estradiol 0.5 mg daily. 12. Zetia 10 mg daily. 13. Vascepa 1 g b.i.d. 14. Temazepam 15 mg at bedtime. SOCIAL HISTORY: The patient currently lives at home. She denies current use of smoking, alcohol, or drug use. She makes her own decision with the help of her . FAMILY HISTORY: Mother with malignancy of unknown type. REVIEW OF SYSTEMS: All other review of systems were reviewed and were found negative. PHYSICAL EXAMINATION: VITAL SIGNS: As discussed above. GENERAL: A 79-year-old female, somewhat anxious appearing. Denies any chest pain. HEENT: Head, atraumatic and normocephalic. Sclerae anicteric. Moist mucous membranes. No oral lesion. NECK: Supple. No JVD appreciated. No carotid bruit. LUNGS: Clear to auscultation bilaterally with scattered rhonchi. No rales. No accessory muscle use. HEART: S1 and S2 present. Irregularly irregular. No rubs or gallops. Rapid ventricular rate. ABDOMEN: Soft, nontender. Bowel sounds present. EXTREMITIES: No edema or calf tenderness. NEUROLOGIC: Grossly nonfocal. Moves all 4 extremities. PSYCHIATRY: Alert, awake, and oriented x3. SKIN: Warm and dry. LYMPH NODES: No palpable lymph nodes in the neck. PERIPHERAL/VASCULAR: Radial pulses are palpable bilaterally. MUSCULOSKELETAL: No joint swelling tenderness. LABORATORY FINDINGS: WBC 7.7 with hemoglobin 12.7, hematocrit 37.5, and platelets 187. Chemistry showed sodium 142, potassium 3.6, chloride 102, bicarb 25, BUN 20, creatinine 0.9. Total bilirubin 2.0. Troponin was negative. EKG by my review as discussed above. Chest x-ray by my review was negative for infiltrate or edema. IMPRESSION: 1. Atrial fibrillation with rapid ventricular response. 2. Coronary artery disease. 3. Chronic kidney disease, stage 3. 4. Hypertension. 5. Hyperlipidemia. 6. Iodine allergy. 7. Abnormal LFTs of unclear etiology. The patient has a history of abnormal LFTs intermittently in the past. 8. Status post Watchman device earlier this year. 9. History of gastrointestinal bleeding. 10. Anxiety. 11. Chronic anemia. PLAN: The patient will be monitored as a 23-hour observation. Per Dr. Fitch's recommendation, she has been started on digoxin 0.25 mg x1. The dose will be repeated after 1 hour. Please note that the patient is not on digoxin at home. Carvedilol will be continued. We will also continue amlodipine and other home medications. She is also on aspirin and Plavix. We will recheck LFTs in a.m. Magnesium level is pending at this time. Serial troponins have been ordered. The first troponin was negative. DISPOSITION: Probably in 24 hours if okay with Cardiology. Job ID: [id number]
[2019-07-07 15:03] LABS: Troponin I Less than 0.010 ng/mL (< 0.028)
[2019-07-07] MEDS ORDERED: Magnesium Sulfate 4 GM in Sodium Chloride 0.9% 250 ML 250 ML IVPB SCH (15:15)
[2019-07-07] MEDS: Digoxin 0.5 MG/2 ML AMP SLOW IVP SCH ×2 (15:34→15:58)
[2019-07-07 15:39] VITALS: BMI 19.2
[2019-07-07] MEDS: Carvedilol 3.125 MG TAB PO SCH (15:58)
[2019-07-07] MEDS ORDERED: Non-Formulary Item 1 EACH (Icosapent Ethyl [Vascepa] 1 GM) PO SCH (17:00)
[2019-07-07] MEDS: Famotidine 20 MG TAB PO SCH (20:35)
[2019-07-07] MEDS ORDERED: Temazepam 15 MG CAP PO SCH (21:00)
[2019-07-08 05:09] LABS: ALT (SGPT) 11 U/L (8-55); AST (SGOT) 21 U/L (5-34); Albumin 3.9 g/dL (3.4-4.8); Alkaline Phosphatase 107 U/L (40-110); Anion Gap 13 mmol/L (10-20); BUN (Urea Nitrogen) 15 mg/dL (9.8-20.1); Bilirubin, Total 1.3 mg/dL (0.2-1.2); Calc. Creatinine Clearance 43 mL/min (70-130); Calcium 8.7 mg/dL (7.8-10.44); Carbon Dioxide 27 mmol/L (23-31); Chloride 103 mmol/L (98-107); Digoxin 1.42 ng/mL (0.8-2.0); Estimated GFR-MDRD 70; Globulin 2.7 g/dL (2.4-3.5); Glucose 79 mg/dL (83-110); Potassium 3.4 mmol/L (3.5-5.1); Protein, Total 6.6 g/dL (6.0-8.3); Sodium 140 mmol/L (136-145)
[2019-07-08 07:44] VITALS: TEMP 97.6
[2019-07-08] MEDS ORDERED: Bupropion 150 MG XL TAB PO SCH (09:00)
[2019-07-08] MEDS ORDERED: Amlodipine 5 MG TAB PO SCH (09:00)
[2019-07-08] MEDS ORDERED: Estradiol 1 MG TAB PO SCH (09:00)
[2019-07-08] MEDS ORDERED: Clopidogrel Bisulfate 75 MG TAB PO SCH (09:00)
[2019-07-08] MEDS ORDERED: Ezetimibe 10 MG TAB PO SCH (09:00)
[2019-07-08] MEDS ORDERED: Digoxin 0.125 MG TAB PO SCH (09:00)
[2019-07-08] MEDS ORDERED: Potassium Chloride 20 MEQ TAB PO SCH (09:00)
[2019-07-08] MEDS ORDERED: Atorvastatin Calcium 40 MG TAB PO SCH (09:00)
[2019-07-08] MEDS ORDERED: Escitalopram Oxalate 10 mg Tablet PO SCH (09:00)
[2019-07-08] MEDS ORDERED: Aspirin 81 mg Enteric Coated Tablet PO SCH (09:00)
[2019-07-08 09:02] VITALS: BP 127/76
[2019-07-08] MEDS: Carvedilol 3.125 MG TAB PO SCH (09:20)
[2019-07-08] MEDS: Famotidine 20 MG TAB PO SCH (09:20)
--- NOTE | 2019-07-08 09:22 | PRG ---
DATE OF SERVICE: 07/08/2019 SUBJECTIVE: Ms. Davis is feeling much better today. Her tremor has gone. She is breathing better, everything feels better today. OBJECTIVE: VITAL SIGNS: Blood pressure most recently was 162/72, pulse is 60 to 70, it is irregular. LUNGS: Clear. CARDIAC: Irregularly irregular. ABDOMEN: Soft and nontender. ASSESSMENT: 1. Atrial fibrillation, chronic with a rapid rate yesterday, now rate is controlled, in fact on the low side. 2. Hypertension, but somewhat variable. PLAN: 1. Recheck blood pressure. 2. Start digoxin 0.125 mg orally a day starting tomorrow. 3. Follow up with us in a week in the office. 4. Give her a dose of potassium today. 5. Okay to go home. 6. Recent Watchman procedure, is on aspirin and Plavix, not on anticoagulation currently. Job ID: [id number]
--- NOTE | 2019-07-08 22:01 | DIS ---
DATE OF ADMISSION: 07/07/2019 DATE OF DISCHARGE: 07/08/2019 DISCHARGE DISPOSITION: Home. FOLLOWUP: 1. Follow up with primary care physician, Dr. Carri Maguire in 1 week. 2. Follow up with Cardiology, Dr. Fitch as scheduled. The patient was seen and examined on the day of discharge. Denies any new complaints. Basic metabolic profile after 1 week is recommended. Primary care physician advised to follow. DISCHARGE MEDICATIONS: 1. Digoxin 0.125 mg daily. 2. Slow-Mag 64 mg b.i.d. 3. Potassium chloride 10 mEq on Thursday, Thursday, Thursday. INPATIENT INSPECTOR COLD WORKING: Cardiology, Dr. Fitch. DIAGNOSTIC TESTS: Magnesium 1.4, at discharge 2.2. Total bilirubin on admission was 2.0, at discharge 1.3. Troponin was negative. Potassium 3.4. BRIEF HOSPITAL COURSE: The patient is a 79-year-old female with paroxysmal atrial fibrillation status post Watchman device, presented to the emergency room with generalized weakness along with lightheadedness and dizziness from Dr. Fitch's office. A workup was consistent with atrial fibrillation with rapid ventricular response. She received a total of 0.5 mg of digoxin in the emergency room per Dr. Fitch's recommendation. Heart rate is controlled at this time. She will be discharged home on digoxin 0.125 mg daily. Her digoxin level on the day of discharge was 1.42. The patient has been cleared by Cardiology for discharge. FINAL DIAGNOSES: 1. Atrial fibrillation with rapid ventricular response, responded to digoxin. 2. Coronary artery disease. 3. Chronic kidney disease, stage 3. 4. Hypertension. 5. Hyperlipidemia. 6. Hypokalemia. 7. Hypomagnesemia. 8. Iodine allergy. 9. Abnormal LFTs of unclear etiology, improving. 10. Status post Watchman device. 11. History of gastrointestinal bleeding. 12. Anxiety. 13. Chronic anemia. PLAN: Plan of care was discussed with the patient in detail. She stated understanding. Job ID: [id number]
[2019-07-09] MEDS ORDERED: Digoxin 0.125 MG TAB PO SCH (09:00)
== END 2019-07-08 11:04 | disposition home or self-care (01) ==
LOC: ERS 10:30 → 2SW 13:09
PROVIDERS: ADMIT Internal Medicine; ATTEND Internal Medicine
DX: I48.20 Chronic atrial fibrillation, unspecified (principal); I25.10 Atherosclerotic heart disease of native coronary artery without angina pectoris; I12.9 Hypertensive chronic kidney disease with stage 1 through stage 4 chronic kidney disease, or unspecified chronic kidney disease; N18.3 Chronic kidney disease, stage 3 (moderate); E78.5 Hyperlipidemia, unspecified; D64.9 Anemia, unspecified; F41.9 Anxiety disorder, unspecified; E87.6 Hypokalemia; E83.42 Hypomagnesemia; Z86.73 Personal history of transient ischemic attack (TIA), and cerebral infarction without residual deficits; Z88.8 Allergy status to other drugs, medicaments and biological substances; Z91.041 Radiographic dye allergy status; Z95.818 Presence of other cardiac implants and grafts
CPT/HCPCS: 71045; 80053 ×2; 80162 ×2; 83735 ×2; 84484 ×2; 85025; 93005; 96361; 96374; 96375; 96376 ×2; 97139; 99285; G0378 ×3; 36415; J1160; J3475; J7050

== ENCOUNTER 2019-07-12 10:43 | Observation (INO) | payer MEDICARE, BC ==
--- NOTE | 2019-07-12 11:27 | RAD ---
Exam: Chest one view HISTORY:Dyspnea Comparison: 07/07/2019, 03/06/2019 FINDINGS: Cardiac silhouette: Normal Aorta: Atherosclerosis of the aortic knob Pulmonary vessels: Normal Costophrenic angles: Clear LUNGS: No masses or consolidation. Stable calcified granuloma in the right upper lobe Pneumothorax: None Osseous abnormalities: None IMPRESSION: No acute cardiopulmonary process.
[2019-07-12 11:28] LABS: #Basophils 0.1 thou/uL (0.0-0.2); #Eosinphils 0.1 thou/uL (0.0-0.7); #Lymphocytes 2.5 thou/uL (1.20-3.40); #Monocytes 0.7 thou/uL (0.11-0.59); #Neutrophils 8.3 thou/uL (1.40-6.50); %Basophils 0.5 % (0.0-1.0); %Eosinophils 0.7 % (0.0-10.0); %Lymphocytes 21.3 % (21.0-51.0); %Monocytes 5.7 % (0.0-10.0); %Neutrophils 71.8 % (42.0-75.0); Hemoglobin 15.1 g/dL (12.0-16.0); Mean Corpuscular HGB CONC 33.8 g/dL (32.0-36.0); Mean Corpuscular Hemoglobin 30.2 pg (27.0-31.0); Mean Corpuscular Volume 89.4 fL (78.0-98.0); Mean Platelet Volume 7.7 fL (7.4-10.4); Platelet Count 256 thou/uL (130-400); Red Blood Cell (RBC) Count 4.99 mill/uL (4.20-5.40); White Blood Cell (WBC) Count 11.5 thou/uL (4.8-10.8)
[2019-07-12 11:45] LABS: ALT (SGPT) 18 U/L (8-55); AST (SGOT) 27 U/L (5-34); Albumin 4.7 g/dL (3.4-4.8); Alkaline Phosphatase 124 U/L (40-110); Anion Gap 17 mmol/L (10-20); BUN (Urea Nitrogen) 17 mg/dL (9.8-20.1); Bilirubin, Total 1.6 mg/dL (0.2-1.2); Calc. Creatinine Clearance 0 mL/min (70-130); Calcium 10.3 mg/dL (7.8-10.44); Carbon Dioxide 28 mmol/L (23-31); Chloride 100 mmol/L (98-107); Estimated GFR-MDRD 53; Globulin 3.5 g/dL (2.4-3.5); Glucose 78 mg/dL (83-110); Potassium 4.4 mmol/L (3.5-5.1); Protein, Total 8.2 g/dL (6.0-8.3); Sodium 141 mmol/L (136-145)
--- NOTE | 2019-07-12 12:03 | CT ---
Head CT without contrast 07/12/2019: COMPARISON: 08/22/2018 HISTORY: Trembling bilaterally involving arms and neck, headache TECHNIQUE: Axial CT imaging at 5 mm intervals from vertex through skull base without contrast FINDINGS: The partially imaged left maxillary sinus is opacified. There is extensive periventricular, deep, and subcortical white matter hypodensity, evidence of significant stable small vessel disease. No intracranial hemorrhage, midline shift, or mass effect. No ventricular enlargement. IMPRESSION: Stable chronic findings as detailed above. No intracranial hemorrhage.
[2019-07-12 12:55] LABS: Digoxin 1.56 ng/mL (0.8-2.0)
[2019-07-12 13:36] LABS: Bilirubin Negative (Negative); Blood, Urine Negative (Negative); Clarity Clear (Clear); Glucose, Urine (Dipstick) Normal (Negative); Leukocyte 250 Leu/uL (Negative); Nitrite Negative (Negative); Protein, Urine (Dipstick) Negative (Neg-Trace); Squamous Epithelial 0-3 HPF (0-3); Urobilinogen Normal mg/dL (Less than 2)
[2019-07-12 13:40] LABS: Bacteria/HPF 1+ HPF (None Seen)
[2019-07-12] MEDS ORDERED: Ondansetron PF 4 MG/2 ML Vial IVP PRN (15:00)
[2019-07-12] MEDS ORDERED: Ondansetron ODT 4 MG TAB SL PRN (15:00)
[2019-07-12] MEDS ORDERED: Acetaminophen 325 MG TAB PO PRN (15:00)
[2019-07-12 15:07] LABS: Troponin I Less than 0.010 ng/mL (< 0.028)
[2019-07-12 15:36] VITALS: BMI 19.5
[2019-07-12] MEDS ORDERED: Senokot S 8.6-50 MG TAB PO PRN (16:27)
[2019-07-12] MEDS ORDERED: Sodium Chloride 0.9% 1,000 ML IV SCH (16:30)
[2019-07-12 17:59] LABS: Troponin I Less than 0.010 ng/mL (< 0.028)
[2019-07-12] MEDS: Atorvastatin Calcium 40 MG TAB PO SCH (20:38)
[2019-07-12] MEDS: Ezetimibe 10 MG TAB PO SCH (20:38)
[2019-07-12] MEDS: Famotidine 20 MG TAB PO SCH (20:38)
[2019-07-12] MEDS: Temazepam 15 MG CAP PO SCH (20:38)
[2019-07-12] MEDS ORDERED: Magnesium 2 GM/50 ML 2 GM in Premix Bag 1 BAG IVPB SCH (22:00)
--- NOTE | 2019-07-13 00:32 | HP ---
PRIMARY CARE PHYSICIAN: Dr. Maguire. AWNING MAKER: Dr. Fitch. CODE STATUS: The patient is a full code. is the surrogate decision maker. CHIEF COMPLAINT: Trembling associated headache. HISTORY OF PRESENT ILLNESS: Ms. Davis is a 79-year-old female, who reported to the emergency room today with complaints of trembling to bilateral arms, neck x1 week prior to arrival. The patient reports an associated headache and shortness of breath with ambulation, some dizziness. The patient was admitted last week for similar complaints, was discharged on 07/08/2019. The patient reports that she has seen Dr. Maguire and Dr. Fitch since being discharged and reports that she is not feeling any better than she was when she was discharged here on the . Reports generalized weakness. Reports being trembly, dizzy. She does report that Dr. Fitch told her that it would take 2 to 3 weeks to resolve, but is not feeling well and sought evaluation in the emergency room. Past medical history for hypertension, TIA, she had a Watchman placed for atrial fibrillation, has arthritis, IBS. LABORATORY DATA: Pertinent for white blood cell count of 11.5, glucose is 78, total bilirubin 1.6, alkaline phosphatase at 124. Troponins x3 have been negative. Magnesium is 1.5. UA positive for ketones, leukocyte esterase, red blood cells, white blood cells, 1+ bacteria. This has been sent off for culture. Digoxin is 1.56. The patient was found to be in atrial fibrillation with RVR with beats per minute in the 100s and the patient is subsequently admitted to the telemetry observation unit for further management. REVIEW OF SYSTEMS: Reports weakness. Reports trembling, shakiness. Reports some dizziness. Denies any mental status changes, paralysis, headache, paresthesias, sensory changes, dysuria, abdominal pain, nausea, vomiting, constipation, or diarrhea. Does report some shortness of breath. All systems are reviewed and negative unless mentioned in the HPI. PAST MEDICAL HISTORY: Please see HPI. PAST SURGICAL HISTORY: Thoracic spinal surgery, appendectomy, hysterectomy, tonsillectomy, and EGD in 2019. PSYCHIATRIC HISTORY: None. SOCIAL HISTORY: Lives at home with her family. Denies any alcohol or drug use. Has no smoking history. FAMILY HISTORY: Includes cancer. ALLERGIES: AMBIEN, BENADRYL, IODIDES, SUDAFED. HOME MEDICATIONS: 1. Amlodipine 2.5 mg p.o. daily. 2. Aspirin 81 mg p.o. daily. 3. Atorvastatin 80 mg p.o. daily. 4. Wellbutrin XL 150 mg p.o. daily. 5. Coreg 6.25 mg p.o. daily. 6. Vitamin D3 of 5000 units p.o. daily. 7. Plavix 75 mg p.o. daily. 8. Colestipol 1 g p.o. b.i.d. 9. Lexapro 10 mg p.o. daily. 10. Estradiol 0.5 mg p.o. daily. 11. Zetia 10 mg p.o. daily. 12. Vascepa 1 g p.o. b.i.d. 13. Aldactone 25 mg p.o. every 2 days. 14. Temazepam 50 mg p.o. at bedtime. 15. Digoxin 0.125 mg p.o. daily. 16. Slow-Mag mg p.o. b.i.d. 17. Potassium 10 mEq p.o. Thursday, Thursday, Thursday. PHYSICAL EXAMINATION: VITAL SIGNS: Blood pressure 142/88, pulse is 69, respiratory rate 17, temp 98.3, pO2 sats 98% on room air. CONSTITUTIONAL: The patient is ill-appearing, although she is nontoxic appearing as well as alert and oriented to person, place, and time. HEENT: Head is atraumatic and normocephalic. Eyes, pupils are equal, round, and reactive to light. Eyelids are normal to inspection. ENT; mucous membranes are dry. Teeth are normal. NECK: Normal range of motion. Trachea is midline. RESPIRATORY/CHEST: Breath sounds are clear. Chest expansion is equal. CARDIOVASCULAR: Irregular rate, irregularly. Heart sounds are normal. ABDOMEN: Nontender. Bowel sounds are heard. BACK: Normal range of motion. No tenderness. EXTREMITIES: Upper extremities; normal range of motion, motor strength is normal, sensation intact, radial pulses are normal. Lower extremities; normal range of motion, motor strength is normal, pedal pulse is normal, no edema is noted. NEUROLOGICAL: The patient is oriented to person, place, and time. Has a tremor at rest. Cranial nerves 2 through 12 are intact. SKIN: Warm, dry, normal in color. PSYCH: Normal affect. ASSESSMENT AND PLAN: 1. Atrial fibrillation, initially with rapid ventricular response, appears to be rate controlled. We will ask Dr. Fitch to consult and see if he has any other recommendations for us, although he has seen her recently. The patient may need some reassurance. The patient's magnesium level was 1.5. We have ordered an IV piggyback of 2 g. We will recheck in the morning. This may account for some of the muscle tremors she has been having recently. The patient has been on Slow-Mag at home, not really sure at this point if she has been taking. We will restart the digoxin. 2. Hypomagnesemia. Please see #1. 3. Hypertension. We will restart home medications. 4. History of transient ischemic attack and atrial fibrillation. We will restart the Plavix and aspirin. 5. Hyperlipidemia. We will restart home medications. 6. PT and OT have been consulted. The patient may need either physical therapy or inpatient rehab. 7. Gastrointestinal and deep venous thrombosis prophylaxis started. 8. Hospital course dependent on clinical findings. Job ID: [id number]
[2019-07-13 05:14] LABS: #Eosinphils 0.2 thou/uL (0.0-0.7); #Lymphocytes 2.1 thou/uL (1.20-3.40); #Monocytes 0.8 thou/uL (0.11-0.59); #Neutrophils 4.2 thou/uL (1.40-6.50); %Basophils 0.5 % (0.0-1.0); %Eosinophils 2.1 % (0.0-10.0); %Lymphocytes 28.7 % (21.0-51.0); %Monocytes 10.9 % (0.0-10.0); %Neutrophils 57.8 % (42.0-75.0); Mean Corpuscular HGB CONC 33.5 g/dL (32.0-36.0); Mean Corpuscular Hemoglobin 30.2 pg (27.0-31.0); Mean Corpuscular Volume 90.1 fL (78.0-98.0); Mean Platelet Volume 7.7 fL (7.4-10.4); Platelet Count 211 thou/uL (130-400); RBC Distribution Width 14.9 % (11.5-14.5); Red Blood Cell (RBC) Count 4.32 mill/uL (4.20-5.40); White Blood Cell (WBC) Count 7.3 thou/uL (4.8-10.8)
[2019-07-13 05:45] LABS: ALT (SGPT) 14 U/L (8-55); AST (SGOT) 23 U/L (5-34); Albumin 3.7 g/dL (3.4-4.8); Alkaline Phosphatase 97 U/L (40-110); Anion Gap 10 mmol/L (10-20); BUN (Urea Nitrogen) 15 mg/dL (9.8-20.1); Bilirubin, Total 1.2 mg/dL (0.2-1.2); Calc. Creatinine Clearance 38 mL/min (70-130); Calcium 8.9 mg/dL (7.8-10.44); Carbon Dioxide 31 mmol/L (23-31); Chloride 104 mmol/L (98-107); Estimated GFR-MDRD 62; Globulin 2.7 g/dL (2.4-3.5); Glucose 78 mg/dL (83-110); Magnesium 2.2 mg/dL (1.6-2.6); Potassium 3.7 mmol/L (3.5-5.1); Protein, Total 6.4 g/dL (6.0-8.3); Sodium 141 mmol/L (136-145)
[2019-07-13] MEDS: Bupropion 150 MG XL TAB PO SCH ×2 (09:50→12:04)
[2019-07-13] MEDS: Escitalopram Oxalate 10 mg Tablet PO SCH (09:51)
[2019-07-13] MEDS: Clopidogrel Bisulfate 75 MG TAB PO SCH (09:51)
[2019-07-13] MEDS: Digoxin 0.125 MG TAB PO SCH (09:51)
[2019-07-13] MEDS: Amlodipine 5 MG TAB PO SCH (09:51)
[2019-07-13] MEDS: Famotidine 20 MG TAB PO SCH (09:51)
[2019-07-13] MEDS: Estradiol 1 MG TAB PO SCH (09:52)
[2019-07-13] MEDS: Aspirin 81 mg Enteric Coated Tablet PO SCH (09:52)
[2019-07-13] MEDS: Carvedilol 6.25 MG TAB PO SCH (09:52)
--- NOTE | 2019-07-13 14:08 | PRG ---
DATE OF SERVICE: 07/13/2019 SUBJECTIVE: Ms. Davis has been admitted to the hospital with recurrent shaking and tremors. This seems to be at least somewhat correlated with tachycardia. OBJECTIVE: VITAL SIGNS: She has had heart rates of 120 and briefly in the 150 range. Otherwise, her heart rate has been in the 60 to 70 range, atrial fibrillation with controlled rate. LUNGS: Clear. CARDIAC: Irregular. ABDOMEN: Soft and nontender. EXTREMITIES: No edema. ASSESSMENT: 1. Atrial fibrillation with some element of tachycardia, bradycardia. 2. Tremor, uncertain etiology. ? whether some of the antidepressants could be playing a role. She said she was taken off the Wellbutrin recently, but feels much better today. PLAN: 1. We will do a stress test and echocardiogram. 2. Stop Wellbutrin as per Dr. Maguire's initial plan. Job ID: [id number] MTDD
[2019-07-13] MEDS ORDERED: Magnesium 2 GM/50 ML 2 GM in Premix Bag 1 BAG IVPB SCH (15:30)
[2019-07-13] MEDS ORDERED: Acetaminophen 325 MG TAB PO PRN (15:44)
--- NOTE | 2019-07-13 19:31 | PDOC.HOSPP ---
- Subjective Encounter Date: 07/13/19 Encounter Time: 14:30 Subjective: Patient seen and examined for Afib with RVR with Gen weakness. No CP. No tremors. No new complaints. No overnight events - Objective Vital Signs & Weight: Vital Signs (12 hours) Temp Pulse Pulse Pulse Resp BP BP 07/13/19 15:28 97.5 F L 70 16 07/13/19 11:19 97.8 F 74 18 07/13/19 09:52 157/67 H 07/13/19 09:51 72 07/13/19 08:49 70 75 184/81 H BP BP Pulse Ox 07/13/19 15:28 142/66 H 95 07/13/19 11:19 123/63 96 07/13/19 09:52 07/13/19 09:51 07/13/19 08:49 188/82 H Weight Weight 100 lb I&O: 07/12/19 07/13/19 07/14/19 06:59 06:59 06:59 Intake Total 1880 1060 Balance 1880 1060 Result Diagrams: 07/13/19 04:33 07/13/19 04:33 Additional Labs: Laboratory Tests 07/12/19 07/12/19 07/13/19 11:02 17:15 04:33 Magnesium 1.5 L Total Bilirubin 1.6 H 1.2 EKG Reviewed by me: Yes (Tele Afib) Hospitalist ROS - Review of Systems Respiratory: denies: cough, dry, shortness of breath, hemoptysis, SOB with excertion, pleuritic pain, sputum, wheezing, other Cardiovascular: denies: chest pain, palpitations, orthopnea, paroxysmal noc. dyspnea, edema, light headedness, other - Medication Medications: Active Medications Generic Name Dose Route Start Last Admin Trade Name Freq PRN Reason Stop Dose Admin Acetaminophen 650 mg 07/13/19 15:44 07/13/19 16:09 Tylenol PO 650 mg Q4H PRN Administration Headache/Fever or Mild Pain Amlodipine Besylate 2.5 mg 07/13/19 09:00 07/13/19 09:51 Norvasc PO 2.5 mg DAILY DIEGO Administration Aspirin 81 mg 07/13/19 09:00 07/13/19 09:52 Ecotrin PO 81 mg DAILY DIEGO Administration Atorvastatin Calcium 80 mg 07/12/19 21:00 07/12/19 20:38 Lipitor PO 80 mg HS DIEGO Administration Carvedilol 6.25 mg 07/13/19 09:00 07/13/19 09:52 Coreg PO 6.25 mg DAILY DIEGO Administration Cholecalciferol 5,000 units 07/13/19 09:00 07/13/19 09:50 Vitamin D3 PO 5,000 units DAILY DIEGO Administration Clopidogrel Bisulfate 75 mg 07/13/19 09:00 07/13/19 09:51 Plavix PO 75 mg DAILY DIEGO Administration Digoxin 0.125 mg 07/13/19 09:00 07/13/19 09:51 Lanoxin PO 0.125 mg DAILY DIEGO Administration Ezetimibe 10 mg 07/12/19 21:00 07/12/19 20:38 Zetia PO 10 mg HS DIEGO Administration Escitalopram Oxalate 10 mg 07/13/19 09:00 07/13/19 09:51 Lexapro PO 10 mg DAILY DIEGO Administration Estradiol 0.5 mg 07/13/19 09:00 07/13/19 09:52 Estrace PO 0.5 mg DAILY DIEGO Administration Temazepam 15 mg 07/12/19 21:00 07/12/19 20:38 Restoril PO 15 mg HS DIEGO Administration - Exam General Appearance: NAD Heart: no gallops, no rubs, normal peripheral pulses, irregular Respiratory: CTAB, no wheezes, no rales, no ronchi Gastrointestinal: soft, non-tender, non-distended, normal bowel sounds Extremities: no cyanosis, no clubbing, no edema Neurological: no weakness, no focal deficits, no new deficit Psychiatric: normal affect, A&O x 3 Hosp A/P - Plan DVT proph w/SCDs Gen weakness/Tremors - multifactorial Afib with RVR Hypomagnesemia HTN HLD CAD s/p Watchman device Anxiety PLAN: Replace Magnesium Stress test and Echo per Cardiology AM labs Cont other meds as above
[2019-07-13] MEDS: Ezetimibe 10 MG TAB PO SCH (20:12)
[2019-07-13] MEDS: Atorvastatin Calcium 40 MG TAB PO SCH (20:12)
[2019-07-13] MEDS: Temazepam 15 MG CAP PO SCH (20:12)
[2019-07-14 06:10] LABS: Phosphorus 3.5 mg/dL (2.3-4.7)
[2019-07-14 06:12] LABS: Anion Gap 10 mmol/L (10-20); BUN (Urea Nitrogen) 15 mg/dL (9.8-20.1); Calc. Creatinine Clearance 42 mL/min (70-130); Carbon Dioxide 32 mmol/L (23-31); Chloride 103 mmol/L (98-107); Estimated GFR-MDRD 69; Glucose 84 mg/dL (83-110); Magnesium 2.1 mg/dL (1.6-2.6); Potassium 3.8 mmol/L (3.5-5.1); Sodium 141 mmol/L (136-145)
[2019-07-14] MEDS ORDERED: Famotidine 20 MG TAB PO SCH (09:00)
[2019-07-14] MEDS: Clopidogrel Bisulfate 75 MG TAB PO SCH (10:34)
[2019-07-14] MEDS: Carvedilol 6.25 MG TAB PO SCH (10:34)
[2019-07-14] MEDS: Estradiol 1 MG TAB PO SCH (10:35)
[2019-07-14] MEDS: Amlodipine 5 MG TAB PO SCH (10:35)
[2019-07-14] MEDS: Aspirin 81 mg Enteric Coated Tablet PO SCH (10:35)
[2019-07-14] MEDS: Digoxin 0.125 MG TAB PO SCH (10:35)
[2019-07-14] MEDS: Escitalopram Oxalate 10 mg Tablet PO SCH (10:35)
[2019-07-14] MEDS: Magnesium Chloride 64 MG TAB PO SCH ×2 (10:36→14:20)
[2019-07-14] MEDS ORDERED: ADENOSINE 60 MG/20 ML VIAL ONE (10:58)
--- NOTE | 2019-07-14 11:06 | NM ---
EXAM: CARDIAC SPECT HISTORY: Chest pain, TIA, atrial fibrillation, hypertension, dyslipidemia TECHNIQUE: A myocardial perfusion scan was performed using the single isotope 1 day protocol with roel hnetium 99m sestamibi. [32 mCi] was injected intravenously for the rest exam followed by 30 mCi for the stress study. Pharmacologic stress with adenosine was monitored and interpreted by Dr. Hernandez FINDINGS: Homogeneous tracer distribution is seen in the myocardial segments on stress and rest image s without fixed or reversible defects. Gated SPECT LVEF: 75% Wall motion exam: Normal IMPRESSION: Normal myocardial perfusion scan
[2019-07-14 11:33] VITALS: TEMP 97.8
[2019-07-14 11:55] VITALS: BP 137/76
[2019-07-14] MEDS ORDERED: Cefdinir 300 MG CAP PO SCH ×2 (14:30→21:00)
--- NOTE | 2019-07-14 14:32 | PRG ---
DATE OF SERVICE: 07/14/2019 SUBJECTIVE: Ms. Davis is doing well today. Her stress test was normal. Echocardiogram was unremarkable. Normal left ventricular function. She has left atrial enlargement as expected with chronic atrial fibrillation. She has really not had any significant bradyarrhythmia or tachycardia yesterday or today. ASSESSMENT: 1. Jerking and shaking of uncertain etiology. 2. Magnesium level is low, possibly contributing to symptoms. 3. Some element of atrial fibrillation with a rapid rate. PLAN: She will go home with an event monitor to see if she is having rapid rates. See us in the office in a few weeks. If she is having further episodes of tachycardia, she would need a pacemaker to further give her medicines to slow the rate down as the rates are in the 60s currently. Job ID: [id number]
--- NOTE | 2019-07-15 12:24 | STRESS ---
Acquisition Time: 2019-07-14 09:14:12 Total Exercise Time: 00:04:00 Test Indications: CHEST PAIN Medications: Protocol: ADENOSINE Max HR: 078 BPM 54% of Pred: 143 BPM Max BP: 142/072 mmHG Max Work Load: 1.0 METS THE PATIENT WAS INJECTED WITH ADENOSINE. SHE DID NOT DEVELOP CHEST PAIN. THERE WAS NO SIGNIFICANT ST DEPRESSION. AWAIT NUCLEAR IMAGES FOR DEFINITIVE DIAGNOSIS. Confirmed by MADI JOEL ([id number]), book editor MORRIS MCKEON ([id number]) on 07/15/2019 12:23:43 PM Referred By: MD Srikanth MAS Confirmed By:MADI JOEL
--- NOTE | 2019-07-15 13:08 | DIS ---
DATE OF ADMISSION: 07/12/2019 DATE OF DISCHARGE: 07/14/2019 DISCHARGE DISPOSITION: Home. FOLLOWUP: 1. Follow up with primary care physician, Dr. Carri Maguire in 1 week. 2. Follow up with Dr. Fitch as scheduled. 3. Basic metabolic profile along with magnesium after 1 week is recommended, primary care physician advised to follow. DISCHARGE MEDICATIONS: 1. Omnicef 300 mg b.i.d. for 5 days for UTI. 2. Magnesium oxide 400 mg 3 times a day. 3. All other home medications were left unchanged. BRIEF HOSPITAL COURSE: The patient is a 79-year-old female with paroxysmal atrial fibrillation, presented to the emergency room with generalized tremors along with headache. Workup was consistent with atrial fibrillation with rapid ventricular response. She was found to have magnesium of 1.5, this was replaced. Her symptoms improved after magnesium replacement. She was evaluated by Cardiology, Dr. Fitch. Echocardiogram was obtained that showed ejection fraction 55% to 60% with mild aortic regurgitation, mild tricuspid regurgitation with moderate to severely dilated left atrium. She also underwent a Cardiolite stress test that was negative for reversible ischemia. Event monitor will be arranged by Dr. Fitch. She has been cleared by Cardiology for discharge. FINAL DIAGNOSES: 1. Generalized weakness with jerking of unclear etiology. 2. Hypomagnesemia, replaced. 3. Escherichia coli urinary tract infection, sensitive to cephalosporins. 4. Atrial fibrillation with rapid ventricular response. 5. Hypertension. 6. Hyperlipidemia. 7. Coronary artery disease. 8. History of Watchman device. 9. Anxiety. 10. History of gastrointestinal bleeding in the past. 11. Chronic anemia. 12. Chronic kidney disease, stage 3. Plan of care was discussed with the patient and the family in detail, they stated understanding. Job ID: [id number]
== END 2019-07-14 16:21 | disposition home or self-care (01) ==
LOC: ERS 10:43 → 2SW 15:24
PROVIDERS: ADMIT Neuromusculoskeletal Medicine & OMM; ATTEND Neuromusculoskeletal Medicine & OMM
DX: R53.1 Weakness (principal); R25.1 Tremor, unspecified; R51 Headache; E83.42 Hypomagnesemia; N39.0 Urinary tract infection, site not specified; B96.20 Unspecified Escherichia coli [E. coli] as the cause of diseases classified elsewhere; I48.0 Paroxysmal atrial fibrillation; I12.9 Hypertensive chronic kidney disease with stage 1 through stage 4 chronic kidney disease, or unspecified chronic kidney disease; N18.3 Chronic kidney disease, stage 3 (moderate); D63.1 Anemia in chronic kidney disease; E78.5 Hyperlipidemia, unspecified; I25.10 Atherosclerotic heart disease of native coronary artery without angina pectoris; F41.9 Anxiety disorder, unspecified; Z86.73 Personal history of transient ischemic attack (TIA), and cerebral infarction without residual deficits; Z79.02 Long term (current) use of antithrombotics/antiplatelets; Z79.82 Long term (current) use of aspirin; Z79.899 Other long term (current) drug therapy; Z88.8 Allergy status to other drugs, medicaments and biological substances; Z91.041 Radiographic dye allergy status
CPT/HCPCS: 70450; 71045; 78452; 80048; 80053 ×2; 80162; 82607; 82746; 83735 ×3; 84100; 84484 ×2; 85025 ×2; 87077; 87086; 87186; 93005; 93017; 93306; 96361 ×2; 96365; 96366; 97116; 97139 ×4; 97535; 99285; A9500; G0378 ×4; 36415; 81003; 81015; 96360; J0153; J3475

== ENCOUNTER 2019-09-07 07:47 | Emergency (ER) | payer MEDICARE, BC ==
[2019-09-07 08:40] LABS: #Basophils 0.1 thou/uL (0.0-0.2); #Eosinphils 0.1 thou/uL (0.0-0.7); #Lymphocytes 1.7 thou/uL (1.20-3.40); #Monocytes 0.6 thou/uL (0.11-0.59); #Neutrophils 7.9 thou/uL (1.40-6.50); %Basophils 0.6 % (0.0-1.0); %Eosinophils 1.1 % (0.0-10.0); %Lymphocytes 15.9 % (21.0-51.0); %Monocytes 5.7 % (0.0-10.0); %Neutrophils 76.7 % (42.0-75.0); Hemoglobin 13.1 g/dL (12.0-16.0); Mean Corpuscular HGB CONC 34.5 g/dL (32.0-36.0); Mean Corpuscular Hemoglobin 32.7 pg (27.0-31.0); Platelet Count 208 thou/uL (130-400); RBC Distribution Width 14.7 % (11.5-14.5); Red Blood Cell (RBC) Count 4.01 mill/uL (4.20-5.40); White Blood Cell (WBC) Count 10.3 thou/uL (4.8-10.8)
[2019-09-07 08:59] LABS: ALT (SGPT) 25 U/L (8-55); AST (SGOT) 29 U/L (5-34); Albumin 4.6 g/dL (3.4-4.8); Alkaline Phosphatase 178 U/L (40-110); Anion Gap 13 mmol/L (10-20); BUN (Urea Nitrogen) 12 mg/dL (9.8-20.1); Bilirubin, Total 1.8 mg/dL (0.2-1.2); Calc. Creatinine Clearance 0 mL/min (70-130); Calcium 9.5 mg/dL (7.8-10.44); Carbon Dioxide 32 mmol/L (23-31); Chloride 99 mmol/L (98-107); Estimated GFR-MDRD 72; Globulin 3.5 g/dL (2.4-3.5); Glucose 86 mg/dL (83-110); Potassium 3.4 mmol/L (3.5-5.1); Protein, Total 8.1 g/dL (6.0-8.3); Sodium 141 mmol/L (136-145)
--- NOTE | 2019-09-07 09:28 | CT ---
Exam: Head CT without contrast HISTORY: Acute onset headache, a few days ago. Pain. COMPARISON: 07/12/2019 FINDINGS: Hemorrhage: No intraparenchymal hemorrhage or extra-axial hematoma. Brain parenchyma: Cortical padilla-white matter differentiation is preserved. No mass effect or midline shift. Basilar cisterns are patent.Small vessel ischemic changes white matter are noted. Ventricular system: Ventricles and sulci are patent and symmetric. Calvarium: Intact. Sinuses and mastoid air cells: Near complete opacification of the left maxillary sinus. IMPRESSION: 1. No acute intracranial process. No significant interval change. 2. Near complete opacification the left maxillary sinus.
--- NOTE | 2019-09-07 09:33 | CT ---
CT CERVICAL SPINE WITH CORONAL AND SAGITTAL REFORMATIONS AND NO IV CONTRAST: HISTORY: Headache, neck pain FINDINGS: Multilevel degenerative changes and neural foraminal stenoses are present. There is minimal anterolis thesis of C6 over C5. No fracture, subluxation or facet malalignment is identified. No prevertebral soft tissue swelling is apparent. The visualized lung apices are unremarkable. IMPRESSION: Cervical spondylosis. No CT evidence for fracture or traumatic subluxation. Further evaluation with MRI would be helpful.
[2019-09-07] MEDS ORDERED: Digoxin 0.125 MG TAB ONE (10:00)
[2019-09-07] MEDS ORDERED: Metoclopramide HCl 10 MG/2 ML VIAL ONE (10:00)
[2019-09-07] MEDS ORDERED: Ketorolac Tromethamine 30 MG/ML VIAL ONE (10:00)
[2019-09-07] MEDS ORDERED: Carvedilol 6.25 MG TAB PO SCH (10:15)
== END 2019-09-07 12:03 | disposition home or self-care (01) ==
LOC: ERS 07:47
DX: S16.1XXA Strain of muscle, fascia and tendon at neck level, initial encounter (principal); G43.909 Migraine, unspecified, not intractable, without status migrainosus; I10 Essential (primary) hypertension; Z86.73 Personal history of transient ischemic attack (TIA), and cerebral infarction without residual deficits; Z79.899 Other long term (current) drug therapy; X58.XXXA Exposure to other specified factors, initial encounter
CPT/HCPCS: 36415; 70450; 72125; 80053; 85025; 93005; J1885; J2765

== ENCOUNTER 2019-09-08 17:36 | Inpatient (IN) | payer MEDICARE, BC ==
[2019-09-08 18:50] LABS: #Eosinphils 0.1 thou/uL (0.0-0.7); #Lymphocytes 1.5 thou/uL (1.20-3.40); #Monocytes 0.9 thou/uL (0.11-0.59); #Neutrophils 9.3 thou/uL (1.40-6.50); %Basophils 0.3 % (0.0-1.0); %Eosinophils 0.6 % (0.0-10.0); %Lymphocytes 12.7 % (21.0-51.0); %Monocytes 7.6 % (0.0-10.0); %Neutrophils 78.8 % (42.0-75.0); Hemoglobin 12.4 g/dL (12.0-16.0); Mean Corpuscular HGB CONC 34.3 g/dL (32.0-36.0); Mean Corpuscular Hemoglobin 32.6 pg (27.0-31.0); Mean Platelet Volume 7.5 fL (7.4-10.4); Platelet Count 209 thou/uL (130-400); RBC Distribution Width 14.5 % (11.5-14.5); Red Blood Cell (RBC) Count 3.82 mill/uL (4.20-5.40); White Blood Cell (WBC) Count 11.8 thou/uL (4.8-10.8)
[2019-09-08 19:12] LABS: ALT (SGPT) 20 U/L (8-55); AST (SGOT) 21 U/L (5-34); Albumin 4.3 g/dL (3.4-4.8); Alkaline Phosphatase 145 U/L (40-110); Anion Gap 15 mmol/L (10-20); BUN (Urea Nitrogen) 14 mg/dL (9.8-20.1); Bilirubin, Total 2.7 mg/dL (0.2-1.2); Calc. Creatinine Clearance 0 mL/min (70-130); Calcium 9.2 mg/dL (7.8-10.44); Carbon Dioxide 28 mmol/L (23-31); Chloride 98 mmol/L (98-107); Estimated GFR-MDRD 64; Globulin 3.3 g/dL (2.4-3.5); Glucose 102 mg/dL (83-110); Lipase 24 U/L (8-78); Magnesium 1.4 mg/dL (1.6-2.6); Potassium 3.4 mmol/L (3.5-5.1); Protein, Total 7.6 g/dL (6.0-8.3); Sodium 138 mmol/L (136-145)
[2019-09-08 21:10] LABS: Bacteria/HPF 4+ HPF (None Seen); Bilirubin Negative (Negative); Blood, Urine 1+ (Negative); Clarity Turbid (Clear); Glucose, Urine (Dipstick) Normal (Negative); Leukocyte 500 Leu/uL (Negative); Nitrite 1+ (Negative); Protein, Urine (Dipstick) 50 mg/dL (Neg-Trace); Urobilinogen Normal mg/dL (Less than 2); WBC/HPF Greater than 50 HPF (0-3)
[2019-09-08] MEDS ORDERED: cefTRIAXone\\ROCEPHIN 1 GM VIAL ONE (21:59)
[2019-09-09 00:12] VITALS: BMI 18.8
[2019-09-09 00:21] LABS: Troponin I Less than 0.010 ng/mL (< 0.028)
[2019-09-09] MEDS ORDERED: Sodium Chloride 0.9% 1,000 ML IV SCH (00:27)
[2019-09-09 03:01] LABS: Troponin I Less than 0.010 ng/mL (< 0.028)
[2019-09-09] MEDS ORDERED: Ondansetron PF 4 MG/2 ML Vial IVP PRN (04:30)
[2019-09-09] MEDS ORDERED: Ketorolac Tromethamine 30 MG/ML VIAL IVP PRN (04:31)
[2019-09-09] MEDS ORDERED: Magnesium 2 GM/50 ML 2 GM in Premix Bag 1 BAG IVPB SCH (05:00)
[2019-09-09] MEDS: Methyl Salicylate/Menthol 85 GM TUBE TOP PRN ×2 (06:39→18:04)
--- NOTE | 2019-09-09 07:29 | HP ---
PRIMARY CARE PHYSICIAN: None. CHIEF COMPLAINT: Altered mental status x2 days. HISTORY OF PRESENT ILLNESS: This is a 79-year-old female with past medical history of chronic atrial fibrillation, status post Watchman procedure, hypertension, dyslipidemia, coronary artery disease, prior GI bleed, history of recurrent UTI, who was brought in to [facility] ER by daughter for 2-day history of confusion, disorientation, prompting further evaluation. The daughter notes that the patient went to the emergency room on Thursday morning for complaints of right shoulder and neck pain and spasms, and was discharged with oral tramadol and oral Flexeril tablets, 1st dose of which the patient took Thursday afternoon. Daughter notes since Thursday she has noted her mother to be acting out of character and on morning noted ongoing confusion and disorientation. She noticed that upon injecting the pills only 5 of the 12 Flexeril 10 mg tablets were remaining. She is unsure if her mother actually overdosed on the tablets. In the emergency room, the patient was noted to have atrial fibrillation with rapid ventricular response, 110s to 115 and with 1 L IV fluid bolus, heart rates improved to ventricular rate control. The urinalysis suggests a gross urinary tract infection with white blood cell count of 12, and the patient was administered 1 g IV Rocephin, admitted for further inpatient evaluation. A noncontrast head and neck CT revealed no acute pathology. At bedside this morning, the patient is accompanied by daughter. She is oriented to person and place. She feels coherent, but at often times rambles in conversation which the daughter notes is not her baseline. The patient also acknowledges that she is feeling intermittently confused. She denies any dysuria or hematuria. She denies any other sedative medications. Review of home medications notes the patient is on Restoril nightly tablets. No recent falls reported. No anginal complaints. Of note, labs also revealed a magnesium of 1.4. The daughter notes that the patient has had involuntary trembling and slowing of her hands with no seizure-like activity reported and low magnesium levels. Of note, the patient is also on home magnesium repletion. PAST MEDICAL HISTORY: Chronic atrial fibrillation, status post Watchman procedure, history of GI bleed, coronary artery disease, hypertension, dyslipidemia, and history of UTI. PAST SURGICAL HISTORY: Watchman procedure, hysterectomy, tonsillectomy, EGD, C6-C7 disk herniation. SOCIAL HISTORY: The patient lives at home. No reported tobacco or alcohol use. She does not use any assistive devices at baseline. ALLERGIES: DOCUMENTED TO BENADRYL, IODINE, SUDAFED, AND AMBIEN. REVIEW OF SYSTEMS: Pertinent positives as per HPI. Remainder of review of systems is negative. MEDICATIONS: Home medications will be reviewed as per admission medication reconciliation. FAMILY HISTORY: Patient's mother had ovarian malignancies. PHYSICAL EXAMINATION: VITAL SIGNS: T-max, afebrile, 98.5, pulse is 83-88, atrial fibrillation, blood pressure 163/77, oxygen saturation 97% on room air, respirations 14-16, unlabored. GENERAL APPEARANCE: Elderly female who is awake, alert, oriented, coherent in speech, but intermittently stuttering and rambling in conversation. Nontoxic appearance. HEENT: Normocephalic, atraumatic. No facial asymmetry. Mucous membranes are moist. Pupils are equally round. Extraocular muscles are intact. NECK: Supple. There is right posterior neck and lateral neck tenderness to palpation extending into the upper trapezius into the right chest wall. CARDIOVASCULAR: S1, S2, irregularly, irregular. No harsh murmurs. No chest wall tenderness to palpation. LUNGS: Bilateral equal air entry on anterior auscultation. Unlabored respirations. No wheezing or rales. ABDOMEN: Soft, nontender, nondistended. EXTREMITIES: No appreciable edema in bilateral lower extremities. No cyanosis or deformity. SKIN: Warm to touch without rash or pallor or abrasion. LABORATORY DATA: WBC 11.8, H and H 12.4/36.2, platelets 209. Sodium 138, potassium 3.4, chloride 98, bicarb 28, glucose 102, BUN and creatinine 14/0.86, T bilirubin 2.7, magnesium 1.4, ammonia 23. Troponin I negative x3. LFTs unremarkable. Urinalysis reveals turbid appearance, 50 protein, 10 ketones, 1+ blood, 1+ nitrites, 500 leukocyte esterases, greater than 50 white blood cells, 4+ bacteria, 7-10 squamous epithelial cells with 21-50 hyaline casts. IMAGING: Noncontrast head and neck CT reveals no acute pathology. ASSESSMENT: 1. Acute toxic metabolic encephalopathy, suspected secondary to multifactorial etiology including medication side effects from tramadol and Flexeril as well as urinary tract infection. At this time, the patient will be admitted as inpatient status and continued on telemetry monitoring. We will withhold all psychotropic and sedative medications. The patient was administered 1 g IV Rocephin in the ER and we will continue 1 g IV Rocephin daily. We will follow urine cultures and continue isotonic saline. We will monitor for improvement in mentation. We will maintain fall precautions. The patient is not yet back at her baseline and will need ongoing monitoring. 2. Chronic atrial fibrillation with intermittent rapid ventricular response, currently with ventricular rate control. Continue IV fluid resuscitation. Resume home medications. The patient has had prior Watchman procedure done in March 2019 due to history of gastrointestinal bleeding. 3. Hypomagnesemia, replete. 4. Generalized weakness and deconditioning. Consult PT and OT. 5. Hypertension, uncontrolled. Resume home medications. 6. Acute urinary tract infection. Continue IV Rocephin and follow urine cultures and deescalate as appropriate. 7. Dyslipidemia. 8. Coronary artery disease. Continue dual anti-platelet therapy. 9. Code status: Full code. 10. Deep venous thrombosis prophylaxis, Lovenox. 11. Check a.m. labs 09/09/2019. 12. Disposition: Inpatient telemetry admission. Job ID: [id number]
[2019-09-09] MEDS: Digoxin 0.125 MG TAB PO SCH (08:33)
[2019-09-09] MEDS: Carvedilol 6.25 MG TAB PO SCH ×2 (08:33→20:12)
[2019-09-09] MEDS: Saccharomyces boulardii 250 MG CAP PO SCH (08:33)
[2019-09-09] MEDS: Ezetimibe 10 MG TAB PO SCH (08:33)
[2019-09-09] MEDS: Enoxaparin Sodium 40 MG/0.4 ML SYRINGE SC SCH (08:34)
[2019-09-09] MEDS: Estradiol 1 MG TAB PO SCH (08:34)
[2019-09-09] MEDS: Clopidogrel Bisulfate 75 MG TAB PO SCH (08:34)
[2019-09-09] MEDS: Aspirin 81 mg Enteric Coated Tablet PO SCH (08:34)
[2019-09-09] MEDS: Spironolactone 25 MG TAB PO SCH (08:34)
[2019-09-09] MEDS: cefTRIAXone\\ROCEPHIN 1 GM in Sodium Chloride 0.9% 100 ML IVPB SCH (08:35)
[2019-09-09] MEDS: Magnesium Chloride 64 MG TAB PO SCH ×3 (08:56→20:13)
[2019-09-09] MEDS ORDERED: Atorvastatin Calcium 40 MG TAB PO SCH (09:00)
[2019-09-09] MEDS: Escitalopram Oxalate 10 mg Tablet PO SCH (20:12)
[2019-09-09] MEDS: Atorvastatin Calcium 40 MG TAB PO SCH (20:12)
[2019-09-10] MEDS ORDERED: Lorazepam 2 MG/ML VIAL SLOW IVP PRN (02:10)
[2019-09-10 05:12] LABS: #Eosinphils 0.1 thou/uL (0.0-0.7); #Lymphocytes 1.5 thou/uL (1.20-3.40); #Monocytes 0.7 thou/uL (0.11-0.59); #Neutrophils 6.3 thou/uL (1.40-6.50); %Basophils 0.5 % (0.0-1.0); %Eosinophils 1.2 % (0.0-10.0); %Lymphocytes 16.9 % (21.0-51.0); %Monocytes 8.1 % (0.0-10.0); %Neutrophils 73.3 % (42.0-75.0); Hemoglobin 11.1 g/dL (12.0-16.0); Mean Corpuscular HGB CONC 33.3 g/dL (32.0-36.0); Mean Platelet Volume 7.7 fL (7.4-10.4); Platelet Count 186 thou/uL (130-400); RBC Distribution Width 14.2 % (11.5-14.5); Red Blood Cell (RBC) Count 3.48 mill/uL (4.20-5.40); White Blood Cell (WBC) Count 8.6 thou/uL (4.8-10.8)
[2019-09-10 05:33] LABS: Anion Gap 13 mmol/L (10-20); BUN (Urea Nitrogen) 11 mg/dL (9.8-20.1); Calc. Creatinine Clearance 44 mL/min (70-130); Calcium 8.6 mg/dL (7.8-10.44); Carbon Dioxide 27 mmol/L (23-31); Chloride 102 mmol/L (98-107); Estimated GFR-MDRD 74; Glucose 75 mg/dL (83-110); Magnesium 1.8 mg/dL (1.6-2.6); Potassium 3.1 mmol/L (3.5-5.1); Sodium 139 mmol/L (136-145)
[2019-09-10] MEDS: cefTRIAXone\\ROCEPHIN 1 GM in Sodium Chloride 0.9% 100 ML IVPB SCH (09:18)
[2019-09-10] MEDS: Digoxin 0.125 MG TAB PO SCH (09:19)
[2019-09-10] MEDS: Ezetimibe 10 MG TAB PO SCH (09:19)
[2019-09-10] MEDS: Magnesium Chloride 64 MG TAB PO SCH ×3 (09:19→21:03)
[2019-09-10] MEDS: Aspirin 81 mg Enteric Coated Tablet PO SCH (09:20)
[2019-09-10] MEDS: Estradiol 1 MG TAB PO SCH (09:20)
[2019-09-10] MEDS: Saccharomyces boulardii 250 MG CAP PO SCH (09:20)
[2019-09-10] MEDS: Carvedilol 6.25 MG TAB PO SCH ×2 (09:20→21:02)
[2019-09-10] MEDS: Clopidogrel Bisulfate 75 MG TAB PO SCH (09:20)
[2019-09-10] MEDS: Enoxaparin Sodium 40 MG/0.4 ML SYRINGE SC SCH (09:21)
[2019-09-10] MEDS ORDERED: Potassium Chloride 20 MEQ TAB PO SCH (09:30)
[2019-09-10] MEDS: Escitalopram Oxalate 10 mg Tablet PO SCH (21:02)
[2019-09-10] MEDS: Acetaminophen 325 MG TAB PO PRN (21:02)
[2019-09-10] MEDS: Atorvastatin Calcium 40 MG TAB PO SCH (21:02)
--- NOTE | 2019-09-10 22:39 | PDOC.HOSPP ---
- Subjective Subjective: Daughter and sitter in the room. She is feeling well. Her neck/shoulder pain is resolved. Still confused. - Objective Vital Signs & Weight: Vital Signs (12 hours) Temp Pulse Resp BP Pulse Ox 09/10/19 19:53 97.7 F 83 16 186/100 H 95 09/10/19 15:55 99 F 90 18 153/104 H 96 09/10/19 12:00 97.9 F 85 16 168/75 H 97 Weight Admit Weight 99 lb 11.2 oz Weight 99 lb 11.2 oz I&O: 09/09/19 09/10/19 09/11/19 06:59 06:59 06:59 Intake Total 1445 1550 Output Total 800 1650 Balance 645 -100 Result Diagrams: 09/10/19 04:35 09/10/19 04:35 Hospitalist ROS - Medication Medications: Active Medications Generic Name Dose Route Start Last Admin Trade Name Freq PRN Reason Stop Dose Admin Acetaminophen 650 mg 09/09/19 04:30 09/10/19 21:02 Tylenol PO 650 mg Q4H PRN Administration Headache/Fever/Mild Pain (1-3) Aspirin 81 mg 09/09/19 09:00 09/10/19 09:20 Ecotrin PO 81 mg DAILY DIEGO Administration Atorvastatin Calcium 80 mg 09/09/19 21:00 09/10/19 21:02 Lipitor PO 80 mg HS DIEGO Administration Carvedilol 6.25 mg 09/09/19 09:00 09/10/19 21:02 Coreg PO 6.25 mg BID DIEGO Administration Cholecalciferol 5,000 units 09/09/19 09:00 09/10/19 09:23 Vitamin D3 PO 5,000 units DAILY DIEGO Administration Clopidogrel Bisulfate 75 mg 09/09/19 09:00 09/10/19 09:20 Plavix PO 75 mg DAILY DIEGO Administration Digoxin 0.125 mg 09/09/19 09:00 09/10/19 09:19 Lanoxin PO 0.125 mg DAILY DIEGO Administration Ezetimibe 10 mg 09/09/19 09:00 09/10/19 09:19 Zetia PO 10 mg DAILY DIEGO Administration Enoxaparin Sodium 40 mg 09/09/19 09:00 09/10/19 09:21 Lovenox SC 40 mg 0900 DIEGO Administration Escitalopram Oxalate 10 mg 09/09/19 21:00 09/10/19 21:02 Lexapro PO 10 mg HS DIEGO Administration Estradiol 0.5 mg 09/09/19 09:00 09/10/19 09:20 Estrace PO 0.5 mg DAILY DIEGO Administration Ceftriaxone Sodium 1 gm/ 100 mls @ 200 mls/hr 09/09/19 09:00 09/10/19 09:18 Sodium Chloride IVPB 100 mls Q24HR DIEGO Administration Ketorolac Tromethamine 15 mg 09/09/19 04:31 09/09/19 06:39 Toradol IVP 09/14/19 04:32 15 mg Q6H PRN Administration Pain Lorazepam 0.5 mg 09/10/19 02:10 09/10/19 21:02 Ativan SLOW IVP 0.5 mg Q4H PRN Administration Anxiety/Agitation Magnesium Chloride 128 mg 09/09/19 09:00 09/10/19 21:03 Slow-Mag PO 128 mg TID DIEGO Administration Menthol/Methyl Salicylate 0 gm 09/09/19 06:27 09/09/19 18:04 Muscle Rub Cream (Bengay) TOP 85 gm Q6H PRN Administration Muscle Pain Quetiapine Fumarate 25 mg 09/09/19 21:00 09/10/19 21:02 Seroquel PO Not Given HS DIEGO Saccharomyces Boulardii 250 mg 09/09/19 09:00 09/10/19 09:20 Florastor PO 250 mg DAILY DIEGO Administration Sodium Chloride 10 ml 09/09/19 09:00 09/10/19 21:04 Flush - Normal Saline IVF 10 ml Q12HR DIEGO Administration Spironolactone 25 mg 09/09/19 09:00 09/09/19 08:34 Aldactone PO 25 mg Q2DAYS DIEGO Administration - Exam General Appearance: NAD, awake alert Heart: RRR, no murmur, no gallops, no rubs, normal peripheral pulses Respiratory: CTAB, no wheezes, no rales, no ronchi, normal chest expansion, no tachypnea, normal percussion Gastrointestinal: soft, non-tender, non-distended, normal bowel sounds, no palpable masses, no hepatomegaly, no splenomegaly, no bruit Psychiatric: normal affect, not oriented (Thinks she is in a movie theater.) Hosp A/P (1) Toxic metabolic encephalopathy Code(s): G92 - TOXIC ENCEPHALOPATHY Status: Acute (2) Chronic atrial fibrillation Code(s): I48.2 - CHRONIC ATRIAL FIBRILLATION * DO NOT USE * Status: Chronic - Plan Suspect her encephalopathy is multifactorial Meds (Tramadol and Flexeril) and UTI. Follow up urine cx. Time for clearing the meds. Continue empiric Rocephin. Usual home meds.
[2019-09-11] MEDS: Enoxaparin Sodium 40 MG/0.4 ML SYRINGE SC SCH (09:24)
[2019-09-11] MEDS: Carvedilol 6.25 MG TAB PO SCH ×2 (09:26→19:47)
[2019-09-11] MEDS: Spironolactone 25 MG TAB PO SCH (09:26)
[2019-09-11] MEDS: Saccharomyces boulardii 250 MG CAP PO SCH (09:26)
[2019-09-11] MEDS: Ezetimibe 10 MG TAB PO SCH (09:26)
[2019-09-11] MEDS: Digoxin 0.125 MG TAB PO SCH (09:27)
[2019-09-11] MEDS: Aspirin 81 mg Enteric Coated Tablet PO SCH (09:27)
[2019-09-11] MEDS: Clopidogrel Bisulfate 75 MG TAB PO SCH (09:27)
[2019-09-11] MEDS: cefTRIAXone\\ROCEPHIN 1 GM in Sodium Chloride 0.9% 100 ML IVPB SCH (09:33)
[2019-09-11] MEDS: Magnesium Chloride 64 MG TAB PO SCH ×3 (09:57→20:46)
[2019-09-11] MEDS: Estradiol 1 MG TAB PO SCH (10:03)
[2019-09-11] MEDS: ICOSAPENT ETHYL 1 GM PO SCH ×2 (11:37→11:38)
[2019-09-11] MEDS: Acetaminophen 325 MG TAB PO PRN ×2 (12:28→20:51)
[2019-09-11] MEDS: COLESTIPOL PO SCH ×2 (12:28→18:21)
--- NOTE | 2019-09-11 14:47 | PDOC.HOSPP ---
- Subjective Subjective: Still very encephalopathic. Family reports she has not really slept at all. She his hallucinating at times. Reports some right flank pain once to family member. Denies pain now. - Objective Vital Signs & Weight: Vital Signs (12 hours) Temp Pulse Resp BP Pulse Ox 09/11/19 12:30 98.5 F 95 18 172/85 H 96 09/11/19 09:27 103 H 09/11/19 08:20 93 L 09/11/19 08:18 98.1 F 95 18 156/72 H 93 L 09/11/19 04:00 98.3 F 96 18 156/72 H 94 L Weight Admit Weight 99 lb 11.2 oz Weight 99 lb 11.2 oz I&O: 09/10/19 09/11/19 09/12/19 06:59 06:59 06:59 Intake Total 1445 2030 Output Total 800 1650 Balance 645 380 Result Diagrams: 09/10/19 04:35 09/10/19 04:35 Hospitalist ROS - Medication Medications: Active Medications Generic Name Dose Route Start Last Admin Trade Name Jimq PRN Reason Stop Dose Admin Acetaminophen 650 mg 09/09/19 04:30 09/11/19 12:28 Tylenol PO 650 mg Q4H PRN Administration Headache/Fever/Mild Pain (1-3) Aspirin 81 mg 09/09/19 09:00 09/11/19 09:27 Ecotrin PO 81 mg DAILY DIEGO Administration Carvedilol 6.25 mg 09/09/19 09:00 09/11/19 09:26 Coreg PO 6.25 mg BID DIEGO Administration Cholecalciferol 5,000 units 09/09/19 09:00 09/11/19 09:27 Vitamin D3 PO 5,000 units DAILY DIEGO Administration Clopidogrel Bisulfate 75 mg 09/09/19 09:00 09/11/19 09:27 Plavix PO 75 mg DAILY DIEGO Administration Digoxin 0.125 mg 09/09/19 09:00 09/11/19 09:27 Lanoxin PO 0.125 mg DAILY DIEGO Administration Ezetimibe 10 mg 09/09/19 09:00 09/11/19 09:26 Zetia PO 10 mg DAILY DIEGO Administration Enoxaparin Sodium 40 mg 09/09/19 09:00 09/11/19 09:24 Lovenox SC 40 mg 0900 DIEGO Administration Estradiol 0.5 mg 09/09/19 09:00 09/11/19 10:03 Estrace PO 0.5 mg DAILY DIEGO Administration Ceftriaxone Sodium 1 gm/ 100 mls @ 200 mls/hr 09/09/19 09:00 09/11/19 09:33 Sodium Chloride IVPB 100 mls Q24HR DIEGO Administration Ketorolac Tromethamine 15 mg 09/09/19 04:31 09/09/19 06:39 Toradol IVP 09/14/19 04:32 15 mg Q6H PRN Administration Pain Lorazepam 0.5 mg 09/10/19 02:10 09/10/19 21:02 Ativan SLOW IVP 0.5 mg Q4H PRN Administration Anxiety/Agitation Magnesium Chloride 128 mg 09/09/19 09:00 09/11/19 09:57 Slow-Mag PO 128 mg TID DIEGO Administration Menthol/Methyl Salicylate 0 gm 09/09/19 06:27 09/09/19 18:04 Muscle Rub Cream (Bengay) TOP 85 gm Q6H PRN Administration Muscle Pain Cholestipol 5 Gms 0 each 09/11/19 17:00 09/11/19 12:28 PO 1 each BID-WM DIEGO Administration Saccharomyces Boulardii 250 mg 09/09/19 09:00 09/11/19 09:26 Florastor PO 250 mg DAILY DIEGO Administration Sodium Chloride 10 ml 09/09/19 09:00 09/11/19 09:27 Flush - Normal Saline IVF 10 ml Q12HR DIEGO Administration Spironolactone 25 mg 09/09/19 09:00 09/11/19 09:26 Aldactone PO 25 mg Q2DAYS DIEGO Administration - Exam General Appearance: NAD, awake alert Heart: no murmur, no gallops, no rubs, irregular Respiratory: CTAB, no wheezes, no rales, no ronchi, normal chest expansion, no tachypnea, normal percussion Gastrointestinal: soft, non-tender, non-distended, normal bowel sounds, no palpable masses, no hepatomegaly, no splenomegaly, no bruit Extremities: no cyanosis, no clubbing, no edema Skin: normal turgor Neurological: no focal deficits Neurological - other findings: Clear speech. Interacts. Musculoskeletal: normal tone Psychiatric - other findings: Pleasant, confused. Hosp A/P (1) Toxic metabolic encephalopathy Code(s): G92 - TOXIC ENCEPHALOPATHY Status: Acute (2) Chronic atrial fibrillation Code(s): I48.2 - CHRONIC ATRIAL FIBRILLATION * DO NOT USE * Status: Chronic (3) Hypomagnesemia Code(s): E83.42 - HYPOMAGNESEMIA Status: Acute (4) Hypokalemia Code(s): E87.6 - HYPOKALEMIA Status: Acute (5) UTI (urinary tract infection) Status: Acute (6) Hyperbilirubinemia Code(s): E80.6 - OTHER DISORDERS OF BILIRUBIN METABOLISM Status: Acute - Plan Suspect her encephalopathy is multifactorial Meds (Tramadol and Flexeril) and UTI. Called lab regarding urine cx. There was not reflex culture with the UA order. No culture obtained. Time for clearing the meds. Does not seem to be resolving. Continue empiric Rocephin. Add Zosyn for additional coverage. Repeat UA. Repeat labs today. RUQ US for encephalopathy and elevated bilirubin levels. She did report R flank pain to a family member, but she denies it now and has no TTP. Has some risk for CVA with afib, but has watchman device. Global encephalopathy alone not typical of CVA. Don't think she could do an MRI now. Already on antiplatelet therapy and statin. Consult Neurology. Hold Lexapro in case there is some serotonin syndrome at work. Hold Statin. Unlikely, but can cause delerium. Usual home meds. Increase the seroquel from 25 to 50 mg as she is not sleeping and that may be making the problem worse.
[2019-09-11 15:38] LABS: #Eosinphils 0.1 thou/uL (0.0-0.7); #Lymphocytes 1.3 thou/uL (1.20-3.40); #Monocytes 0.6 thou/uL (0.11-0.59); #Neutrophils 6.3 thou/uL (1.40-6.50); %Basophils 0.4 % (0.0-1.0); %Eosinophils 1.5 % (0.0-10.0); %Lymphocytes 15.9 % (21.0-51.0); %Neutrophils 75.2 % (42.0-75.0); Hemoglobin 10.9 g/dL (12.0-16.0); Mean Corpuscular HGB CONC 33.8 g/dL (32.0-36.0); Mean Corpuscular Hemoglobin 31.9 pg (27.0-31.0); Mean Corpuscular Volume 94.5 fL (78.0-98.0); Mean Platelet Volume 7.7 fL (7.4-10.4); Platelet Count 201 thou/uL (130-400); Red Blood Cell (RBC) Count 3.41 mill/uL (4.20-5.40); White Blood Cell (WBC) Count 8.3 thou/uL (4.8-10.8)
[2019-09-11 16:12] LABS: ALT (SGPT) 17 U/L (8-55); AST (SGOT) 24 U/L (5-34); Albumin 3.7 g/dL (3.4-4.8); Alkaline Phosphatase 130 U/L (40-110); Anion Gap 14 mmol/L (10-20); BUN (Urea Nitrogen) 12 mg/dL (9.8-20.1); Bilirubin, Total 1.7 mg/dL (0.2-1.2); Calc. Creatinine Clearance 45 mL/min (70-130); Carbon Dioxide 25 mmol/L (23-31); Chloride 103 mmol/L (98-107); Estimated GFR-MDRD 76; Glucose 105 mg/dL (83-110); Magnesium 1.6 mg/dL (1.6-2.6); Potassium 3.6 mmol/L (3.5-5.1); Protein, Total 6.7 g/dL (6.0-8.3); Sodium 138 mmol/L (136-145)
[2019-09-11 17:14] LABS: Bilirubin Negative (Negative); Blood, Urine Negative (Negative); Clarity Clear (Clear); Glucose, Urine (Dipstick) Normal (Negative); Leukocyte Negative Leu/uL (Negative); Nitrite Negative (Negative); Protein, Urine (Dipstick) Negative (Neg-Trace); Urobilinogen Normal mg/dL (Less than 2)
--- NOTE | 2019-09-11 17:40 | ULT ---
RIGHT UPPER QUADRANT ULTRASOUND CLINICAL HISTORY: Elevated bilirubin. COMPARISON: None FINDINGS: Liver:Normal echotexture without focal mass. Intrahepatic bile ducts: No intrahepatic or extrahepatic biliary dilation.; Common bile duct: 2.2 mm. Gallbladder: Normal appearing. Kramer's sign:None Main portal vein:Patent with hepatopedal flow. Pancreas:Visualized pancreas appears normal. Right kidney: Right kidney measures 10.1 x 5.1 x 6.2 cm. No focal renal lesion or hydronephrosis. Additional findings: None. IMPRESSION: Normal RUQ ultrasound.
[2019-09-11] MEDS ORDERED: Amlodipine 5 MG TAB PO SCH ×2 (18:00→18:15)
[2019-09-12] MEDS: Aspirin 81 mg Enteric Coated Tablet PO SCH (08:41)
[2019-09-12] MEDS: Estradiol 1 MG TAB PO SCH (08:41)
[2019-09-12] MEDS: Carvedilol 6.25 MG TAB PO SCH ×2 (08:42→21:30)
[2019-09-12] MEDS: Clopidogrel Bisulfate 75 MG TAB PO SCH (08:42)
[2019-09-12] MEDS: Digoxin 0.125 MG TAB PO SCH (08:42)
[2019-09-12] MEDS: Saccharomyces boulardii 250 MG CAP PO SCH (08:42)
[2019-09-12] MEDS: Ezetimibe 10 MG TAB PO SCH (08:42)
[2019-09-12] MEDS: Enoxaparin Sodium 40 MG/0.4 ML SYRINGE SC SCH (08:43)
[2019-09-12] MEDS: COLESTIPOL PO SCH ×2 (08:45→16:33)
[2019-09-12] MEDS: cefTRIAXone\\ROCEPHIN 1 GM in Sodium Chloride 0.9% 100 ML IVPB SCH (09:02)
[2019-09-12] MEDS: Magnesium Chloride 64 MG TAB PO SCH ×3 (09:02→21:31)
[2019-09-12] MEDS: Amlodipine 5 MG TAB PO SCH (09:03)
[2019-09-12] MEDS: Acetaminophen 325 MG TAB PO PRN ×2 (09:11→15:28)
--- NOTE | 2019-09-12 16:13 | PDOC.HOSPP ---
- Subjective Subjective: Doing better today. Did get some sleep last night for several hours. Had some naps today. Family present. She is more appropriate today. - Objective Vital Signs & Weight: Vital Signs (12 hours) Temp Pulse Pulse Pulse Resp BP BP 09/12/19 15:20 98.1 F 87 17 09/12/19 11:38 98.3 F 77 18 09/12/19 09:26 76 78 162/89 H 151/74 H 09/12/19 08:39 97.8 F 81 16 BP Pulse Ox 09/12/19 15:20 132/88 96 09/12/19 11:38 140/77 95 09/12/19 09:26 09/12/19 08:39 139/85 98 Weight Admit Weight 99 lb 11.2 oz Weight 99 lb 11.2 oz I&O: 09/11/19 09/12/19 09/13/19 06:59 06:59 06:59 Intake Total 2030 450 Output Total 1650 700 600 Balance 380 -250 -600 Result Diagrams: 09/11/19 15:13 09/11/19 15:13 Hospitalist ROS - Medication Medications: Active Medications Generic Name Dose Route Start Last Admin Trade Name Freq PRN Reason Stop Dose Admin Acetaminophen 650 mg 09/09/19 04:30 09/12/19 15:28 Tylenol PO 650 mg Q4H PRN Administration Headache/Fever/Mild Pain (1-3) Amlodipine Besylate 5 mg 09/12/19 09:00 09/12/19 09:03 Norvasc PO 5 mg DAILY DIEGO Administration Aspirin 81 mg 09/09/19 09:00 09/12/19 08:41 Ecotrin PO 81 mg DAILY DIEGO Administration Carvedilol 6.25 mg 09/09/19 09:00 09/12/19 08:42 Coreg PO 6.25 mg BID DIEGO Administration Cholecalciferol 5,000 units 09/09/19 09:00 09/12/19 08:42 Vitamin D3 PO 5,000 units DAILY DIEGO Administration Clopidogrel Bisulfate 75 mg 09/09/19 09:00 09/12/19 08:42 Plavix PO 75 mg DAILY DIEGO Administration Digoxin 0.125 mg 09/09/19 09:00 09/12/19 08:42 Lanoxin PO 0.125 mg DAILY DIEGO Administration Ezetimibe 10 mg 09/09/19 09:00 09/12/19 08:42 Zetia PO 10 mg DAILY DIEGO Administration Enoxaparin Sodium 40 mg 09/09/19 09:00 09/12/19 08:43 Lovenox SC 40 mg 0900 DIEGO Administration Estradiol 0.5 mg 09/09/19 09:00 09/12/19 08:41 Estrace PO 0.5 mg DAILY DIEGO Administration Ceftriaxone Sodium 1 gm/ 100 mls @ 200 mls/hr 09/09/19 09:00 09/12/19 09:02 Sodium Chloride IVPB 100 mls Q24HR DIEGO Administration Ketorolac Tromethamine 15 mg 09/09/19 04:31 09/09/19 06:39 Toradol IVP 09/14/19 04:32 15 mg Q6H PRN Administration Pain Lorazepam 0.5 mg 09/10/19 02:10 09/10/19 21:02 Ativan SLOW IVP 0.5 mg Q4H PRN Administration Anxiety/Agitation Magnesium Chloride 128 mg 09/09/19 09:00 09/12/19 15:27 Slow-Mag PO 128 mg TID DIEGO Administration Menthol/Methyl Salicylate 0 gm 09/09/19 06:27 09/09/19 18:04 Muscle Rub Cream (Bengay) TOP 85 gm Q6H PRN Administration Muscle Pain Cholestipol 5 Gms 0 each 09/11/19 17:00 09/11/19 18:21 PO Not Given BID-WM DIEGO Quetiapine Fumarate 50 mg 09/11/19 21:00 09/11/19 19:48 Seroquel PO 50 mg HS DIEGO Administration Saccharomyces Boulardii 250 mg 09/09/19 09:00 09/12/19 08:42 Florastor PO 250 mg DAILY DIEGO Administration Sodium Chloride 10 ml 09/09/19 09:00 09/12/19 08:43 Flush - Normal Saline IVF 10 ml Q12HR DIEGO Administration Spironolactone 25 mg 09/09/19 09:00 09/11/19 09:26 Aldactone PO 25 mg Q2DAYS DIEGO Administration - Exam General Appearance: NAD, awake alert Heart: no murmur, no gallops, irregular Respiratory: CTAB, no wheezes, no rales, no ronchi, normal chest expansion, no tachypnea, normal percussion Gastrointestinal: soft, non-tender, non-distended, normal bowel sounds, no palpable masses, no hepatomegaly, no splenomegaly, no bruit Extremities: no cyanosis, no clubbing, no edema Neurological: no focal deficits Musculoskeletal: normal tone Psychiatric: A&O x 3 Hosp A/P (1) Toxic metabolic encephalopathy Code(s): G92 - TOXIC ENCEPHALOPATHY Status: Acute (2) Chronic atrial fibrillation Code(s): I48.2 - CHRONIC ATRIAL FIBRILLATION * DO NOT USE * Status: Chronic (3) Hypomagnesemia Code(s): E83.42 - HYPOMAGNESEMIA Status: Acute (4) Hypokalemia Code(s): E87.6 - HYPOKALEMIA Status: Acute (5) UTI (urinary tract infection) Status: Acute (6) Hyperbilirubinemia Code(s): E80.6 - OTHER DISORDERS OF BILIRUBIN METABOLISM Status: Acute - Plan Suspect her encephalopathy is multifactorial Meds (Tramadol and Flexeril) and UTI. Continue empiric Rocephin. Add Zosyn for additional coverage. Repeat UA was clear. Repeat labs today. RUQ US for encephalopathy and elevated bilirubin levels. It was normal. Held Lexapro in case there is some serotonin syndrome at work. Doubt that at this point. Hold Statin. Unlikely, but can cause delerium. Usual home meds. Increased the seroquel from 25 to 50 mg. I think it helped her sleep. Will continue with that tonight. If all goes well, may be able to DC tomorrow. Encouraged po's and activity today.
[2019-09-13] MEDS: cefTRIAXone\\ROCEPHIN 1 GM in Sodium Chloride 0.9% 100 ML IVPB SCH (08:45)
[2019-09-13] MEDS: Magnesium Chloride 64 MG TAB PO SCH ×3 (08:45→20:00)
[2019-09-13] MEDS: Enoxaparin Sodium 40 MG/0.4 ML SYRINGE SC SCH (08:46)
[2019-09-13] MEDS: Digoxin 0.125 MG TAB PO SCH (08:46)
[2019-09-13] MEDS: Aspirin 81 mg Enteric Coated Tablet PO SCH (08:46)
[2019-09-13] MEDS: Saccharomyces boulardii 250 MG CAP PO SCH (08:47)
[2019-09-13] MEDS: Carvedilol 6.25 MG TAB PO SCH ×2 (08:47→20:00)
[2019-09-13] MEDS: Clopidogrel Bisulfate 75 MG TAB PO SCH (08:47)
[2019-09-13] MEDS: Amlodipine 5 MG TAB PO SCH (08:47)
[2019-09-13] MEDS: COLESTIPOL PO SCH ×2 (08:47→16:41)
[2019-09-13] MEDS: Spironolactone 25 MG TAB PO SCH (08:47)
[2019-09-13] MEDS: Ezetimibe 10 MG TAB PO SCH (08:47)
[2019-09-13] MEDS: Estradiol 1 MG TAB PO SCH (08:47)
[2019-09-13] MEDS: Acetaminophen 325 MG TAB PO PRN (12:18)
--- NOTE | 2019-09-13 17:30 | PDOC.HOSPP ---
- Subjective Subjective: Doing better in general. More alert and appropriate. Has pretty good insight to her prior confusion and has better than expected recall of the past couple of days. - Objective Vital Signs & Weight: Vital Signs (12 hours) Temp Pulse Pulse Resp BP BP Pulse Ox 09/13/19 15:12 97.9 F 78 17 154/72 H 98 09/13/19 14:03 83 172/85 H 09/13/19 12:46 97.3 F L 83 18 130/66 97 09/13/19 08:46 89 09/13/19 08:40 97.9 F 94 16 142/70 H 97 Weight Admit Weight 99 lb 11.2 oz Weight 101 lb I&O: 09/12/19 09/13/19 09/14/19 06:59 06:59 06:59 Intake Total 450 1120 Output Total 700 1254 Balance -250 -134 Result Diagrams: 09/11/19 15:13 09/11/19 15:13 Hospitalist ROS - Medication Medications: Active Medications Generic Name Dose Route Start Last Admin Trade Name Freq PRN Reason Stop Dose Admin Acetaminophen 650 mg 09/09/19 04:30 09/13/19 12:18 Tylenol PO 650 mg Q4H PRN Administration Headache/Fever/Mild Pain (1-3) Amlodipine Besylate 5 mg 09/12/19 09:00 09/13/19 08:47 Norvasc PO 5 mg DAILY DIEGO Administration Aspirin 81 mg 09/09/19 09:00 09/13/19 08:46 Ecotrin PO 81 mg DAILY DIEGO Administration Carvedilol 6.25 mg 09/09/19 09:00 09/13/19 08:47 Coreg PO 6.25 mg BID DIEGO Administration Cholecalciferol 5,000 units 09/09/19 09:00 09/13/19 08:46 Vitamin D3 PO 5,000 units DAILY DIEGO Administration Clopidogrel Bisulfate 75 mg 09/09/19 09:00 09/13/19 08:47 Plavix PO 75 mg DAILY DIEGO Administration Digoxin 0.125 mg 09/09/19 09:00 09/13/19 08:46 Lanoxin PO 0.125 mg DAILY DIEGO Administration Ezetimibe 10 mg 09/09/19 09:00 09/13/19 08:47 Zetia PO 10 mg DAILY DIEGO Administration Enoxaparin Sodium 40 mg 09/09/19 09:00 09/13/19 08:46 Lovenox SC 40 mg 0900 DIEGO Administration Estradiol 0.5 mg 09/09/19 09:00 09/13/19 08:47 Estrace PO 0.5 mg DAILY DIEGO Administration Ketorolac Tromethamine 15 mg 09/09/19 04:31 09/09/19 06:39 Toradol IVP 09/14/19 04:32 15 mg Q6H PRN Administration Pain Lorazepam 0.5 mg 09/10/19 02:10 09/10/19 21:02 Ativan SLOW IVP 0.5 mg Q4H PRN Administration Anxiety/Agitation Magnesium Chloride 128 mg 09/09/19 09:00 09/13/19 14:22 Slow-Mag PO 128 mg TID DIEGO Administration Menthol/Methyl Salicylate 0 gm 09/09/19 06:27 09/09/19 18:04 Muscle Rub Cream (Bengay) TOP 85 gm Q6H PRN Administration Muscle Pain Cholestipol 5 Gms 0 each 09/11/19 17:00 09/13/19 16:41 PO Not Given BID-WM DIEGO Quetiapine Fumarate 50 mg 09/11/19 21:00 09/12/19 21:31 Seroquel PO 50 mg HS DIEGO Administration Saccharomyces Boulardii 250 mg 09/09/19 09:00 09/13/19 08:47 Florastor PO 250 mg DAILY DIEGO Administration Sodium Chloride 10 ml 09/09/19 09:00 09/13/19 08:48 Flush - Normal Saline IVF 10 ml Q12HR DIEGO Administration Spironolactone 25 mg 09/09/19 09:00 09/13/19 08:47 Aldactone PO 25 mg Q2DAYS DIEGO Administration - Exam General Appearance: NAD, awake alert Heart: no murmur, no gallops, no rubs, normal peripheral pulses, irregular Respiratory: CTAB, no wheezes, no rales, no ronchi, normal chest expansion, no tachypnea, normal percussion Gastrointestinal: soft, non-tender, non-distended, normal bowel sounds, no palpable masses, no hepatomegaly, no splenomegaly, no bruit Musculoskeletal: normal tone Psychiatric: normal affect, normal behavior, A&O x 3 Hosp A/P (1) Toxic metabolic encephalopathy Code(s): G92 - TOXIC ENCEPHALOPATHY Status: Acute (2) Chronic atrial fibrillation Code(s): I48.2 - CHRONIC ATRIAL FIBRILLATION * DO NOT USE * Status: Chronic (3) Hypomagnesemia Code(s): E83.42 - HYPOMAGNESEMIA Status: Acute (4) Hypokalemia Code(s): E87.6 - HYPOKALEMIA Status: Acute (5) UTI (urinary tract infection) Status: Acute (6) Hyperbilirubinemia Code(s): E80.6 - OTHER DISORDERS OF BILIRUBIN METABOLISM Status: Acute - Plan Suspect her encephalopathy is multifactorial Meds (Tramadol and Flexeril) and UTI. Repeat UA was clear. Held Statin. Unlikely, but can cause delerium. Usual home meds excep the temazepam. Increased the seroquel from 25 to 50 mg. I think it helped her sleep. Will continue with that tonight. If all goes well, may be able to DC tomorrow. Encouraged po's and activity today. RUQ US for encephalopathy and elevated bilirubin levels. It was normal. Has Watchman device and therefore no anticoagulation.
[2019-09-14] MEDS ORDERED: Melatonin 3 MG TAB PO PRN (00:03)
[2019-09-14] MEDS: Magnesium Chloride 64 MG TAB PO SCH ×2 (08:19→15:22)
[2019-09-14] MEDS: Saccharomyces boulardii 250 MG CAP PO SCH (08:20)
[2019-09-14] MEDS: Amlodipine 5 MG TAB PO SCH (08:20)
[2019-09-14] MEDS: Digoxin 0.125 MG TAB PO SCH (08:20)
[2019-09-14] MEDS: Ezetimibe 10 MG TAB PO SCH (08:20)
[2019-09-14] MEDS: Estradiol 1 MG TAB PO SCH (08:20)
[2019-09-14] MEDS: Aspirin 81 mg Enteric Coated Tablet PO SCH (08:20)
[2019-09-14] MEDS: Clopidogrel Bisulfate 75 MG TAB PO SCH (08:20)
[2019-09-14] MEDS: Enoxaparin Sodium 40 MG/0.4 ML SYRINGE SC SCH (08:21)
[2019-09-14] MEDS: Carvedilol 6.25 MG TAB PO SCH (08:21)
[2019-09-14] MEDS: COLESTIPOL PO SCH (08:21)
[2019-09-14 15:26] VITALS: TEMP 98.2
[2019-09-14 16:06] VITALS: BP 142/71
--- NOTE | 2019-09-15 13:50 | DIS ---
DATE OF ADMISSION: 09/08/2019 DATE OF DISCHARGE: 09/14/2019 DISCHARGE DIAGNOSES: 1. Toxic metabolic encephalopathy secondary to toxic effects of prescribed medications. 2. Urinary tract infection. 3. Chronic atrial fibrillation. 4. Hypomagnesemia. 5. Hypokalemia. 6. Elevated bilirubin. HISTORY OF PRESENT ILLNESS: This patient is a 79-year-old female, who presented to the emergency department with some complaints of pain in her neck area. She was prescribed tramadol and Flexeril and was also noted that the patient took Restoril at nights as part of her usual medications. The patient subsequently developed significant encephalopathy and altered mental status and was subsequently returned back to the emergency department. There, her workup was mostly notable for possible evidence of urinary tract infection and elevated bilirubin levels. HOSPITAL COURSE: The patient was admitted to the hospital, started on some hydration and medications were held. She had mild hypokalemia which was adequately repleted. Troponins remained negative. She was hypomagnesemic with a magnesium of 1.4 and this was also subsequently repleted. Thyroid was normal. Over the following couple of days, the patient remained pleasant, but persistently confused. She was treated with antibiotics for possible urinary tract infection and a right upper quadrant ultrasound was obtained given the elevations of the bilirubin level and the encephalopathy, however, it was unremarkable. Repeat labs revealed a bilirubin decreased from 2.7 to 1.7. Other LFTs remained essentially normal. The patient appeared to actually be getting slightly worse initially; however, she had not slept since admission to any significant degree. She was given some Seroquel and the dose was subsequently increased. With that, she was able to get reasonable amount of sleep and the following day was remarkably better. She was able to get up and walk around with Physical Therapy without much difficulty. She was given one additional day and appeared to have substantial clearing of her encephalopathy and was felt to be stable to return home back to her usual home medications. PHYSICAL EXAMINATION: VITAL SIGNS: On the day of discharge, temperature is 98.2, pulse 80, respirations 18, O2 saturation 96% on room air, BP ranged from 139/95 to 142/71. GENERAL: She was awake and alert. HEART: Irregular without murmurs. LUNGS: Clear. ABDOMEN: Benign. EXTREMITIES: No edema. DISPOSITION: The patient is discharged to home in stable condition. She will be on a heart healthy diet. ACTIVITY: As tolerated. DISCHARGE MEDICATIONS: She will be on a newly prescribed amlodipine 5 mg p.o. daily for hypertension. She will continue with: 1. Zetia 10 mg daily. 2. Temazepam 15 mg at bedtime. 3. Colestipol 1 g b.i.d. with meals. 4. Aldactone 25 mg every other day. 5. Estradiol 0.5 mg daily. 6. Lexapro 10 mg at bedtime. 7. Vitamin D3 5000 units daily. 8. Atorvastatin 80 mg at bedtime. 9. Vascepa 1 g daily with meals. 10. Carvedilol 6.25 mg b.i.d. 11. Plavix 75 mg daily. 12. Aspirin 81 mg daily. 13. Digoxin 0.125 mg daily. 14. Florastor 250 mg daily. 15. Magnesium 128 mg two tabs p.o. t.i.d. 16. She will discontinue tramadol and Flexeril. DISCHARGE INSTRUCTIONS: She will have home health through [facility]. She will follow up with Dr. Carri Maguire in 7 days. She can return to the hospital at anytime should she have any need to do so. Time spent in discharge activities was 31 min Job ID: [id number] MTDD
--- NOTE | 2019-09-16 05:33 | PQF ---
[facility] Chief Nurse Crystal Reports Win[employer] ARABELLA Elaine ANH NAVA MD [id number] [id number] CLINICAL DOCUMENTATION CLARIFICATION FORM: POST DISCHARGE Addendum to original discharge summary date: ____ Late entry note date: __ DATE: 09/16/2019 ATTN:ANH NAVA MD Please exercise your independent, professional judgment in responding to the clarification form. Clinical indicators are provided on the bottom of this form for your review Please check appropriate box(s): Kindly Clarify whether it was adverse effect of medication or over dose of medications [ ] Encephalopathy due to Averse effect of medication [ ] Encephalopathy due to Overdose of medication [ ] Other diagnosis [ ] Unable to determine In addition, please specify: Present on Admission (POA): [ ] Yes [ ] No [ ] Unable to determine For continuity of documentation, please document condition throughout progress notes and discharge summary. Thank You. CLINICAL INDICATORS - SIGNS / SYMPTOMS / LABS Altered Mental Status 2 days - Documented in H&P on 09/08 by Ariel Quiroz MD Patient was discharged with Oral tramadol and oral Flexeril tablets for shoulder pain,neck pain and muscle spasm - Documented in H&P on 09/08 by Ariel Quiroz MD Ongoing confusion and disorientation - Documented in H&P on 09/08 by Ariel Quiroz MD patient daughter noticed that upon injecting the pills only 5 of the Flexeril 10 mg tablet were remaining - Documented in H&P on 09/08 by Ariel Quiroz MD She is unsure if her mother actually overdosed on tablets - Documented in H&P on 09/08 by Ariel Quiroz MD Acute toxic metabolic encephalopathy suspected 2/2 multifactorial etiology including side effects from Flexeril and tramadol as well as UTI - Documented in H&P on 09/08 by Ariel Quiroz MD RISKS: Afib with rapid ventricular response - Documented in H&P on 09/08 by Ariel Quiroz MD UTI - Documented in H&P on 09/08 by Ariel Quiroz MD TREATMENT: Continued on Telemetry monitoring - Documented in H&P on 09/08 by Ariel Quiroz MD will continue IV Rocephin - Documented in H&P on 09/08 by Ariel Quiroz MD will monitor for improvement in mentation - Documented in H&P on 09/08 by Ariel Quiroz MD (This form is maintained as a part of the permanent medical record) 2014 [employer]. All Rights Reserved [email or web address] [not provided] MTDD
--- NOTE | 2019-09-17 12:38 | EKG ---
Test Reason : CONFUSION Blood Pressure : / mmHG Vent. Rate : 103 BPM Atrial Rate : 156 BPM P-R Int : 000 ms QRS Dur : 080 ms QT Int : 350 ms P-R-T Axes : 000 004 226 degrees QTc Int : 458 ms Atrial fibrillation with rapid ventricular response with premature ventricular or aberrantly conducte d complexes Nonspecific T wave abnormality Abnormal ECG Confirmed by ADELE MCDANIELS M.D. ([id number]), editorial clerk BELÉN WAGGONER ([id number]) on 09/17/2019 12:38:16 PM Referred By: Confirmed By:ADELE MCDANIELS M.D.
== END 2019-09-14 15:55 | disposition home health service (06) | DRG 689 ==
LOC: ERS 17:36 → 2NO 23:42
PROVIDERS: ADMIT Hospitalist; ATTEND Hospitalist
DX: N39.0 Urinary tract infection, site not specified (principal); G92 Toxic encephalopathy; I48.20 Chronic atrial fibrillation, unspecified; I10 Essential (primary) hypertension; E78.5 Hyperlipidemia, unspecified; I25.10 Atherosclerotic heart disease of native coronary artery without angina pectoris; E83.42 Hypomagnesemia; E87.6 Hypokalemia; E80.6 Other disorders of bilirubin metabolism; T40.4X5A Adverse effect of other synthetic narcotics, initial encounter; T48.1X5A Adverse effect of skeletal muscle relaxants [neuromuscular blocking agents], initial encounter; Z90.89 Acquired absence of other organs; Z90.710 Acquired absence of both cervix and uterus; Z91.041 Radiographic dye allergy status; Z88.8 Allergy status to other drugs, medicaments and biological substances
CPT/HCPCS: 36415; 70450; 72125; 76705; 80048; 80053; 81003; 81015; 82140; 83690; 83735; 84443; 84484; 85025; 93005; 96365; 96366; 96375; J0696; J1650; J1885; J2060; J2765; J3475; J3490

== ENCOUNTER 2019-11-01 08:11 | Outpatient (CLI) | payer MEDICARE, BC ==
--- NOTE | 2019-11-03 09:35 | CT ---
CT OF THE CHEST WITH IV CONTRAST INDICATION: History of Watchman device placement; shortness of breath and atrial fibrillation. Evalua te for possible leak. COMPARISON: Chest radiograph dated March 06, 2019 through July 12, 2019 FINDINGS: CHEST: Lungs: There are areas of subsegmental volume loss within both lung bases. No consolidation or suspic ious pulmonary nodules identified. Pleural space: No effusion. Mediastinum: A watchman left atrial appendage closure device is present. Small amount of contrast enh ancement is seen within the central aspect of the watchman device on image 53 of the coronal series and on image 62 of the axial series. The majority of the left atrial appendage is occluded. There is no overt evidence of thrombus extension into the left atrium proper. The pulmonary veins appear patent. Upper abdomen:There are numerous scattered granulomas involving the spleen. No acute abnormality is e vident. Osseous structures: No acute osseous abnormality. No destructive osteolytic or osteoblastic lesion i s identified. There is scattered degenerative and osteoarthritic changes. There is mild thoracolumbar scoliosis. Soft tissues:Normal. IMPRESSION: 1. Watchman left atrial appendage closer device. There is near-total occlusion of the left atrial myra endage. A small amount of contrast enhancement is seen within the central aspect of the watchman device.
[2019-11-03] MEDS ORDERED: Iopamidol 370 76% 100 ML VIAL ONE (14:26)
== END 2019-11-01 08:12 | disposition home or self-care (01) ==
LOC: CT 08:11
PROVIDERS: ATTEND Internal Medicine Cardiovascular Disease
DX: I48.91 Unspecified atrial fibrillation (principal); R06.02 Shortness of breath
CPT/HCPCS: 71260; Q9967

== ENCOUNTER 2020-03-07 08:36 | Outpatient (CLI) | payer MEDICARE, BC ==
[2020-02-13 09:30] LABS: Anion Gap 10 mmol/L (10-20); BUN (Urea Nitrogen) 16 mg/dL (9.8-20.1); Calc. Creatinine Clearance 0 mL/min (70-130); Calcium 9.5 mg/dL (7.8-10.44); Carbon Dioxide 30 mmol/L (23-31); Chloride 104 mmol/L (98-107); Estimated GFR-MDRD 61; Glucose 85 mg/dL (83-110); Sodium 140 mmol/L (136-145)
[2020-03-07 09:21] LABS: Anion Gap 12 mmol/L (10-20); BUN (Urea Nitrogen) 23 mg/dL (9.8-20.1); Calc. Creatinine Clearance 0 mL/min (70-130); Calcium 9.7 mg/dL (7.8-10.44); Carbon Dioxide 31 mmol/L (23-31); Chloride 102 mmol/L (98-107); Estimated GFR-MDRD 49; Glucose 137 mg/dL (83-110); Potassium 4.4 mmol/L (3.5-5.1); Sodium 141 mmol/L (136-145)
[2020-03-07] MEDS ORDERED: Iopamidol 370 76% 100 ML VIAL ONE (09:43)
--- NOTE | 2020-03-07 10:19 | CT ---
CT ANGIOGRAM THORAX WITH AND WITHOUT CONTRAST: DATE: 03/07/2020 HISTORY: 79-year-old female with "persistent atrial fibrillation." After initial unsuccessful left atrial closure procedure, a second such procedure was performed. This study is to evaluate the success of that second procedure. COMPARISON: 11/03/2019 TECHNIQUE: Precontrast 5 mm thick slice localizer scan. IV injection of iodinated contrast. Single arterial phase scan through the chest. Lung apices and lateral right lower lung zones excluded from [id number]. 3-D MIP reconstructions. FINDINGS: Previously, there was a Watchman device in the left atrial appendage. The left atrial appendage was p artially filled with clot and partially filled with IV contrast material, indicating incomplete closure. Now, in addition to that Watchman device, there is a new metallic foreign body located anter ior to the Watchman device. It causes severe streak artifact. The streak artifact makes it difficult to determine with certainty whether or not there is residual IV contrast material in the brenda men of the left atrial appendage. However, at the caudal portion of the left atrial appendage, where there was previously some IV contrast material, there is no such IV contrast material currently (that area also has streak artifact, but less than the regions more superiorly). In the upper portion of the left atrial appendage lumen, there appears to be a horizontally oriented thin streak o f what appears to be contrast material (axial image 40 of 84, series 6; coronal image 46 of 114, series 500; sagittal image 77 of 130 series 501). The visualized lung esteban appear to be grossly clear. No pleural effusion or pneumothorax. Atheroscl erotic calcification, ectasia, and tortuosity of thoracic aorta, without dissection or aneurysm. Tiny pericardial effusion. No cardiomegaly. IMPRESSION: In addition to the pre-existing Watchman device, there is now a new metallic object (embolization coi l?) at the far anterior corner of the left atrial appendage. This causes severe streak artifact, making it difficult to evaluate the lumen of the left atrial appendage. Compared to the prior study, at least some of the previously patent portion of the left atrial lumen inferiorly, has now become occluded. However, it is difficult to evaluate the more superior portion of the left atrial appendage lumen because of the severe streak artifact. There is questionably a thin linear tract of possibly patent lumen at the superior portion of the left atrial appendage.
== END 2020-03-07 08:37 | disposition home or self-care (01) ==
LOC: CT 08:36
PROVIDERS: ATTEND Internal Medicine Cardiovascular Disease
DX: I48.19 Other persistent atrial fibrillation (principal); R93.1 Abnormal findings on diagnostic imaging of heart and coronary circulation; Z95.818 Presence of other cardiac implants and grafts
CPT/HCPCS: 36415; 71275; 80048

== ENCOUNTER 2020-07-22 13:11 | Emergency (ER) | payer MEDICARE, BC ==
[2020-07-22] MEDS ORDERED: Boostrix 0.5 ML (Tdap) VIAL ONE (13:27)
[2020-07-22] MEDS ORDERED: Lidocaine 1% w/Epinephrine 1:100K 20 ML VIAL ONE (13:27)
--- NOTE | 2020-07-22 14:02 | CT ---
EXAM: Brain CTWithout contrast: HISTORY: Injury from a fall COMPARISON: 09/07/2019 FINDINGS: No focal mass or midline shift. No intra or extra-axial hemorrhage. Chronic inspissated mucus in the left maxillary sinus evidence for chronic sinusitis. Chronic atrophy and and white matter ischemic changes, stable. IMPRESSION: No mass or bleed or other significant acute intracranial process.
--- NOTE | 2020-07-22 14:11 | CT ---
EXAM: CT scan cervical spineWithout contrast: HISTORY: Injury from a mechanical fall COMPARISON: 09/07/2019 FINDINGS: No evidence for acute fracture or facet dislocation. 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 Stable 0.2 cm diameter anterolisthesis of C7 on T1. Extensive disc osteophytosis at C4-C5 and C5-C6. Approximately 2 cm diameter mass noted to the left side of the esophagus at the T1-T2 level possibly a thyroid mass or a left-sided esophageal diverticulum although appearance is stable from the prior study. No prevertebral soft tissue swelling. IMPRESSION: No evidence for acute fracture or facet dislocation or other significant acute process. Other findings as above.
--- NOTE | 2020-07-22 14:13 | RAD ---
Exam: Right shoulder 3 views: HISTORY: Injury from a fall COMPARISON: None FINDINGS: No evidence for fracture, dislocation, or other significant acute osseous abnormality. IMPRESSION: No significant acute process.
--- NOTE | 2020-07-22 14:15 | RAD ---
EXAM: Lumbar spine 3 views: HISTORY: Injury from a fall COMPARISON: None FINDINGS: No evidence for acute fracture or dislocation or significant acute osseous process. Alignment:Grade 1 anterolisthesis of L5 on S1. Transitional vertebrae at the lumbosacral level with partial lumbarization of S1.. Moderate levoscoliosis. Discs: Generalized disc osteophytosis No evidence for a focal bone lesion. IMPRESSION: No acute process. Other findings as above.
--- NOTE | 2020-07-22 14:16 | RAD ---
Exam: Right hand 3 views: HISTORY: Pain at base of thumb COMPARISON: None FINDINGS: Osteoarthrosis and degenerative changes including the trapezium first metacarpal joint. No evidence for fracture, dislocation, or other significant acute osseous abnormality. IMPRESSION: No significant acute process.
== END 2020-07-22 15:10 | disposition home or self-care (01) ==
LOC: ERS 13:11
DX: S51.811A Laceration without foreign body of right forearm, initial encounter (principal); S00.03XA Contusion of scalp, initial encounter; S60.221A Contusion of right hand, initial encounter; I10 Essential (primary) hypertension; M19.90 Unspecified osteoarthritis, unspecified site; I48.91 Unspecified atrial fibrillation; Z86.73 Personal history of transient ischemic attack (TIA), and cerebral infarction without residual deficits; Z23 Encounter for immunization; Z79.899 Other long term (current) drug therapy; Z79.82 Long term (current) use of aspirin; W18.30XA Fall on same level, unspecified, initial encounter
CPT/HCPCS: 12004; 70450; 72100; 72125; 90471; 90715

== ENCOUNTER 2020-08-09 08:12 | Outpatient (CLI) | payer MEDICARE, BC ==
--- NOTE | 2020-08-09 10:28 | BD ---
DEXA BONE DENSITY STUDY: HISTORY: Postmenopausal. FINDINGS: Lumbar Spine: BMD (g/cm2) L1 1.107 T-Score: +1.1 L2 1.083 T-Score: +0.5 L3 1.144 T-Score: +0.5 L4 1.036 T-Score: -0.2 L1-L4 1.090 T-Score: +0.4 Femoral Neck: 0.697 T-Score: -1.4 Total Femur: 1.019 T-Score: +0.6 Impression: 1. Osteopenia of the left femoral neck and normal bone mineral density of the lumbar spine. 2. Ten-year fracture risk for a major osteoporotic fracture is 10% and of a hip fracture is 2.3%. T hese fracture probabilities are calculated for an untreated patient. POS: MARTÍN
== END 2020-08-09 08:13 | disposition home or self-care (01) ==
LOC: BICMAMMO 08:12
PROVIDERS: ATTEND Internal Medicine Rheumatology
DX: M81.0 Age-related osteoporosis without current pathological fracture (principal); M85.852 Other specified disorders of bone density and structure, left thigh
CPT/HCPCS: 77080

== ENCOUNTER 2021-01-29 09:06 | Emergency (ER) | payer MEDICARE, BC ==
[2021-01-29 09:59] LABS: #Basophils 0.1 thou/uL (0.0-0.2); #Eosinphils 0.1 thou/uL (0.0-0.7); #Monocytes 0.5 thou/uL (0.11-0.59); #Neutrophils 6.4 thou/uL (1.40-6.50); %Basophils 0.7 % (0.0-1.0); %Lymphocytes 21.9 % (21.0-51.0); %Monocytes 5.6 % (0.0-10.0); %Neutrophils 70.9 % (42.0-75.0); Hemoglobin 13.6 g/dL (12.0-16.0); Mean Corpuscular Hemoglobin 31.8 pg (27.0-31.0); Mean Corpuscular Volume 96.4 fL (78.0-98.0); Platelet Count 256 thou/uL (130-400); RBC Distribution Width 13.8 % (11.5-14.5); Red Blood Cell (RBC) Count 4.27 mill/uL (4.20-5.40); White Blood Cell (WBC) Count 9.1 thou/uL (4.8-10.8)
[2021-01-29 10:19] LABS: ALT (SGPT) 18 U/L (8-55); AST (SGOT) 24 U/L (5-34); Albumin 4.4 g/dL (3.4-4.8); Alkaline Phosphatase 114 U/L (40-110); Anion Gap 20 mmol/L (10-20); BUN (Urea Nitrogen) 18 mg/dL (9.8-20.1); Calc. Creatinine Clearance 0 mL/min (70-130); Calcium 9.5 mg/dL (7.8-10.44); Carbon Dioxide 25 mmol/L (23-31); Chloride 101 mmol/L (98-107); Globulin 2.9 g/dL (2.4-3.5); Glucose 79 mg/dL (83-110); Magnesium 1.6 mg/dL (1.6-2.6); Potassium 3.5 mmol/L (3.5-5.1); Protein, Total 7.3 g/dL (5.8-8.1); Sodium 142 mmol/L (136-145)
[2021-01-29 11:24] LABS: Bilirubin Negative (Negative); Blood, Urine Negative (Negative); Clarity Clear (Clear); Glucose, Urine (Dipstick) Normal (Negative); Ketone, Urine 40 mg/dL (Negative); Leukocyte 500 Leu/uL (Negative); Nitrite Negative (Negative); Protein, Urine (Dipstick) Negative (Neg-Trace); RBC/HPF 0-3 HPF (0-3); Specific Gravity, Urine 1.011 (1.002-1.036); Squamous Epithelial 0-3 HPF (0-3); Urobilinogen Normal mg/dL (Less than 2); pH, Urine 6.5 (5.0-9.0)
[2021-01-29 11:26] LABS: Bacteria/HPF Rare-Few HPF (None Seen)
== END 2021-01-29 12:45 | disposition home or self-care (01) ==
LOC: ERS 09:06
DX: E86.0 Dehydration (principal); R19.7 Diarrhea, unspecified; I10 Essential (primary) hypertension; M19.90 Unspecified osteoarthritis, unspecified site; I48.91 Unspecified atrial fibrillation; K58.9 Irritable bowel syndrome, unspecified; Z86.73 Personal history of transient ischemic attack (TIA), and cerebral infarction without residual deficits
CPT/HCPCS: 36415; 71045; 80053; 81003; 81015; 83735; 83880; 84484; 85025; 93005

== ENCOUNTER 2021-01-30 09:56 | Inpatient (IN) | payer MEDICARE, BC ==
[2021-01-30] MEDS ORDERED: Ondansetron PF 4 MG/2 ML Vial ONE (10:51)
[2021-01-30 10:52] LABS: #Eosinphils 0.1 thou/uL (0.0-0.7); #Lymphocytes 3.4 thou/uL (1.20-3.40); #Monocytes 0.6 thou/uL (0.11-0.59); #Neutrophils 6.3 thou/uL (1.40-6.50); %Basophils 0.4 % (0.0-1.0); %Eosinophils 0.6 % (0.0-10.0); %Lymphocytes 32.7 % (21.0-51.0); %Monocytes 5.6 % (0.0-10.0); %Neutrophils 60.7 % (42.0-75.0); Hemoglobin 15.3 g/dL (12.0-16.0); Mean Corpuscular HGB CONC 33.4 g/dL (32.0-36.0); Mean Corpuscular Hemoglobin 32.4 pg (27.0-31.0); Mean Corpuscular Volume 97.2 fL (78.0-98.0); Mean Platelet Volume 7.3 fL (7.4-10.4); Platelet Count 313 thou/uL (130-400); RBC Distribution Width 14.1 % (11.5-14.5); Red Blood Cell (RBC) Count 4.71 mill/uL (4.20-5.40); White Blood Cell (WBC) Count 10.4 thou/uL (4.8-10.8)
[2021-01-30 11:05] LABS: ALT (SGPT) 22 U/L (8-55); AST (SGOT) 32 U/L (5-34); Albumin 4.7 g/dL (3.4-4.8); Alkaline Phosphatase 128 U/L (40-110); Anion Gap 22 mmol/L (10-20); BUN (Urea Nitrogen) 12 mg/dL (9.8-20.1); Bilirubin, Total 2.4 mg/dL (0.2-1.2); Calc. Creatinine Clearance 0 mL/min (70-130); Calcium 10.2 mg/dL (7.8-10.44); Carbon Dioxide 20 mmol/L (23-31); Chloride 99 mmol/L (98-107); Globulin 3.6 g/dL (2.4-3.5); Glucose 99 mg/dL (83-110); Lipase 38 U/L (8-78); Magnesium 1.5 mg/dL (1.6-2.6); Potassium 3.4 mmol/L (3.5-5.1); Protein, Total 8.3 g/dL (5.8-8.1); Sodium 138 mmol/L (136-145)
[2021-01-30] MEDS ORDERED: Lorazepam 2 MG/ML VIAL ONE (11:09)
[2021-01-30] MEDS ORDERED: Diltiazem HCl 125 MG, Admixture Fee 1 EACH in Sodium Chloride 0.9% 100 ML IVPB SCH (11:45)
[2021-01-30 12:16] LABS: Bilirubin Negative (Negative); Blood, Urine Negative (Negative); Clarity Clear (Clear); Glucose, Urine (Dipstick) Normal (Negative); Ketone, Urine 40 mg/dL (Negative); Leukocyte Negative Leu/uL (Negative); Nitrite Negative (Negative); Protein, Urine (Dipstick) Negative (Neg-Trace); Specific Gravity, Urine 1.009 (1.002-1.036); Urobilinogen Normal mg/dL (Less than 2); pH, Urine 6.5 (5.0-9.0)
[2021-01-30] MEDS ORDERED: Metoprolol Tartrate 5 MG/5 ML VIAL IVP PRN (12:21)
[2021-01-30] MEDS ORDERED: Electrolyte Replacement Protocol 1 EACH FS SCH (12:30)
[2021-01-30] MEDS ORDERED: Electrolyte Replacement Protocol FS PRN (12:30)
[2021-01-30 14:00] LABS: Troponin I Less than 0.010 ng/mL (< 0.028)
[2021-01-30] MEDS ORDERED: ceFAZolin 1 GM/D5W 1 GM in Premix Bag 1 BAG IVPB SCH (14:00)
[2021-01-30] MEDS: Sodium Chloride 0.9% 1,000 ML IV SCH (14:58)
[2021-01-30] MEDS: Icosapent Ethyl 1 GM CAPSULE PO SCH (16:45)
[2021-01-30] MEDS ORDERED: Spironolactone 25 MG TAB PO SCH (17:00)
[2021-01-30 17:02] LABS: Troponin I Less than 0.010 ng/mL (< 0.028)
[2021-01-30] MEDS: Acetaminophen 500 MG TAB PO PRN (20:46)
[2021-01-30] MEDS: Atorvastatin Calcium 40 MG TAB PO SCH (20:46)
[2021-01-30] MEDS: Escitalopram Oxalate 10 mg Tablet PO SCH (20:46)
[2021-01-30] MEDS ORDERED: CHONDRO SU A PO SCH (21:00)
[2021-01-30] MEDS ORDERED: GLUCOSAMINE PO SCH (21:00)
[2021-01-31] MEDS: Sodium Chloride 0.9% 1,000 ML IV SCH ×3 (03:36→20:45)
[2021-01-31 04:54] LABS: Anion Gap 12 mmol/L (10-20); BUN (Urea Nitrogen) 8 mg/dL (9.8-20.1); Calc. Creatinine Clearance 48 mL/min (70-130); Calcium 8.5 mg/dL (7.8-10.44); Carbon Dioxide 25 mmol/L (23-31); Chloride 107 mmol/L (98-107); Glucose 86 mg/dL (83-110); Magnesium 1.4 mg/dL (1.6-2.6); Sodium 141 mmol/L (136-145)
[2021-01-31 06:45] LABS: #Basophils 0.1 thou/uL (0.0-0.2); #Eosinphils 0.1 thou/uL (0.0-0.7); #Lymphocytes 2.3 thou/uL (1.20-3.40); #Monocytes 0.5 thou/uL (0.11-0.59); #Neutrophils 3.9 thou/uL (1.40-6.50); %Eosinophils 1.3 % (0.0-10.0); %Lymphocytes 33.4 % (21.0-51.0); %Monocytes 7.7 % (0.0-10.0); %Neutrophils 56.7 % (42.0-75.0); Hemoglobin 12.8 g/dL (12.0-16.0); Mean Corpuscular HGB CONC 33.4 g/dL (32.0-36.0); Mean Corpuscular Hemoglobin 32.5 pg (27.0-31.0); Mean Corpuscular Volume 97.5 fL (78.0-98.0); Mean Platelet Volume 6.7 fL (7.4-10.4); Platelet Count 231 thou/uL (130-400); Red Blood Cell (RBC) Count 3.95 mill/uL (4.20-5.40); White Blood Cell (WBC) Count 6.9 thou/uL (4.8-10.8)
[2021-01-31] MEDS: Icosapent Ethyl 1 GM CAPSULE PO SCH ×2 (09:21→17:14)
[2021-01-31] MEDS: Clopidogrel Bisulfate 75 MG TAB PO SCH (09:22)
[2021-01-31] MEDS: Ezetimibe 10 MG TAB PO SCH (09:22)
[2021-01-31] MEDS: Aspirin 81 mg Enteric Coated Tablet PO SCH (09:22)
[2021-01-31] MEDS: Amlodipine 5 MG TAB PO SCH (09:22)
[2021-01-31] MEDS: Cholecalciferol 1,000 UNITS (25 MCG) TAB PO SCH (09:23)
[2021-01-31 11:48] LABS: SARS-CoV-2 PCR by NAA Not Detected (NotDetected)
[2021-01-31] MEDS: Magnesium 2 GM/50 ML 2 GM in Premix Bag 1 BAG IVPB SCH ×2 (12:16→15:09)
[2021-01-31] MEDS ORDERED: Potassium Chloride 20 MEQ TAB PO SCH (13:30)
[2021-01-31] MEDS ORDERED: Spironolactone 25 MG TAB PO SCH (17:00)
[2021-01-31] MEDS: Spironolactone 25 MG TAB PO SCH (17:14)
[2021-01-31] MEDS: Atorvastatin Calcium 40 MG TAB PO SCH (20:08)
[2021-01-31] MEDS: Escitalopram Oxalate 10 mg Tablet PO SCH (20:08)
[2021-01-31 20:31] LABS: Anion Gap 14 mmol/L (10-20); BUN (Urea Nitrogen) 9 mg/dL (9.8-20.1); Calc. Creatinine Clearance 41 mL/min (70-130); Calcium 9.1 mg/dL (7.8-10.44); Carbon Dioxide 26 mmol/L (23-31); Chloride 104 mmol/L (98-107); Glucose 102 mg/dL (83-110); Magnesium 2.4 mg/dL (1.6-2.6); Potassium 3.7 mmol/L (3.5-5.1); Sodium 140 mmol/L (136-145)
[2021-01-31] MEDS: Acetaminophen 500 MG TAB PO PRN (22:23)
[2021-02-01 05:15] LABS: Anion Gap 11 mmol/L (10-20); BUN (Urea Nitrogen) 10 mg/dL (9.8-20.1); Calc. Creatinine Clearance 43 mL/min (70-130); Calcium 8.9 mg/dL (7.8-10.44); Carbon Dioxide 28 mmol/L (23-31); Chloride 106 mmol/L (98-107); Glucose 87 mg/dL (83-110); Potassium 3.7 mmol/L (3.5-5.1); Sodium 141 mmol/L (136-145)
[2021-02-01] MEDS: Cholecalciferol 1,000 UNITS (25 MCG) TAB PO SCH (09:26)
[2021-02-01] MEDS: Clopidogrel Bisulfate 75 MG TAB PO SCH (09:26)
[2021-02-01] MEDS: Amlodipine 5 MG TAB PO SCH (09:27)
[2021-02-01] MEDS: Icosapent Ethyl 1 GM CAPSULE PO SCH ×2 (09:27→16:30)
[2021-02-01] MEDS: Ezetimibe 10 MG TAB PO SCH (09:28)
[2021-02-01] MEDS: Aspirin 81 mg Enteric Coated Tablet PO SCH (09:28)
[2021-02-01] MEDS ORDERED: Estradiol 0.01% Vaginal Cream 42.5 gm Tube VAG SCH (11:00)
[2021-02-01] MEDS: cefTRIAXone\\ROCEPHIN 1 GM in Sodium Chloride 0.9% 100 ML IVPB SCH (13:09)
[2021-02-01] MEDS: Acetaminophen 500 MG TAB PO PRN (21:13)
[2021-02-01] MEDS: Atorvastatin Calcium 40 MG TAB PO SCH (21:13)
[2021-02-01] MEDS: Escitalopram Oxalate 10 mg Tablet PO SCH (21:13)
[2021-02-02 05:08] LABS: Anion Gap 11 mmol/L (10-20); BUN (Urea Nitrogen) 9 mg/dL (9.8-20.1); Calc. Creatinine Clearance 44 mL/min (70-130); Calcium 9.1 mg/dL (7.8-10.44); Carbon Dioxide 29 mmol/L (23-31); Chloride 104 mmol/L (98-107); Glucose 95 mg/dL (83-110); Magnesium 1.6 mg/dL (1.6-2.6); Potassium 3.6 mmol/L (3.5-5.1); Sodium 140 mmol/L (136-145)
[2021-02-02] MEDS ORDERED: Magnesium 2 GM/50 ML 2 GM in Premix Bag 1 BAG IVPB SCH (07:00)
[2021-02-02] MEDS: Cholecalciferol 1,000 UNITS (25 MCG) TAB PO SCH (08:32)
[2021-02-02] MEDS: Amlodipine 5 MG TAB PO SCH (08:32)
[2021-02-02] MEDS: Aspirin 81 mg Enteric Coated Tablet PO SCH (08:33)
[2021-02-02] MEDS: Ezetimibe 10 MG TAB PO SCH (08:33)
[2021-02-02] MEDS: Icosapent Ethyl 1 GM CAPSULE PO SCH ×2 (08:38→16:10)
[2021-02-02] MEDS: Clopidogrel Bisulfate 75 MG TAB PO SCH (08:38)
[2021-02-02] MEDS: cefTRIAXone\\ROCEPHIN 1 GM in Sodium Chloride 0.9% 100 ML IVPB SCH (10:31)
[2021-02-02] MEDS: Spironolactone 25 MG TAB PO SCH (16:10)
[2021-02-02] MEDS ORDERED: Potassium Chloride 20 MEQ TAB PO SCH (16:15)
[2021-02-02] MEDS: Escitalopram Oxalate 10 mg Tablet PO SCH (20:25)
[2021-02-02] MEDS: Atorvastatin Calcium 40 MG TAB PO SCH (20:25)
[2021-02-03 05:44] LABS: Anion Gap 14 mmol/L (10-20); BUN (Urea Nitrogen) 10 mg/dL (9.8-20.1); Calc. Creatinine Clearance 44 mL/min (70-130); Calcium 9.2 mg/dL (7.8-10.44); Carbon Dioxide 28 mmol/L (23-31); Chloride 103 mmol/L (98-107); Glucose 90 mg/dL (83-110); Magnesium 1.8 mg/dL (1.6-2.6); Potassium 3.8 mmol/L (3.5-5.1); Sodium 141 mmol/L (136-145)
[2021-02-03] MEDS ORDERED: Magnesium 2 GM/50 ML 2 GM in Premix Bag 1 BAG IVPB SCH (07:15)
[2021-02-03] MEDS ORDERED: Sodium Chloride 0.9% 500 ML IV SCH (08:00)
[2021-02-03] MEDS: Ezetimibe 10 MG TAB PO SCH (08:27)
[2021-02-03] MEDS: Cholecalciferol 1,000 UNITS (25 MCG) TAB PO SCH (08:28)
[2021-02-03] MEDS: Clopidogrel Bisulfate 75 MG TAB PO SCH (08:28)
[2021-02-03] MEDS: Icosapent Ethyl 1 GM CAPSULE PO SCH (08:28)
[2021-02-03] MEDS: Amlodipine 5 MG TAB PO SCH (08:28)
[2021-02-03] MEDS: Aspirin 81 mg Enteric Coated Tablet PO SCH (08:28)
[2021-02-03 11:52] VITALS: BP 163/86; TEMP 97.2
== END 2021-02-03 14:45 | disposition home or self-care (01) | DRG 690 ==
LOC: ERS 09:56 → 2NO 11:46 → OBSVTOIN 01-31 23:14
PROVIDERS: ADMIT Internal Medicine; ATTEND Family Medicine
DX: N39.0 Urinary tract infection, site not specified (principal); I48.20 Chronic atrial fibrillation, unspecified; Z20.822 Contact with and (suspected) exposure to COVID-19; K58.0 Irritable bowel syndrome with diarrhea; M19.90 Unspecified osteoarthritis, unspecified site; I25.10 Atherosclerotic heart disease of native coronary artery without angina pectoris; E78.00 Pure hypercholesterolemia, unspecified; E83.42 Hypomagnesemia; I10 Essential (primary) hypertension; F41.9 Anxiety disorder, unspecified; E87.6 Hypokalemia; E86.0 Dehydration; B96.20 Unspecified Escherichia coli [E. coli] as the cause of diseases classified elsewhere; G47.33 Obstructive sleep apnea (adult) (pediatric); Z86.73 Personal history of transient ischemic attack (TIA), and cerebral infarction without residual deficits; Z90.710 Acquired absence of both cervix and uterus; Z79.82 Long term (current) use of aspirin; Z79.899 Other long term (current) drug therapy; Z91.041 Radiographic dye allergy status; Z88.8 Allergy status to other drugs, medicaments and biological substances
CPT/HCPCS: 36415; 51701; 71045; 80048; 80053; 81003; 81015; 83605; 83690; 83735; 83880; 84484; 85025; 87077; 87086; 87186; 93005; 96365; 96375; 96376; G0378; J0690; J0696; J2060; J2405; J3475; J3490; U0003; U0005

== ENCOUNTER 2021-06-27 07:56 | Outpatient (CLI) | payer MEDICARE, BC | END 2021-06-27 07:57 | disposition home or self-care (01) | LOC: BICMAMMO 07:56 | PROVIDERS: ATTEND Internal Medicine | DX: Z12.31 Encounter for screening mammogram for malignant neoplasm of breast (principal) | CPT/HCPCS: 77063; 77067 ==